=== PATIENT | male | born 1945 | race Caucasian/White ===

== ENCOUNTER 2016-02-22 11:11 | Outpatient (RCR) | payer BC, OTHER ==
[~2016-02-22 11:11] MED LIST: AMBROTOSE PO; AMLO5TAB2 PO; ASP325T PO; ATOR40TA PO; CLOP75TA PO; DCS100C PO; GARL400T13 PO; HYDR-3454 PO; LISI5TAB PO; METH500T7 PO; METO25TA2 PO; MTF500T PO; OMEG-12 PO; RANI75TA30 PO; SAWP1CAP PO; VITA200C53 PO; latanaprost OU
== END 2016-03-15 08:53 | disposition home or self-care (01) ==
PROVIDERS: ATTEND Nurse Practitioner
DX: M25.511 Pain in right shoulder (principal)

== ENCOUNTER → 2016-08-02 | Outpatient (CLI) | payer MEDICARE, OTHER | LOC: CARD 11:10 | PROVIDERS: ATTEND Physician Assistant | DX: I25.10 Atherosclerotic heart disease of native coronary artery without angina pectoris (principal); I10 Essential (primary) hypertension; E78.2 Mixed hyperlipidemia | CPT/HCPCS: 93306 ==

== ENCOUNTER → 2016-08-21 | Outpatient (CLI) | payer MEDICARE, OTHER ==
[~2016-08-21] MED LIST changes: +CATHETER FLUSH 10 ML SYR IV PRN; +REGADENOSON 0.4 MG/5 ML SYR (LEXISCAN) IV ONE
[2016-08-21 09:15] VITALS: BP 127/65
--- NOTE | 2016-08-21 14:16 | STRESS TEST ---
PROCEDURE PHYSICIAN: PATT CHOI DATE OF PROCEDURE: 08/21/2016 LEXISCAN MYOVIEW STRESS TEST REPORT: REFERRING PHYSICIAN: Mel Aragon APRN BASELINE HEART RATE: 50 BASELINE BLOOD PRESSURE: 122/64 BASELINE EKG: Sinus rhythm with no ischemic changes. IN SUMMARY: The patient was injected with 10.44 mCi of technetium 99 Myoview and the resting images were obtained. Then the patient received 0.4 mg of Lexiscan followed by 30.9 mCi of technetium 99 Myoview. Throughout the test, there were no EKG changes. The resting and stress images were reviewed and compared in the short axis, horizontal long axis, and vertical long axis views. Review of the images showed diaphragmatic attenuation with typical male pattern. No significant ischemia or infarction was seen. SSS is 4, SDS 2, TID value 1.01. On the gated images, the left ventricle appeared to be normal size with normal contractility. Calculated ejection fraction 60%. IN CONCLUSION: 1. The patient tolerated Lexiscan well. 2. Diaphragmatic attenuation with typical male pattern. No significant ischemia or infarction on SPECT images. 3. Normal left ventricular size with normal contractility. Calculated ejection fraction 60%. Job ID: [id number] Dictated Date: 08/21/2016 12:31:42 Advertising Intern Date: 08/21/2016 14:12:42 / chayo
== END ==
LOC: CARD 07:45
PROVIDERS: ATTEND Physician Assistant
DX: E78.2 Mixed hyperlipidemia; I10 Essential (primary) hypertension; I25.10 Atherosclerotic heart disease of native coronary artery without angina pectoris
CPT/HCPCS: 78452; 93017

== ENCOUNTER → 2017-03-14 | Outpatient (CLI) | payer MEDICARE, OTHER ==
[~2017-03-14] MED LIST changes: -CATHETER FLUSH 10 ML SYR IV PRN; -REGADENOSON 0.4 MG/5 ML SYR (LEXISCAN) IV ONE
--- NOTE | 2017-03-14 12:30 | Diagnostic Imaging Report ---
PROCEDURE: US Bilateral lower extremity arterial. TECHNIQUE: Multiple Real-time grayscale images are obtained through both lower extremity arterial systems with color Doppler imaging and color Doppler spectral analysis. INDICATION: Bilateral leg pain. FINDINGS: Postsurgical changes on the right are identified. The patient reportedly has a right iliofemoral graft as well as a right femoropopliteal graft. The grafts appear to be patent. There are primarily biphasic waveforms throughout both the right and left lower extremity arterial systems. No occlusions are seen. No elevated velocity to suggest a stenosis is identified. IMPRESSION: The right-sided grafts are patent. No high-grade stenosis or occlusion is identified. Dictated by: Dictated on workstation # [id number]
== END ==
LOC: RAD 08:46
PROVIDERS: ATTEND Family Medicine
DX: M79.604 Pain in right leg (principal); M79.605 Pain in left leg
CPT/HCPCS: 93925

== ENCOUNTER 2017-04-05 10:45 | Outpatient (RCR) | payer OTHER | END 2017-04-05 11:20 | disposition home or self-care (01) | PROVIDERS: ATTEND Nurse Practitioner | DX: M54.5 Low back pain (principal) ==

== ENCOUNTER → 2018-01-31 | Outpatient (CLI) | payer MEDICARE, OTHER | LOC: CARD 10:51 | PROVIDERS: ATTEND Family Medicine | DX: I25.10 Atherosclerotic heart disease of native coronary artery without angina pectoris (principal); I65.29 Occlusion and stenosis of unspecified carotid artery; I10 Essential (primary) hypertension; E78.2 Mixed hyperlipidemia; E11.9 Type 2 diabetes mellitus without complications; I08.0 Rheumatic disorders of both mitral and aortic valves | CPT/HCPCS: 93306 ==

== ENCOUNTER → 2019-04-30 | Day surgery (SDC) | payer MEDICARE, OTHER ==
[~2019-04-30] VITALS: Ht 177.8 cm; Wt 66.8 kg
[~2019-04-30] MED LIST changes: +LIDOCAINE 1% INJ 20 ML 20 ML VIAL ONE
[2019-04-30 08:33] VITALS: BP 130/68
--- NOTE | 2019-04-30 08:50 | NUR ---
LIDOCAINE 1% 20 ML ADMIN FOR LOOP INSERTION
--- NOTE | 2019-04-30 10:02 | Implantation of Loop Monitor ---
Implant of Loop Monitior IMPLANTATION OF LOOP MONITOR REPORT DATE OF PROCEDURE: 04/30/19 PREOP DIAGNOSIS: Paroxysmal atrial fibrillation POSTOP DIAGNOSIS: Paroxysmal atrial fibrillation PROCEDURE DETAILS: The patient is a 74 male with history of paroxysmal atrial fibrillation requiring long-term surveillance. Therefore implantable loop recorder was discussed and agreed with the patient. Informed consent was taken. All risks and complications were discussed at length. The patient was draped and prepped in the usual sterile fashion. Local anesthesia was lidocaine, which was given in the substernal area close to the 4th intercostal space. Loop monitor [employer] [id number] was implanted according to the protocol. Steri-Strips were placed at the end of the procedure. There were no complications and the patient tolerated the procedure well. The device was interrogated with a voltage of. ANESTHESIA: Local anesthesia with lidocaine. COMPLICATIONS: None CONTRAST/FLUOROSCOPY: None CONCLUSION: Successful implantation of loop recorder with application PATT CHOI MD Apr 30, 2019 10:02
== END ==
LOC: CATH 08:00
PROVIDERS: ATTEND Internal Medicine Cardiovascular Disease
DX: I48.0 Paroxysmal atrial fibrillation (principal); E11.51 Type 2 diabetes mellitus with diabetic peripheral angiopathy without gangrene; I10 Essential (primary) hypertension; I25.10 Atherosclerotic heart disease of native coronary artery without angina pectoris; I27.20 Pulmonary hypertension, unspecified; I65.29 Occlusion and stenosis of unspecified carotid artery; I35.1 Nonrheumatic aortic (valve) insufficiency; E78.2 Mixed hyperlipidemia; Z79.899 Other long term (current) drug therapy; Z79.82 Long term (current) use of aspirin; Z79.84 Long term (current) use of oral hypoglycemic drugs; Z83.3 Family history of diabetes mellitus; Z82.3 Family history of stroke
CPT/HCPCS: 33285

== ENCOUNTER → 2019-06-16 | Outpatient (CLI) | payer MEDICARE, OTHER ==
[~2019-06-16] MED LIST changes: -LIDOCAINE 1% INJ 20 ML 20 ML VIAL ONE
== END ==
LOC: CARD 08:13
PROVIDERS: ATTEND Internal Medicine Cardiovascular Disease
DX: I73.9 Peripheral vascular disease, unspecified (principal); I48.0 Paroxysmal atrial fibrillation; I10 Essential (primary) hypertension; E78.2 Mixed hyperlipidemia; I25.10 Atherosclerotic heart disease of native coronary artery without angina pectoris; I08.3 Combined rheumatic disorders of mitral, aortic and tricuspid valves
CPT/HCPCS: 93306

== ENCOUNTER 2019-12-24 07:17 | Emergency (ER) | payer MEDICARE, OTHER ==
[~2019-12-24] VITALS: Ht 177 cm; Wt 67.0 kg
[2019-12-24] MEDS ORDERED: HYDROcodone/APAP 5 MG/325 MG (LORTAB) TAB PO ONE (07:45)
[2019-12-24] MEDS ORDERED: ORPHENADRINE 60 MG/2 ML (NORFLEX) AMP (ED ONLY) IM ONE (07:45)
--- NOTE | 2019-12-24 07:48 | ED Back Pain ---
General Chief Complaint: Back Problems Stated Complaint: LEG PAIN Source of Information: Patient Exam Limitations: No Limitations History of Present Illness Date Seen by Provider: Dec 24, 2019 Time Seen by Provider: 07:30 Initial Comments Patient is a 74yo male who presents to the ER with a chief complaint of low back pain. He states that it started last night all of a sudden. He denies any strenuous activity. No heavy lifting. He states that it radiated down both legs, but is not constant in his legs, only in his back. Movement seems to make the pain worse, although he did state that he got a little relief laying on his left side. He used an over the counter muscle rub without relief. Did not take any tylenol, ibuprofen. Patient denies belly pain. He denies any loss of continence - either bowel or bladder. He states that he has control of his urine. He denies numbness to his groin/ lower. extremities. No other GI or complaints. All other ROS reviewed and negative except as stated. Location: Lumbar Spine Timing/Duration: 12 Hours Severity: Severe Pain/Injury Location: Back Radiation: Lower Legs, Upper Legs Method of Injury: Other Allergies and Home Medications Allergies Coded Allergies: NKANo Known Allergies (Verified Allergy, Unknown, 02/28/06) Home Medications Amlodipine Besylate 5 Mg Tablet, 5 MG PO DAILY, (Reported) Aspirin 325 Mg Tab, 325 MG PO DAILY, (Reported) Docusate Sodium 100 Mg Cap, 100 MG PO BID Prescribed by: DEE PAGAN on 08/08/13 08 Hydrocodone Bit/Acetaminophen 1 Each Tablet, 1 TAB PO Q4H PRN for PAIN Prescribed by: DEE PAGAN on 08/08/13835 Lisinopril 5 Mg Tablet, 10 MG PO DAILY, (Reported) Metformin Hcl 500 Mg Tablet, 1 EACH PO BID WITH MEALS, (Reported) Methocarbamol 500 Mg Tablet, 500 MG PO TID Prescribed by: DEE PAGAN on 08/08/13835 Metoprolol Tartrate 25 Mg Tablet, 12.5 MG PO BID Prescribed by: DEE PAGAN on 08/08/13835 Chloe-3/Dha/Epa/Fish Oil 1 Each Capsule.dr, 3 EACH PO DAILY, (Reported) Ranitidine Hcl 75 Mg Tablet, 150 MG PO BID, (Reported) Patient Home Medication List Home Medication List Reviewed: Yes Review of Systems Constitutional: no symptoms reported EENTM: no symptoms reported Respiratory: no symptoms reported Cardiovascular: no symptoms reported Gastrointestinal: no symptoms reported Genitourinary: no symptoms reported Musculoskeletal: back pain Skin: no symptoms reported All Other Systems Reviewed Negative Unless Noted: Yes Past Folgtzc-Gltuqe-Yapkpj Hx Patient Social History Alcohol Use: Denies Use Recreational Drug Use: No Smoking Status: Former Smoker Recent Hopitalizations: No Physical Abuse: No Sexual Abuse: No Immunizations Up To Date Tetanus Booster (TDap): Less than 5yrs Date of Pneumonia Vaccine: Nov 12, 2017 Date of Influenza Vaccine: Nov 12, 2018 Past Medical History Surgeries: Yes (BACK SX, AVR) Valve Replacement Respiratory: No Cardiac: Yes (CAD/MT ) Coronary Artery Disease, High Cholesterol, Hypertension, Peripheral Vascular, Valvular Heart Disease Neurological: No Genitourinary: No Gastrointestinal: Yes Polyps Musculoskeletal: Yes Back Injury Endocrine: Yes Diabetes, Non-Insulin dep Cancer: No Blood Disorders: No Adverse Reaction/Blood Tranf: No Family Medical History Cancer of colon G8 BROTHER (colon & bladder ca at age 63) G8 BROTHER (unknown ca at 65) Chest pain G8 SISTER (mi & htn) Family history: Cardiovascular disease 19 FATHER (68) G8 BROTHER History of - respiratory disease 19 MOTHER (complications from emphesma) Physical Exam Vital Signs Vital Signs - First Documented 12/24/19 07:20 Temp 36.5 Pulse 65 Resp 16 B/P (MAP) 126/65 (85) Pulse Ox 94 Capillary Refill : Height, Weight, BMI Height: 5'10.00" Weight: 144lbs. 0.0oz. 65.911855bp; 21.13 BMI Method: General Appearance: No Apparent Distress, WD/WN, Thin Neck: Full Range of Motion Cardiovascular: Regular Rate, Rhythm, No Murmur Respiratory: Lungs Clear, Normal Breath Sounds, No Accessory Muscle Use, No Respiratory Distress Peripheral Pulses: 2+ Femoral (R), 2+ Femoral (L), 2+ Dorsalis Pedis (R), 2+ Left Dors-Pedis (L) Gastrointestinal: Normal Bowel Sounds, No Pulsatile Mass, Non Tender, Soft Extremity: Normal Capillary Refill, Normal Inspection, Normal Range of Motion, Non Tender, Other (2+ patellar reflexes bilateral LE; neg straight leg riase bilaterally (pain in his back with SLR)) Neurologic/Psychiatric: Alert, Oriented x3, No Motor/Sensory Deficits, Normal 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, 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 as Tested Skin: Normal Color, Warm/Dry Progress/Results/Core Measures Results/Orders My Orders Orders - VICTORINA ORTIZ MD Orphenadrine Inj (Ed Only) (Norflex Inje (12/24/19 07:45) Hydrocodone/Apap 5/325 Tablet (Lortab 5 (12/24/19 07:45) Lumbar Spine - 2-3 Views (12/24/19 08:27) Prednisone Tablet (Deltasone Tablet) (12/24/19 08:30) Medications Given in ED Current Medications Medications Dose Ordered Sig/Tee Route Start Time Stop Time Status Last Admin Dose Admin Acetaminophen/ Hydrocodone Bitart 1 tab ONCE ONCE PO 12/24/19 07:45 12/24/19 07:46 DC 12/24/19 07:53 1 TAB Orphenadrine Citrate 30 mg ONCE ONCE IM 12/24/19 07:45 12/24/19 07:46 DC 12/24/19 07:53 30 MG Prednisone 40 mg ONCE ONCE PO 12/24/19 08:30 12/24/19 08:31 DC 12/24/19 08:45 40 MG Vital Signs/I&O 12/24/19 07:20 Temp 36.5 Pulse 65 Resp 16 B/P (MAP) 126/65 (85) Pulse Ox 94 Progress Progress Note : Time: 08:28 Progress Note 74yo male to the ER with a complaint of low back pain - reevaluation after norflex and lortab reveal continuation of pain - not much improvement. He does not have pain in his legs, just his low back. will obtain plain xrays of his lumbar spine while waiting for meds to continue to work. I will also add 40mg of prednisone to the regimen. Anticipate follow up with his PCP, Dr Rodriguez. THe patient does not have any findings concerning for AAA, acute cauda equina syn drome..No clinical or objective findings to warrant emergent CT or MRI. I believe his pain can be conservatively managed until he follows up with his PCP. 0912 Patient states that he is feeling a little better. Discussed follow up with his PCP and physical therapy. Home with prednisone and lortab for pain. Also recommendations for over the counter pain relief patches. Diagnostic Imaging Diagonstic Imaging: Xray Plain Films/CT/US/NM/MRI: other (lumbar spine) Comments evidence of prior fusion at L2, L3. other shi normal alighnment; degenerative joint disease; no obvious fractures/dislocations (interpreted by me) Departure Impression Primary Impression: Lumbar back pain Disposition: HOME, SELF-CARE Condition: Stable Departure-Patient Inst. Decision time for Depature: 09:06 Referrals: JAYLA RODRIGUEZ DO (PCP/Family) Primary Care Physician Patient Instructions: Low Back Pain in Adults Add. Discharge Instructions: Take the hydrocodone every 6 hours as needed for pain. When you are not taking this - take plain tylenols, 2 pills every 4 hours as needed for discomfort. You can get over the counter SALONPAS patches. these are pain patches that you put over the sore areas of your back and they will help relieve your pain. I have also given you a prescription for steroids, take these daily for 5 days with food. Please call and follow up with your primary care doctor. You will need a physical therapy referral to get some therapy to help your back. Be careful with the Hydrocodone, it can make you a little off-balance, cause drowsiness and poor coordination. All discharge instructions reviewed with patient and/or family. Voiced understanding. Scripts Hydrocodone/Acetaminophen (Hydrocodone/Acetaminophen 5 MG/325 MG TAB) 1 Each Tablet 1 TAB PO Q6H PRN for PAIN-MODERATE (5-7) MDD 10 TABS for 3 Days, #10 TAB Prov: VICTORINA ORTIZ MD 12/24/19 Prednisone (Prednisone) 20 Mg Tab 40 MG PO DAILY, #6 TAB 0 Refills Prov: VICTORINA ORTIZ MD 12/24/19 Images Torso/Trunk 1 - Severe VICTORINA ORTIZ MD Dec 24, 2019 07:48
--- NOTE | 2019-12-24 08:00 | NUR ---
UPDATED ON PT CONDITION
--- NOTE | 2019-12-24 08:00 | NUR ---
Note kamini in [facility], [place] - 12/24/19 at 0826 by MIKE SPOKE TO PT UPDATING ON SITUATION Addendum: 12/24/19 at 0826 by MIKE Darrick suárez in [facility], [place] - 12/24/19 at 0826 by MIKE SPOKE W UPDATED ON PT CONDITION
[2019-12-24] MEDS ORDERED: predniSONE 20 MG TAB PO ONE (08:30)
--- NOTE | 2019-12-24 09:01 | Diagnostic Imaging Report ---
INDICATION: Low back pain and leg pain starting last night. TECHNIQUE: AP, Lateral, and Spot imaging of the lumbar spine CORRELATION STUDY: None. FINDINGS: There is mild leftward curvature of the lumbar spine with the apex at approximately the L3 level. This is also some straightening. There is slight loss of height with anterior wedging, particularly at the L3 and L2 levels. Various degrees of disc space narrowing are most severe at the L2-L3, L4-L5, and L5-S1 levels. Scattered hypertrophic facet arthropathy is progressive in severity at the mid and lower levels. Prominent calcification of the abdominal aorta. SI joints are unremarkable. IMPRESSION: Slight loss of height with anterior wedging at the L2 and L3 levels. The age of this is indeterminate but favors chronic findings. Rather significant multilevel degenerative disc disease and hypertrophic facet arthropathy. Likely component of various degrees of canal and foraminal narrowing owing to the degenerative change. Dictated by: Dictated on workstation # [id number]
[2019-12-24] MEDS ORDERED: HYDR-4226 PO (09:15)
[2019-12-24] MEDS ORDERED: PRD20T PO (09:15)
[2019-12-24 09:19] VITALS: BP 124/65
== END 2019-12-24 09:19 | disposition home or self-care (01) ==
LOC: EDUNIT# 07:17 → ER 07:18
DX: M54.5 Low back pain (principal); E11.51 Type 2 diabetes mellitus with diabetic peripheral angiopathy without gangrene; I10 Essential (primary) hypertension; I25.10 Atherosclerotic heart disease of native coronary artery without angina pectoris; E78.00 Pure hypercholesterolemia, unspecified; Z80.0 Family history of malignant neoplasm of digestive organs; Z87.891 Personal history of nicotine dependence; Z79.84 Long term (current) use of oral hypoglycemic drugs; Z79.82 Long term (current) use of aspirin; Z79.899 Other long term (current) drug therapy
CPT/HCPCS: 72100

== ENCOUNTER → 2020-01-26 | Outpatient (CLI) | payer MEDICARE, OTHER ==
[~2020-01-26] MED LIST changes: +CATHETER FLUSH 10 ML SYR IV PRN; +HOLD METFORMIN - RECEIVED CONTRAST 20 ML VIAL IV SCH; +HYDR-4226 PO; +IOHEXOL 350 MG/ML 100 ML (OMNIPAQUE 350) VIAL IV ONE; +NS 100 ML (IVPB) BAG IV ONE; +PRD20T PO
--- NOTE | 2020-01-26 15:33 | Diagnostic Imaging Report ---
PROCEDURE: CT abdomen and pelvis with contrast. TECHNIQUE: Multiple contiguous axial images were obtained through the abdomen and pelvis after administration of intravenous contrast. Auto Exposure Controls were utilized during the CT exam to meet ALARA standards for radiation dose reduction. All CT scans use one or more of the following dose optimizing techniques: automated exposure control, MA and/or KvP adjustment based on patient size and exam type or iterative reconstruction. INDICATION: Weight loss The previous CT abdomen/pelvis exam of 07/29/2013 failed to show any sign of an acute abnormality of the abdomen and pelvis. There was a right-sided pneumothorax without mediastinal shift however. Multiple right-sided rib fractures are also seen. The liver is homogeneous not enlarged. There is a small area of diminished density along the posterior aspect of the spleen. I suspect this is more likely due to a vascular phenomena than to a parenchymal abnormality. The pancreas, the adrenals and kidneys, aorta and inferior vena cava and gallbladder show no sign of an acute abnormality. There are several cysts associated with both kidneys. These have increased in size since the prior exam. The largest of these cysts is along the superior pole of the left kidney and measures 2 cm in size. There is a similar sized cyst along the inferior pole of the left kidney as well. There are numerous diverticula involving the sigmoid and descending colon but there is no sign of acute diverticulitis. There are few fluid-filled segments of small bowel low in the pelvis. These are nonspecific. The appendix is not well-visualized. There are no indirect signs of acute appendicitis. The urinary bladder and prostate gland are grossly unremarkable. There is no sign of an acute bony abnormality but there is severe degenerative disc and bone disease throughout the lumbar spine. Multiple healed rib fractures are also seen on the right. The images through the lung bases do show vague area of increased density along the periphery of the right lower lobe. This may well be secondary to scar formation from the patient's prior traumatic episode. The possibility of acute pneumonia/atelectasis would be less likely but should also be considered. The left lung is generally clear. IMPRESSION: 1. There is no acute abnormality of the abdomen or pelvis. 2. There is diverticulosis of the sigmoid and descending colon without evidence for acute diverticulitis. 3. The areas of increased density along the periphery of the right lung base may well be secondary to scar formation from the patient's prior trauma. The possibility of acute pneumonia/atelectasis would be unlikely but should still be considered. Dictated by: Dictated on workstation # [id number]
== END ==
LOC: RAD 12:45
PROVIDERS: ATTEND Family Medicine
DX: K57.30 Diverticulosis of large intestine without perforation or abscess without bleeding (principal); J98.4 Other disorders of lung
CPT/HCPCS: 74177

== ENCOUNTER 2020-02-02 08:20 | Inpatient (IN) | payer MEDICARE, OTHER ==
[~2020-02-02] VITALS: Ht 177.8 cm; Wt 65.2 kg
[~2020-02-02 08:20] MED LIST changes: -CATHETER FLUSH 10 ML SYR IV PRN; -HOLD METFORMIN - RECEIVED CONTRAST 20 ML VIAL IV SCH; -IOHEXOL 350 MG/ML 100 ML (OMNIPAQUE 350) VIAL IV ONE; -NS 100 ML (IVPB) BAG IV ONE
[2020-02-02] MEDS ORDERED: LACTATED RINGERS 1,000 ML IV ONE (08:45)
[2020-02-02 08:59] LABS: BASOPHILS % (AUTO) 0 % (0-10); EOSINOPHILS % (AUTO) 0 % (0-10); HEMATOCRIT 30 % (40-54); HEMOGLOBIN 10.6 g/dL (13.3-17.7); LYMPHOCYTES # (AUTO) 1.1 10^3/uL (1.0-4.0); LYMPHOCYTES % (AUTO) 8 % (12-44); MEAN CORPUSCULAR HEMOGLOBIN 29 pg (25-34); MEAN CORPUSCULAR HGB CONC 35 g/dL (32-36); MEAN CORPUSCULAR VOLUME 82 fL (80-99); MONOCYTES # (AUTO) 1.6 10^3/uL (0.0-1.0); MONOCYTES % (AUTO) 11 % (0-12); NEUTROPHILS # (AUTO) 11.7 10^3/uL (1.8-7.8); NEUTROPHILS % (AUTO) 80 % (42-75); WHITE BLOOD COUNT 14.6 10^3/uL (4.3-11.0)
--- NOTE | 2020-02-02 09:00 | ED General ---
General Stated Complaint: PAIN,DEHYDRATION,WEIGHT LOSS Source of Information: Patient (PT IS VERY LIMITED HISTORIAN), Spouse (RN SPOKE WITH AND OBTAINED MOST OF HPI) History of Present Illness Date Seen by Provider: Feb 02, 2020 Time Seen by Provider: 08:40 Initial Comments PT ARRIVES VIA POV FROM HOME PT WITH ONGOING ISSUES, AND ARE NO DIFFERENT TODAY IN ANY WAY C/O ONGOING LOWER BACK PAIN, NO INJURY. NO PAIN RIGHT NOW. NO RADIATION OF PAIN NO PARESTHESIAS OR MOTOR DEFICITS C/O DECREASED APPETITE--STATES HE HAS NOT HAD ANYTHING TO EAT OR DRINK TODAY. ? DIFFICULTY SWALLOWING ?? LOSS OF TASTE??--PT CANNOT STATE. C/O WEIGHT LOSS--PT CLAIMS HE HAS LOST 21# IN THE LAST 5 DAYS NO NAUSEA/VOMITING/DIARRHEA/CONSTIPATION NO FEVER/SWEATS/CHILLS NO CHEST PAIN NO SHORTNESS OF BREATH NO PALPITATIONS NO DIZZINESS OR SYNCOPE NO COUGH NO LOSS OF TASTE OR SMELL NO ABDOMINAL PAIN NO PROBLEMS URINATING. REPORTS THAT HIS URINE HAS BEEN DARK. SEEN HERE 12/24/19 FOR NON-TRAUMATIC LOWER BACK PAIN--XRAYS OF LUMBAR SPINE DID NOT SHOW ANY ACUTE PROCESS. PT HAS CHRONIC LOWER BACK PAIN, WITH PRIOR L2-L3 FUSION AND DEGENERATIVE DISC DISEASE. PT WAS GIVEN RX FOR PREDNISONE AND HYDROCODONE PT WAS SEEN AT [facility] STATES AFTER THAT ER VISIT AND HAD EPIDURAL INJECTION PT HAS ALSO BEEN GOING TO THERAPY WITH DR. LOCKETT. PT HAS ALSO BEEN PRESCRIBED ULTRAM, BUT IT CAUSES HIM TO BE "LOOPY AND HALLUC INATE" PT HAD OUTPATIENT CT OF ABDOMEN AND PELVIS DONE ON 01/26/20 WHICH DID NOT SHOW ANY ACUTE PROCESS. ALSO HAD LAB DONE, BUT WAS TOLD "ALL NORMAL" CALLED DR. RODRIGUEZ'S OFFICE TODAY TO MAKE FOLLOW UP APPOINTMENT, AND WAS TOLD TO COME HERE. PT HAS NOT TAKEN ANYTHING FOR PAIN TODAY PT HAS NOT TAKEN ANY OF HIS REGULAR MEDICATIONS TODAY PCP: DR. RODRIGUEZ Allergies and Home Medications Allergies Coded Allergies: KANDACEANo Known Allergies (Verified Allergy, Unknown, 02/28/06) Home Medications Amlodipine Besylate 5 Mg Tablet, 5 MG PO DAILY, (Reported) Aspirin 325 Mg Tab, 325 MG PO DAILY, (Reported) Docusate Sodium 100 Mg Cap, 100 MG PO BID Prescribed by: DEE PAGAN on 08/08/13 0836 Hydrocodone Bit/Acetaminophen 1 Each Tablet, 1 TAB PO Q4H PRN for PAIN Prescribed by: DEE PAGAN on 08/08/13835 Hydrocodone/Acetaminophen 1 Each Tablet, 1 TAB PO Q6H PRN for PAIN-MODERATE (5- 7) Prescribed by: VICTORINA ORTIZ on 12/24/19914 Lisinopril 5 Mg Tablet, 10 MG PO DAILY, (Reported) Metformin Hcl 500 Mg Tablet, 1 EACH PO BID WITH MEALS, (Reported) Methocarbamol 500 Mg Tablet, 500 MG PO TID Prescribed by: DEE PAGAN on 08/08/13835 Metoprolol Tartrate 25 Mg Tablet, 12.5 MG PO BID Prescribed by: DEE PAGAN on 08/08/13835 Aylett-3/Dha/Epa/Fish Oil 1 Each Capsule.dr, 3 EACH PO DAILY, (Reported) Prednisone 20 Mg Tab, 40 MG PO DAILY Prescribed by: VICTORINA ORTIZ on 12/24/19914 Ranitidine Hcl 75 Mg Tablet, 150 MG PO BID, (Reported) Patient Home Medication List Home Medication List Reviewed: Yes Review of Systems Review of Systems Constitutional: No chills, No diaphoresis, No dizziness, No fever; malaise, weakness EENTM: no symptoms reported; No nose congestion, No throat pain, No throat swelling Respiratory: no symptoms reported; No cough, No short of breath Cardiovascular: no symptoms reported; No chest pain, No edema, No palpitations, No syncope Gastrointestinal: see HPI; No abdominal pain, No constipation, No diarrhea; loss of appetite; No nausea, No vomiting Genitourinary: see HPI; No decreased output Musculoskeletal: see HPI, back pain Skin: no symptoms reported Psychiatric/Neurological: No Symptoms Reported; Denies Headache, Denies Numbness, Denies Paresthesia, Denies Seizure, Denies Tingling, Denies Weakness Hematologic/Lymphatic: No Symptoms Reported Immunological/Allergic: no symptoms reported Past Tppxgbr-Mvvlgg-Hwozms Hx Past Med/Social Hx: Reviewed and Corrections made Patient Social History Alcohol Use: Denies Use Recreational Drug Use: No Smoking Status: Former Smoker (QUIT AGE 58) Type Used: Cigarettes Recent Foreign Travel: No Contact w/Someone Who Travel: No Recent Hopitalizations: No Immunizations Up To Date Tetanus Booster (TDap): Less than 5yrs Date of Pneumonia Vaccine: Nov 12, 2017 Date of Influenza Vaccine: Nov 12, 2018 Past Medical History Surgeries: Yes (BACK SX, AVR) Cardiac, Coronary Stent, Eye Surgery, Orthopedic, Vascular Surgery Respiratory: Yes (RIGHT PNEUMOTHORAX DUE TO RIB FRACTURES FROM A FALL) Cardiac: Yes (CAD/TN ) Coronary Artery Disease, Heart Attack, High Cholesterol, Hypertension, Peripheral Vascular, Valvular Heart Disease Neurological: No Genitourinary: No Gastrointestinal: Yes Diverticulosis, Polyps Musculoskeletal: Yes (RIGHT RIB FRACTURES) Degenerate Disk Disease, Back Injury, Chronic Back Pain Endocrine: Yes Diabetes, Non-Insulin dep HEENT: Yes Cataract Cancer: No Blood Disorders: No Adverse Reaction/Blood Tranf: No Family Medical History Cancer of colon G8 BROTHER (colon & bladder ca at age 63) G8 BROTHER (unknown ca at 65) Chest pain G8 SISTER (mi & htn) Family history: Cardiovascular disease 19 FATHER (68) G8 BROTHER History of - respiratory disease 19 MOTHER (complications from emphesma) SOCIAL HISTORY: -ETOH-DENIES USE -DRUGS-DENIES USE -SMOKED 1 PPD, QUIT AGE 58 PAST SURGICAL HISTORY: -04/30/19--LOOP RECORDER PLACED DUE TO PAROXYSMAL ATRIAL FIBRILLATION -RIGHT LEG BYPASS--RIGHT ILIAC TO COMMON FEMORAL TO POPLITEAL 2006 -CARDIAC CATH WITH RCA STENT 2006 -BACK SURGERY--L2-L3 FUSION -CATARACT SURGERY Physical Exam Vital Signs Vital Signs - First Documented 02/02/20 08:29 Temp 36.9 Pulse 83 Resp 20 B/P (MAP) 130/58 (82) Pulse Ox 93 O2 Delivery Room Air Capillary Refill : Height, Weight, BMI Height: 5'10.00" Weight: 144lbs. 0.0oz. [id number]; 21.00 BMI Method: General Appearance: No Apparent Distress, WD/WN, Thin HEENT: PERRL/EOMI, Other (ORAL MUCOSA SLIGHTLY DRY) Neck: Normal Inspection Respiratory: Normal Breath Sounds, No Accessory Muscle Use, No Respiratory Distress, Decreased Breath Sounds (DECREASED IN BASES) Cardiovascular: Regular Rate, Rhythm, No Edema, No JVD, Normal Peripheral Pulses, Systolic Murmur (02/17) Gastrointestinal: Normal Bowel Sounds, No Organomegaly, No Pulsatile Mass, Non Tender, Soft Back: Normal Inspection, No CVA Tenderness, No Vertebral Tenderness Extremity: Normal Capillary Refill, Normal Inspection, Normal Range of Motion, Non Tender, No Calf Tenderness, No Pedal Edema Neurologic/Psychiatric: Alert, Oriented x3, No Motor/Sensory Deficits, public works inspector II- XII Norm as Tested Skin: Normal Color, Warm/Dry; No Ecchymosis, No Petechia, No Rash Progress/Results/Core Measures Suspected Sepsis SIRS Temperature: Pulse: Respiratory Rate: Laboratory Tests 02/02/20 08:51: White Blood Count 14.6H Blood Pressure / Mean: Laboratory Tests 02/02/20 08:51: Creatinine 1.03, INR Comment 1.7H, Platelet Count 16*L, Total Bilirubin 1.9H Results/Orders Lab Results Laboratory Tests Test 02/02/20 08:50 02/02/20 08:51 02/02/20 09:05 02/02/20 09:25 Range/Units Glucometer 121 H 70-110 MG/DL White Blood Count 14.6 H 4.3-11.0 10^3/uL Red Blood Count 3.69 L 4.30-5.52 10^6/uL Hemoglobin 10.6 L 13.3-17.7 g/dL Hematocrit 30 L 40-54 % Mean Corpuscular Volume 82 80-99 fL Mean Corpuscular Hemoglobin 29 25-34 pg Mean Corpuscular Hemoglobin Concent 35 32-36 g/dL Red Cell Distribution Width 14.6 H 10.0-14.5 % Platelet Count 16 *L 130-400 10^3/uL Mean Platelet Volume 9.0-12.2 fL Immature Granulocyte % (Auto) 1 % Neutrophils (%) (Auto) 80 H 42-75 % Lymphocytes (%) (Auto) 8 L 12-44 % Monocytes (%) (Auto) 11 0-12 % Eosinophils (%) (Auto) 0 0-10 % Basophils (%) (Auto) 0 0-10 % Neutrophils # (Auto) 11.7 H 1.8-7.8 10^3/uL Lymphocytes # (Auto) 1.1 1.0-4.0 10^3/uL Monocytes # (Auto) 1.6 H 0.0-1.0 10^3/uL Eosinophils # (Auto) 0.0 0.0-0.3 10^3/uL Basophils # (Auto) 0.0 0.0-0.1 10^3/uL Immature Granulocyte # (Auto) 0.2 H 0.0-0.1 10^3/uL Neutrophils % (Manual) 86 % Lymphocytes % (Manual) 7 % Monocytes % (Manual) 5 % Eosinophils % (Manual) 0 % Basophils % (Manual) 0 % Band Neutrophils 2 % Poikilocytosis SLIGHT Elliptocytes SLIGHT Prothrombin Time 20.4 H 12.2-14.7 SEC INR Comment 1.7 H 0.8-1.4 Activated Partial Thromboplast Time 31 24-35 SEC Sodium Level 133 L 135-145 MMOL/L Potassium Level 5.4 H 3.6-5.0 MMOL/L Chloride Level 103 98-107 MMOL/L Carbon Dioxide Level 20 L 21-32 MMOL/L Anion Gap 10 5-14 MMOL/L Blood Urea Nitrogen 55 H 7-18 MG/DL Creatinine 1.03 0.60-1.30 MG/DL Estimat Glomerular Filtration Rate > 60 BUN/Creatinine Ratio 53 Glucose Level 124 H 70-105 MG/DL Calcium Level 8.2 L 8.5-10.1 MG/DL Corrected Calcium 9.3 8.5-10.1 MG/DL Magnesium Level 2.0 1.6-2.4 MG/DL Total Bilirubin 1.9 H 0.1-1.0 MG/DL Aspartate Amino Transf (AST/SGOT) 40 H 5-34 U/L Alanine Aminotransferase (ALT/SGPT) 43 0-55 U/L Alkaline Phosphatase 97 40-136 U/L Total Protein 5.2 L 6.4-8.2 GM/DL Albumin 2.6 L 3.2-4.5 GM/DL Amylase Level 41 25-125 U/L Lipase 23 8-78 U/L Urine Color DARK YELLOW Urine Clarity SL CLOUDY Urine pH 5.5 5-9 Urine Specific [place] 1.015 L 1.016-1.022 Urine Protein TRACE H NEGATIVE Urine Glucose (UA) NEGATIVE NEGATIVE Urine Ketones NEGATIVE NEGATIVE Urine Nitrite NEGATIVE NEGATIVE Urine Bilirubin NEGATIVE NEGATIVE Urine Urobilinogen 2.0 < = 1.0 MG/DL Urine Leukocyte Esterase NEGATIVE NEGATIVE Urine RBC (Auto) TRACE-L NEGATIVE Urine RBC 0-2 /HPF Urine WBC RARE /HPF Urine Squamous Epithelial Cells RARE /HPF Urine Crystals NONE /LPF Urine Bacteria NEGATIVE /HPF Urine Casts NONE /LPF Urine Mucus NEGATIVE /LPF Urine Culture Indicated NO Coronavirus 2019 (KRISTY) Negative Negative Micro Results Microbiology 02/02/20 Influenza Types A,B Antigen (VENKAT) - Final, Complete My Orders Orders - MAIRA DAVIS DO Ed Iv/Invasive Line Start (02/02/20 08:38) Ekg Tracing (02/02/20 08:38) Monitor-Rhythm Ecg Trace Only (02/02/20 08:38) Amylase (02/02/20 08:38) Cbc With Automated Diff (02/02/20 08:38) Comprehensive Metabolic Panel (02/02/20 08:38) Lipase (02/02/20 08:38) Magnesium (02/02/20 08:38) Protime With Inr (02/02/20 08:38) Partial Thromboplastin Time (02/02/20 08:38) Ua Culture If Indicated (02/02/20 08:38) Ed Iv/Invasive Line Start (02/02/20 08:38) Lactated Ringers (Lr 1000 Ml Iv Solution (02/02/20 08:45) Chest 1 View, Ap/Pa Only (02/02/20 08:38) Accucheck Stat ONCE (02/02/20 08:41) Manual Differential (02/02/20 08:51) Influenza A And B Antigens (02/02/20 09:23) Coronavirus Sars-Cov-2 So 2019 (02/02/20 09:23) Covid 19 Inhouse Test (02/02/20 09:23) Ct Chest Wo (02/02/20 09:26) Ct Head Wo (02/02/20 09:26) Ct Neck (Soft Tissue) Wo (02/02/20 09:26) Ed Iv/Invasive Line Start (02/02/20 10:03) Ns Iv 1000 Ml (Sodium Chloride 0.9%) (02/02/20 10:15) Ceftriaxone For Iv Use (Rocephin For I (02/02/20 10:30) Azithromycin Injection (Zithromax Inject (02/02/20 10:30) Dexamethasone Injection (Decadron Inje (02/02/20 10:45) Lactic Acid Analyzer (02/02/20 10:41) Procalcitonin (Pct) (02/02/20 10:41) Blood Culture (02/02/20 11:26) Medications Given in ED Current Medications Medications Dose Ordered Sig/Tee Route Start Time Stop Time Status Last Admin Dose Admin Azithromycin 500 mg/Sodium Chloride 255 ml @ 250 mls/hr ONCE ONCE IV 02/02/20 10:30 02/02/20 11:31 DC 02/02/20 11:02 250 MLS/HR Ceftriaxone Sodium 1000 mg/ Sterile Water 10 ml @ 200 mls/hr ONCE ONCE IV 02/02/20 10:30 02/02/20 10:32 DC 02/02/20 11:01 200 MLS/HR Lactated Ringer's 1,000 ml @ 0 mls/hr Q0M ONCE IV 02/02/20 08:45 02/02/20 08:46 DC 02/02/20 09:06 0 MLS/HR Vital Signs/I&O 02/02/20 08:29 Temp 36.9 Pulse 83 Resp 20 B/P (MAP) 130/58 (82) Pulse Ox 93 O2 Delivery Room Air Capillary Refill : Point of Care Testing Finger Stick Blood Glucose: 121 Progress Note : Progress Note O2 SATS 88-90% ON ROOM AIR--UP TO 95-97% ON 4L/NC PT PLACED IN ISOLATION ROOM PPE WORN COVID-19 TESTING PERFROMED UNEVENTFUL ER STAY ECG Initial ECG Impression Date: Feb 02, 2020 Initial ECG Impression Time: 08:41 Initial ECG Rate: 82 Initial ECG Rhythm: Normal Sinus Diagnostic Imaging Comments CXR--PER RADIOLOGIST REPORT AT 0926 IMPRESSION: 1. Nonspecific right mid and lower lung zone opacification which may relate to infiltrate such as pneumonia, aspiration, or other alveolar consolidative process. There also may be components of atelectasis 2. Blunting of the right lateral costophrenic angle which potentially could indicate a small right pleural effusion. 3. Multiple chronic appearing right rib deformities. CT SCANS--ALL PER RADIOLOGIST REPORTS AT 1025 CHEST--IMPRESSION: Right basilar infiltrate or atelectasis. There is also an indeterminate 11 mm nodular density in the right lower lobe. PET/CT study may be useful to evaluate for hypermetabolism. There also appears to be diffuse pleural thickening involving the right hemithorax. HEAD--IMPRESSION: Indeterminate focus of hyperattenuation in the right cerebellum may be artifactual or represent benign calcification. Small hemorrhage cannot be excluded. This could be further evaluated with MRI. NECK SOFT TISSUES-- IMPRESSION: 1. Appropriate symmetry of the aerodigestive tract. 2. No evidence of pathologic adenopathy. 3. No soft tissue mass, fluid collection or focal inflammatory changes demonstrated. 4. Degenerative changes in the cervical spine with severe spinal canal stenosis at multiple levels. 5. Centrilobular emphysema in the lung apices. Reviewed: Reviewed by Me Departure Communication (Admissions) 1029--ATTEMPTING TO CONTACT DR. PEÑA, HOSPITALIST. MESSAGE LEFT ON CELL 1041--MESSAGE LEFT ON DR. PEÑA'S CELL 1054--SPOKE WITH DR. PEÑA, ACCEPTS PT FOR ADMIT. WILL CONSULT DR. ORTIZ/PULMONOLOGY AND DR. CAMPOS/HEMATOLOGY-ONCOLOGY Impression Primary Impression: RIGHT SIDED PNEUMONIA Additional Impressions: Weight loss Thrombocytopenia Mild anemia Dehydration Hypoxia Person under investigation for COVID-19 Malnutrition NIDDM HTN (hypertension) Paroxysmal atrial fibrillation Chronic back pain Disposition: ADMITTED INPATIENT Condition: Stable Admissions Decision to Admit Reason: Admit from ER (General) Decision to Admit/Date: Feb 02, 2020 Time/Decision to Admit Time: 10:30 Departure-Patient Inst. Referrals: JAYLA RODRIGUEZ DO (PCP/Family) Primary Care Physician MAIRA DAVIS DO Feb 02, 2020 09:00
[2020-02-02 09:05] LABS: PLATELET COUNT 16 10^3/uL (130-400)
[2020-02-02 09:11] LABS: INR 1.7 (0.8-1.4); PROTHROMBIN TIME PATIENT 20.4 SEC (12.2-14.7)
[2020-02-02 09:12] LABS: ALBUMIN 2.6 GM/DL (3.2-4.5); CHLORIDE 103 MMOL/L (98-107); POTASSIUM 5.4 MMOL/L (3.6-5.0); SODIUM 133 MMOL/L (135-145)
[2020-02-02 09:12] LABS: BILIRUBIN,URINE NEGATIVE (NEGATIVE); CLARITY,URINE SL CLOUDY; COLOR,URINE DARK YELLOW; GLUCOSE, URINE (UA) NEGATIVE (NEGATIVE); KETONES,URINE NEGATIVE (NEGATIVE); LEUKOCYTE ESTERASE ,URINE NEGATIVE (NEGATIVE); NITRITE,URINE NEGATIVE (NEGATIVE); PH,URINE 5.5 (5-9); PROTEIN,URINE TRACE (NEGATIVE)
[2020-02-02 09:14] LABS: AMYLASE 41 U/L (25-125); CALCIUM 8.2 MG/DL (8.5-10.1)
[2020-02-02 09:15] LABS: GLUCOSE 124 MG/DL (70-105); TOTAL PROTEIN 5.2 GM/DL (6.4-8.2)
[2020-02-02 09:16] LABS: CARBON DIOXIDE 20 MMOL/L (21-32)
[2020-02-02 09:17] LABS: BILIRUBIN,TOTAL 1.9 MG/DL (0.1-1.0)
[2020-02-02 09:18] LABS: ALKALINE PHOSPHATASE 97 U/L (40-136); CREATININE SERUM 1.03 MG/DL (0.60-1.30); GFR ESTIMATED > 60
[2020-02-02 09:19] LABS: BACTERIA,URINE NEGATIVE /HPF; RBC,URINE 0-2 /HPF; SQUAMOUS EPITHELIAL CELL,UR RARE /HPF; WBC,URINE RARE /HPF
[2020-02-02 09:19] LABS: BUN/CREATININE RATIO 53
[2020-02-02 09:21] LABS: ALANINE AMINOTRANSFERASE 43 U/L (0-55)
--- NOTE | 2020-02-02 09:21 | Diagnostic Imaging Report ---
EXAMINATION: Chest radiograph, portable AP view. DATE: 02/02/2020 9:14 AM INDICATION: 74-year-old male, weakness. COMPARISON: August 11, 2013. FINDINGS: Stable overall appearance of the cardiomediastinal silhouette. There is no identified pneumothorax. There are right-sided rib deformities noted with interval healing response since the comparison study. There is mild blunting of the right lateral costophrenic angle. There is nonspecific right mid and lower lung zone opacification. IMPRESSION: 1. Nonspecific right mid and lower lung zone opacification which may relate to infiltrate such as pneumonia, aspiration, or other alveolar consolidative process. There also may be components of atelectasis 2. Blunting of the right lateral costophrenic angle which potentially could indicate a small right pleural effusion. 3. Multiple chronic appearing right rib deformities. Dictated by: Dictated on workstation # [id number]
[2020-02-02 09:22] LABS: LIPASE 23 U/L (8-78)
[2020-02-02 09:45] LABS: BAND NEUTROPHILS 2 %; BASOPHILS % (MANUAL) 0 %; ELLIPT/OVALOCYTES SLIGHT; EOSINOPHILS % (MANUAL) 0 %; LYMPHOCYTES % (MANUAL) 7 %; MONOCYTES % (MANUAL) 5 %; NEUTROPHILS % (MANUAL) 86 %; POIKILOCYTOSIS SLIGHT
--- NOTE | 2020-02-02 10:05 | Diagnostic Imaging Report ---
PROCEDURE: CT head without contrast. TECHNIQUE: Multiple contiguous axial images were obtained through the brain without the use of intravenous contrast. Auto Exposure Controls were utilized during the CT exam to meet ALARA standards for radiation dose reduction. INDICATION: Abnormal chest x-ray. Weight loss. COMPARISON: CT head without contrast 07/29/2013. FINDINGS: Moderate generalized cerebral and cerebellar parenchymal volume loss and moderate nonspecific low-attenuation changes in the deep white matter are similar to the prior exam. Small focus of hyperattenuation in the right cerebellum measuring approximately 1 cm. Osseous structures are intact. Visualized paranasal sinuses and mastoids are clear. IMPRESSION: Indeterminate focus of hyperattenuation in the right cerebellum may be artifactual or represent benign calcification. Small hemorrhage cannot be excluded. This could be further evaluated with MRI. Dictated by: Dictated on workstation # [id number]
[2020-02-02] MEDS ORDERED: NS IV 1000 ML 1,000 ML IV SCH (10:15)
--- NOTE | 2020-02-02 10:15 | Diagnostic Imaging Report ---
PROCEDURE: CT neck soft tissue without contrast. TECHNIQUE: Multiple contiguous axial images were obtained through the neck without the use of intravenous contrast. Auto Exposure Controls were utilized during the CT exam to meet ALARA standards for radiation dose reduction. INDICATION: Decreased appetite. Weight loss. Back pain. COMPARISON: 07/29/2013. FINDINGS: The posterior nasopharynx and oropharynx demonstrate appropriate symmetry. There is no displacement of the parapharyngeal fat planes. There is no abnormal process evident within the prevertebral or retropharyngeal space. There is no evidence of abnormal thickening of the epiglottis or aryepiglottic folds. The vocal folds appear symmetric. The parotid, submandibular and thyroid gland are unremarkable. No pathologically enlarged cervical lymph nodes are evident. No focal inflammatory changes are demonstrated. No soft tissue mass or fluid collection demonstrated. Bilateral carotid bulb calcifications are present. Centrilobular emphysema is seen in the lung apices. Visualized orbital contents are unremarkable. The visualized paranasal sinuses are clear. The mastoids and middle ears are clear. No acute osseous abnormality in the cervical spine. Degenerative changes are present in the cervical spine with disc osteophyte complexes and uncovertebral arthropathy. Multiple levels of severe spinal canal stenosis are seen in the cervical spine. IMPRESSION: 1. Appropriate symmetry of the aerodigestive tract. 2. No evidence of pathologic adenopathy. 3. No soft tissue mass, fluid collection or focal inflammatory changes demonstrated. 4. Degenerative changes in the cervical spine with severe spinal canal stenosis at multiple levels. 5. Centrilobular emphysema in the lung apices. Dictated by: Dictated on workstation # [id number]
--- NOTE | 2020-02-02 10:17 | Diagnostic Imaging Report ---
PROCEDURE: CT chest without contrast. TECHNIQUE: Multiple contiguous axial images were obtained through the chest without the use of intravenous contrast. Auto Exposure Controls were utilized during the CT exam to meet ALARA standards for radiation dose reduction. INDICATION: Decreased appetite and back pain. Patient had abnormal chest x-ray. Correlation is made with chest radiograph from earlier the same day. No axillary lymphadenopathy is detected. No definite mediastinal or hilar lymphadenopathy is identified. There is no pericardial fluid. There is some pleural thickening involving the right hemithorax along the lateral chest wall and posteriorly. Pleural thickening may account for some of the opacification noted on the chest radiograph. There also appears to be some infiltrate or atelectasis in the right lower lobe. There is a nodular density in the right lower lobe measuring 11 mm, indeterminate. Left lung is clear. There are some emphysematous changes in both lungs. Numerous healed right-sided posterior and lateral rib fractures are noted. Upper abdomen is unremarkable. IMPRESSION: Right basilar infiltrate or atelectasis. There is also an indeterminate 11 mm nodular density in the right lower lobe. PET/CT study may be useful to evaluate for hypermetabolism. There also appears to be diffuse pleural thickening involving the right hemithorax. Dictated by: Dictated on workstation # [id number]
[2020-02-02] MEDS ORDERED: AZITHROMYCIN INJECTION 500 MG in NS (IVPB) 250 ML IV ONE (10:30)
[2020-02-02] MEDS ORDERED: cefTRIAXone FOR IV USE 1,000 MG in WATER (STERILE) FOR INJECTION 10 ML IV ONE (10:30)
--- NOTE | 2020-02-02 11:47 | NUR ---
updates pts mery, of plan to admit pt.
[2020-02-02] MEDS ORDERED: 1/2 NS IV SOLUTION 1,000 ML IV SCH (12:30)
[2020-02-02] MEDS ORDERED: fentaNYL INJECTION 100 MCG/2 ML AMP IV PRN (12:30)
[2020-02-02] MEDS ORDERED: CATHETER FLUSH 10 ML SYR IV PRN (12:30)
[2020-02-02 12:44] VITALS: BP 120/65
[2020-02-02 12:51] VITALS: BP 120/65
[2020-02-02] MEDS ORDERED: RT-ALBUTEROL/IPRATROPIUM 3 ML (DUONEB) VIAL INH PRN (13:00)
[2020-02-02 15:53] VITALS: BP 120/65
[2020-02-02] MEDS: inSUlin ASPART (NovoLOG) 1 UNIT/0.01 ML (CHARGE PER UNIT) SC SCH ×2 (16:00→20:55)
[2020-02-02] MEDS ORDERED: FLU QUAD HIGH DOSE 240 MCG/0.7 ML 2020-21 (FLUZONE) IM ONE (16:15)
[2020-02-02] MEDS ORDERED: ONDANSETRON 4 MG/2 ML (SDV) Z0FRAN IV PRN (18:45)
[2020-02-02] MEDS ORDERED: ANTACID SUSP 30 ML UDC (MYLANTA) PO PRN (18:45)
[2020-02-02] MEDS ORDERED: ONDANSETRON 4 MG (ZOFRAN) ORAL DISSOLVE TAB PO PRN (18:45)
[2020-02-02] MEDS ORDERED: ACETAMINOPHEN 325 MG TABLET PO PRN (18:45)
[2020-02-02] MEDS ORDERED: polyethylene glycoL POWDER 17 GM (MIRALAX) PACK PO PRN (18:45)
[2020-02-02] MEDS ORDERED: ATOR40TA PO (18:46)
[2020-02-02] MEDS ORDERED: FAMO20TA5 PO (18:46)
[2020-02-02] MEDS ORDERED: APIX5TAB PO (18:46)
[2020-02-02] MEDS ORDERED: DRON400T2 PO (18:46)
--- NOTE | 2020-02-02 18:48 | History & Physical-Hospitalist ---
History of Present Illness HPI/Chief Complaint Lucio Quintero is a 74 year old male with PMH HTN, HLD, CAD, GERD, T2DM, chronic back pain, who presented with dehydration. He is a poor historian. He reportedly had dark urine. He has lost some weight recently. He denies any fevers or chills. He denies shortness of breath and cough. He denies chest pain. He denies abdominal pain. He denies nausea and vomiting. He denies dysuria. He denies any rash. He denies bleeding. He denies hematochezia and melena. He denies any history of low platelets. Source: patient, RN/MD Exam Limitations: no limitations Date Seen 02/02/20 Time Seen by a Provider: 15:30 Attending Physician Beverly Peña MD PCP Miki Rhoades DO Referring Physician Date of Admission Feb 02, 2020 at 10:30 Home Medications & Allergies Home Medications Reviewed patient Home Medication Reconciliation performed by pharmacy medication reconciliations electromechanical technician and/or nursing. Patients Allergies have been reviewed. Allergies Allergies Coded Allergies NKANo Known Allergies (Verified Allergy, Unknown, 02/28/06) Past Pgaftwd-Fcdmur-Xeridf Hx Past Med/Social Hx: Reviewed Nursing Past Med/Soc Hx Patient Social History Alcohol Use: Denies Use Recreational Drug Use: No Smoking Status: Former Smoker (QUIT AGE 58) Type Used: Cigarettes Recent Foreign Travel: No Contact w/other who traveled: No Recent Hopitalizations: No Recent Infectious Disease Expo: No Immunizations Up To Date Tetanus Booster (TDap): Less than 5yrs Date of Pneumonia Vaccine: Nov 12, 2017 Date of Influenza Vaccine: Nov 12, 2018 Past Medical History Surgeries: Cardiac, Coronary Stent, Eye Surgery, Orthopedic, Vascular Surgery Cardiac: Coronary Artery Disease, Heart Attack, High Cholesterol, Hypertension, Peripheral Vascular, Valvular Heart Disease Gastrointestinal: Diverticulosis, Polyps Musculoskeletal: Degenerate Disk Disease, Back Injury, Chronic Back Pain Endocrine: Diabetes, Non-Insulin dep HEENT: Cataract History of Blood Disorders: No Adverse Reaction to Blood [place]: No Family History Cancer of colon G8 BROTHER (colon & bladder ca at age 63) G8 BROTHER (unknown ca at 65) Chest pain G8 SISTER (mi & htn) Family history: Cardiovascular disease 19 FATHER (68) G8 BROTHER History of - respiratory disease 19 MOTHER (complications from emphesma) SOCIAL HISTORY: -ETOH-DENIES USE -DRUGS-DENIES USE -SMOKED 1 PPD, QUIT AGE 58 PAST SURGICAL HISTORY: -04/30/19--LOOP RECORDER PLACED DUE TO PAROXYSMAL ATRIAL FIBRILLATION -RIGHT LEG BYPASS--RIGHT ILIAC TO COMMON FEMORAL TO POPLITEAL 2006 -CARDIAC CATH WITH RCA STENT 2006 -BACK SURGERY--L2-L3 FUSION -CATARACT SURGERY Review of Systems Constitutional: weight loss EENTM: no symptoms reported Respiratory: no symptoms reported Cardiovascular: no symptoms reported Gastrointestinal: no symptoms reported Genitourinary: decreased output Musculoskeletal: no symptoms reported Skin: no symptoms reported Psychiatric/Neurological: No Symptoms Reported Physical Exam Physical Exam Vital Signs Vital Signs - First Documented 02/02/20 02/02/20 02/02/20 08:29 11:56 12:51 Temp 36.9 Pulse 83 Resp 20 B/P (MAP) 130/58 (82) Pulse Ox 93 O2 Delivery Room Air O2 Flow Rate 2.00 FiO2 28 Capillary Refill : Less Than 3 Seconds Height, Weight, BMI Height: 5'10.00" Weight: 144lbs. 0.0oz. 65.111539cn; 18.09 BMI Method: General Appearance: Chronically ill, Cachetic HEENT: PERRL/EOMI, Other (dry mucous membrandes) Neck: Normal Inspection, Supple Respiratory: Lungs Clear, No Respiratory Distress, Decreased Breath Sounds Cardiovascular: Regular Rate, Rhythm, No Edema, No Murmur Gastrointestinal: Normal Bowel Sounds, Non Tender, Soft Extremity: Normal Inspection, Non Tender, No Pedal Edema Neurologic/Psychiatric: Alert, Normal Mood/Affect, Disoriented Skin: Normal Color, Warm/Dry Results Results/Procedures Labs Laboratory Tests 02/02/20 08:51 Patient resulted labs reviewed. Imaging: Reviewed Imaging Report Assessment/Plan Admission Diagnosis Severe sepsis due to pneumonia Admission Status: Inpatient Order (span 2 midnights) Reason for Inpatient Admission: PNA requiring IV antibiotics and fluids Assessment and Plan Severe sepsis Pneumonia Lung nodule CT revealed right lower lobe infiltrate, 11 mm nodule WBC elevated, tachycardic Blood cultures pending Lactic acid normal Procalcitonin elevated Started on Rocephin and Azithromycin IV fluids COVID KRISTY negative, PCR pending Follow up with pulmonology for lung nodule Azotemia IV fluids Thrombocytopenia Microcytic anemia Platelets 16, previously >200 Hgb 10, down from 12 Consult Hematology Check manual platelet count Check fecal occult blood Check iron and folate DVT Prophylaxis: held due to thrombocytopenia Diagnosis/Problems Diagnosis/Problems (1) Severe sepsis Status: Acute (2) PNA (pneumonia) Status: Acute (3) Lung nodule Status: Acute (4) Azotemia Status: Acute (5) Microcytic anemia Status: Acute (6) Thrombocytopenia Status: Acute (7) BMI less than 19,adult Status: Acute Clinical Quality Measures DVT/VTE Risk/Contraindication: Risk Factor Score Per Nursin RFS Level Per Nursing on Admit: 4+=Very High Contraindications-Pharm: Other *list below* Other: Thrombocytopenia BEVERLY PEÑA MD Feb 02, 2020 18:48
[2020-02-02 20:03] VITALS: BP_SYST 101; BP_SYST 96; BP_DIAS 48; BP_DIAS 49
[2020-02-02] MEDS: LACTATED RINGERS 1,000 ML IV SCH (20:54)
[2020-02-02] MEDS: DOCUSATE SODIUM 100 MG (COLACE) CAP PO SCH (20:54)
[2020-02-02] MEDS: SENNOSIDES 8.6 MG (SENOKOT) TAB PO SCH (20:54)
[2020-02-02] MEDS: RT-ALBUTEROL/IPRATROPIUM 3 ML (DUONEB) VIAL INH SCH ×2 (21:32→21:33)
[2020-02-03] VITALS (11 sets, daily range): BP systolic 91–110; BP diastolic 48–60
[2020-02-03] MEDS: LACTATED RINGERS 1,000 ML IV SCH ×3 (05:04→21:12)
[2020-02-03 05:26] LABS: BASOPHILS % (AUTO) 0 % (0-10); MEAN CORPUSCULAR VOLUME 82 fL (80-99)
[2020-02-03 05:28] LABS: EOSINOPHILS % (AUTO) 0 % (0-10); HEMATOCRIT 24 % (40-54); HEMOGLOBIN 8.4 g/dL (13.3-17.7); LYMPHOCYTES # (AUTO) 1.3 10^3/uL (1.0-4.0); LYMPHOCYTES % (AUTO) 11 % (12-44); MEAN CORPUSCULAR HEMOGLOBIN 29 pg (25-34); MEAN CORPUSCULAR HGB CONC 35 g/dL (32-36); MONOCYTES # (AUTO) 1.8 10^3/uL (0.0-1.0); MONOCYTES % (AUTO) 15 % (0-12); NEUTROPHILS # (AUTO) 8.4 10^3/uL (1.8-7.8); NEUTROPHILS % (AUTO) 73 % (42-75); WHITE BLOOD COUNT 11.6 10^3/uL (4.3-11.0)
[2020-02-03 05:34] LABS: PLATELET COUNT 17 10^3/uL (130-400)
[2020-02-03 05:46] LABS: ALBUMIN 2.2 GM/DL (3.2-4.5); CHLORIDE 107 MMOL/L (98-107); POTASSIUM 5.1 MMOL/L (3.6-5.0); SODIUM 135 MMOL/L (135-145)
--- NOTE | 2020-02-03 05:46 | NUR ---
Notified Dr. Flynn of following: - COVID PCR Results negative - received order to take pt out of isolation and move pt to 413 - Critical lab result - platelet = 17. No new orders for now, to be addressed in AM by Dr. Carlos. - HGB = 8.4; HCT = 24. Down from yesterday. No new orders for now, to be addressed in AM by Dr. Carlos. - Lab does not do the manual platelet that was ordered - to be addressed in AM by Dr. Carlos.
[2020-02-03 05:47] LABS: CALCIUM 7.9 MG/DL (8.5-10.1)
[2020-02-03 05:48] LABS: GLUCOSE 129 MG/DL (70-105); TOTAL PROTEIN 4.2 GM/DL (6.4-8.2)
[2020-02-03 05:49] LABS: CARBON DIOXIDE 21 MMOL/L (21-32)
[2020-02-03 05:50] LABS: BILIRUBIN,TOTAL 1.4 MG/DL (0.1-1.0)
[2020-02-03] MEDS: inSUlin ASPART (NovoLOG) 1 UNIT/0.01 ML (CHARGE PER UNIT) SC SCH ×4 (05:51→20:43)
[2020-02-03 05:52] LABS: ALKALINE PHOSPHATASE 66 U/L (40-136); CREATININE SERUM 0.75 MG/DL (0.60-1.30); GFR ESTIMATED > 60
[2020-02-03 05:53] LABS: BUN/CREATININE RATIO 65
[2020-02-03 05:55] LABS: ALANINE AMINOTRANSFERASE 32 U/L (0-55)
[2020-02-03] MEDS ORDERED: NS (IVPB) 0 ML ONE (06:01)
[2020-02-03] MEDS ORDERED: PIPERACILLIN/TAZO 4.5 GM VIAL (ZOSYN) IV ONE (06:01)
[2020-02-03] MEDS ORDERED: VANCOMYCIN INJECTION 0.1 MG in NS (IVPB) 250 ML IV SCH (07:30)
[2020-02-03] MEDS: RT-ALBUTEROL/IPRATROPIUM 3 ML (DUONEB) VIAL INH SCH ×2 (07:55→19:42)
--- NOTE | 2020-02-03 07:55 | NUR ---
PTD VANCOMYCIN: LABS 55.7 KG, SCr 0.75, CrCl 50.3, BMI 17.6 VANCOMYCIN LOADING DOSE 20MG/KG x 55.7 KG = 1114 ~ 1250MG 02/02 @ 0800. VANCOMYCIN MAINT DOSE 15MG/KG x 55.7 KG = 835 ~ 750MG Q24H STARTING 02/03 @ 0800. VANCOMYCIN TROUGH DUE 02/05 @ 0700. IF TROUGH >20, HOLD DOSE & NOTIFY PHARMACY FOR ADJUSTMENTS.
[2020-02-03] MEDS ORDERED: VANCOMYCIN 1250 MG/NS 250 ML IVPB IV NR ×2 (08:00)
--- NOTE | 2020-02-03 08:00 | Pulmonary Consultation ---
History of Present Illness History of Present Illness Date Seen by Provider: Feb 03, 2020 Time Seen by Provider: 07:55 Date of Admission Allergies and Home Medications Allergies Coded Allergies: NKANo Known Allergies (Verified Allergy, Unknown, 02/28/06) Home Medications Apixaban 5 Mg Tablet, 5 MG PO BID, (Reported) TAKE 2 TABLETS BID X 7 DAYS, THEN 1 TABLET BID Atorvastatin Calcium 40 Mg Tablet, 40 MG PO DAILY, (Reported) Docusate Sodium 100 Mg Cap, 100 MG PO BID Prescribed by: DEE PAGAN on 08/08/13 0836 Dronedarone HCl 400 Mg Tablet, 400 MG PO BID, (Reported) Famotidine 20 Mg Tablet, 20 MG PO BID, (Reported) Hydrocodone/Acetaminophen 1 Each Tablet, 1 TAB PO Q6H PRN for PAIN-MODERATE (5- 7) Prescribed by: VICTORINA ORTIZ on 12/24/19 0915 Metformin Hcl 500 Mg Tablet, 1 EACH PO BID WITH MEALS, (Reported) Metoprolol Tartrate 25 Mg Tablet, 12.5 MG PO BID Prescribed by: DEE PAGAN on 08/08/13 0836 Chapin-3/Dha/Epa/Fish Oil 1 Each Capsule.dr, 3 EACH PO DAILY, (Reported) Past Omdlipw-Gozcbq-Xgtasy Hx Past Med/Social Hx: Reviewed Nursing Past Med/Soc Hx Patient Social History Alcohol Use: Denies Use Recreational Drug Use: No Smoking Status: Former Smoker (QUIT AGE 58) Type Used: Cigarettes Recent Foreign Travel: No Contact w/Someone Who Travel: No Recent Infectious Disease Expo: No Recent Hopitalizations: No Immunizations Up To Date Tetanus Booster (TDap): Less than 5yrs Date of Pneumonia Vaccine: Nov 12, 2017 Date of Influenza Vaccine: Nov 12, 2018 Past Medical History Surgeries: Yes (BACK SX, AVR) Cardiac, Coronary Stent, Eye Surgery, Orthopedic, Vascular Surgery Respiratory: Yes (RIGHT PNEUMOTHORAX DUE TO RIB FRACTURES FROM A FALL) Cardiac: Yes (CAD/MD ) Coronary Artery Disease, Heart Attack, High Cholesterol, Hypertension, Peripheral Vascular, Valvular Heart Disease Neurological: No Genitourinary: No Gastrointestinal: Yes Diverticulosis, Polyps Musculoskeletal: Yes (RIGHT RIB FRACTURES) Degenerate Disk Disease, Back Injury, Chronic Back Pain Endocrine: Yes Diabetes, Non-Insulin dep HEENT: Yes Cataract Cancer: No Blood Disorders: No Adverse Reaction/Blood Tranf: No Family Medical History Cancer of colon G8 BROTHER (colon & bladder ca at age 63) G8 BROTHER (unknown ca at 65) Chest pain G8 SISTER (mi & htn) Family history: Cardiovascular disease 19 FATHER (68) G8 BROTHER History of - respiratory disease 19 MOTHER (complications from emphesma) SOCIAL HISTORY: -ETOH-DENIES USE -DRUGS-DENIES USE -SMOKED 1 PPD, QUIT AGE 58 PAST SURGICAL HISTORY: -04/30/19--LOOP RECORDER PLACED DUE TO PAROXYSMAL ATRIAL FIBRILLATION -RIGHT LEG BYPASS--RIGHT ILIAC TO COMMON FEMORAL TO POPLITEAL 2006 -CARDIAC CATH WITH RCA STENT 2006 -BACK SURGERY--L2-L3 FUSION -CATARACT SURGERY Review of Systems Time Seen by Provider: 07:55 Sepsis Event Evaluation Height, Weight, BMI Height: 5'10.00" Weight: 144lbs. 0.0oz. 65.025200fi; 18.09 BMI Method: Exam Exam Vital Signs Date Time Temp Pulse Resp B/P (MAP) Pulse Ox O2 Delivery O2 Flow Rate FiO2 02/03/20 05:07 36.5 86 20 99/60 (73) 94 Nasal Cannula 1.00 02/03/20 04:00 36.5 86 20 99/60 (73) 94 Nasal Cannula 1.00 02/03/20 01:00 90 02/03/20 00:53 36.4 87 20 102/48 (66) 96 Nasal Cannula 1.00 02/02/20 20:03 36.4 90 18 101/49 (66) 96 Nasal Cannula 1.00 02/02/20 20:00 94 Nasal Cannula 2.00 02/02/20 19:00 93 02/02/20 15:59 94 Nasal Cannula 2.00 02/02/20 15:53 36.0 68 18 120/65 97 Nasal Cannula 2.00 2.00 02/02/20 12:51 36.0 68 97 28 02/02/20 12:44 36.0 68 18 120/65 97 Nasal Cannula 2.00 02/02/20 11:56 96 20 106/65 95 Nasal Cannula 2.00 02/02/20 08:29 36.9 83 20 130/58 (82) 93 Room Air I & O 02/03/20 07:00 Intake Total 3240 ml Output Total 325 ml Balance 2915 ml Height & Weight Height: 5'10.00" Weight: 144lbs. 0.0oz. 65.326010eo; 18.09 BMI Method: General Appearance: Chronically ill, Cachetic HEENT: PERRL/EOMI, Other (dry mucous membrandes) Neck: Normal Inspection, Supple Respiratory: Lungs Clear, No Respiratory Distress, Decreased Breath Sounds Cardiovascular: Regular Rate, Rhythm, No Edema, No Murmur Capillary Refill: Less Than 3 Seconds Extremity: Normal Inspection, Non Tender, No Pedal Edema Neurologic/Psychiatric: Alert, Normal Mood/Affect, Disoriented Skin: Normal Color, Warm/Dry Results Lab Laboratory Tests 02/02/20 08:51 02/03/20 05:08 Assessment/Plan Assessment/Plan Severe sepsis Pneumonia -Quinones cultures pending - Rocephin and Azithromycin IV fluids COVID KRISTY negative, PCR pending Lung nodule right lower lobe infiltrate, 11 mm nodule -Will have pt f.u with me as out pt. Thrombocytopenia -Check DIC and HIT abx -Transfuse 1 unit of PRBC and Platlets secondary to dropping Hb, Hypertension, and thrombocytopenia -oncology is consulted Hypotension -Monitor -Tele Microcytic anemia DVT Prophylaxis: held due to thrombocytopenia SHELLI ORTIZ DO Feb 03, 2020 08:00
[2020-02-03 08:28] LABS: PHOSPHORUS 4.1 MG/DL (2.3-4.7)
[2020-02-03 08:52] LABS: FIBRIN DEGRADATION PRODUCTS 0.73 UG/ML (0.00-0.49); INR 1.3 (0.8-1.4); PROTHROMBIN TIME PATIENT 16.4 SEC (12.2-14.7)
[2020-02-03] MEDS: AZITHROMYCIN 500 MG/NS 250 ML IVPB IV SCH ×2 (09:37)
[2020-02-03] MEDS: cefTRIAXone 1,000 MG/SWFI 10 ML IV PUSH IV SCH ×2 (09:38)
[2020-02-03] MEDS: SENNOSIDES 8.6 MG (SENOKOT) TAB PO SCH ×2 (09:38→21:12)
[2020-02-03] MEDS: DOCUSATE SODIUM 100 MG (COLACE) CAP PO SCH ×2 (09:39→21:12)
[2020-02-03] MEDS ORDERED: NS IV 500 ML 500 ML ONE (11:18)
--- NOTE | 2020-02-03 12:54 | Progress Note - Hospitalist ---
Subjective HPI/CC On Admission Date Seen by Provider: Feb 03, 2020 Time Seen by Provider: 10:00 Lucio Quintero is a 74 year old male with PMH HTN, HLD, CAD, GERD, T2DM, chronic back pain, who presented with dehydration. He is a poor historian. He reportedly had dark urine. He has lost some weight recently. He denies any fevers or c hills. He denies shortness of breath and cough. He denies chest pain. He denies abdominal pain. He denies nausea and vomiting. He denies dysuria. He denies any rash. He denies bleeding. He denies hematochezia and melena. He denies any history of low platelets. Subjective/Events-last exam He is feeling better. He denies fevers. He denies trouble breathing. He denies cough. He denies pain. He denies bleeding. He denies rash. Focused Exam Lactate Level 02/02/20 11:50: Lactic Acid Level 1.02 Objective Exam Vital Signs Vital Signs Date Time Temp Pulse Resp B/P (MAP) Pulse Ox O2 Delivery O2 Flow Rate FiO2 02/03/20 12:00 36.2 92 20 91/54 (66) 94 Nasal Cannula 1.00 02/02/20 12:51 28 Capillary Refill : Less Than 3 SecondsLess Than 3 Seconds General Appearance: No Apparent Distress, WD/WN Respiratory: Lungs Clear, Normal Breath Sounds, No Respiratory Distress Cardiovascular: Regular Rate, Rhythm, No Edema, No Murmur Gastrointestinal: Normal Bowel Sounds, Non Tender, Soft Extremity: Normal Inspection, Non Tender, No Pedal Edema Neurologic/Psychiatric: Alert, Oriented x3, No Motor/Sensory Deficits, Normal Mood/Affect Skin: Normal Color, Warm/Dry Results/Procedures Lab Laboratory Tests 02/03/20 05:08 Patient resulted labs reviewed. Imaging: Reviewed Imaging Report Assessment/Plan Assessment and Plan Assess & Plan/Chief Complaint Severe sepsis Pneumonia Staph bacteremia Lung nodule Blood cultures positive, gram positive cocci Continue Rocephin and Azithromycin Add Vancomycin COVID KRISTY and PCR negative Azotemia Improving IV fluids Thrombocytopenia Anemia Likely due to acute infection Platelets 17, stable, previously >200 Platelet transfusion ordered Hgb 8, down from 10, previously >12 DIC panel negative FATEMEH antibody pending Check fecal occult blood Iron and folate pending DVT Prophylaxis: held due to thrombocytopenia Diagnosis/Problems Diagnosis/Problems (1) Severe sepsis Status: Acute (2) PNA (pneumonia) Status: Acute (3) Lung nodule Status: Acute (4) Azotemia Status: Acute (5) Microcytic anemia Status: Acute (6) Thrombocytopenia Status: Acute (7) BMI less than 19,adult Status: Acute Clinical Quality Measures DVT/VTE Risk/Contraindication: Risk Factor Score Per Nursin RFS Level Per Nursing on Admit: 4+=Very High Contraindications-Pharm: Other *list below* Other: Thrombocytopenia BEVERLY PEÑA MD Feb 03, 2020 12:54
[2020-02-03 12:58] LABS: BASOPHILS % (AUTO) 0 % (0-10); EOSINOPHILS % (AUTO) 0 % (0-10)
[2020-02-03 13:00] LABS: HEMATOCRIT 23 % (40-54); LYMPHOCYTES # (AUTO) 1.4 10^3/uL (1.0-4.0); LYMPHOCYTES % (AUTO) 9 % (12-44); MEAN CORPUSCULAR HEMOGLOBIN 29 pg (25-34); MEAN CORPUSCULAR HGB CONC 35 g/dL (32-36); MEAN CORPUSCULAR VOLUME 82 fL (80-99); MONOCYTES # (AUTO) 1.9 10^3/uL (0.0-1.0); MONOCYTES % (AUTO) 12 % (0-12); NEUTROPHILS # (AUTO) 11.7 10^3/uL (1.8-7.8); NEUTROPHILS % (AUTO) 77 % (42-75); WHITE BLOOD COUNT 15.2 10^3/uL (4.3-11.0)
[2020-02-03 13:03] LABS: PLATELET COUNT 32 10^3/uL (130-400)
[2020-02-03 13:18] LABS: ALANINE AMINOTRANSFERASE 34 U/L (0-55); ALBUMIN 2.1 GM/DL (3.2-4.5); ALKALINE PHOSPHATASE 66 U/L (40-136); BILIRUBIN,TOTAL 1.3 MG/DL (0.1-1.0); BUN/CREATININE RATIO 61; CALCIUM 7.6 MG/DL (8.5-10.1); CARBON DIOXIDE 23 MMOL/L (21-32); CHLORIDE 107 MMOL/L (98-107); GFR ESTIMATED > 60; GLUCOSE 113 MG/DL (70-105); POTASSIUM 4.6 MMOL/L (3.6-5.0); SODIUM 135 MMOL/L (135-145); TOTAL PROTEIN 4.3 GM/DL (6.4-8.2)
--- NOTE | 2020-02-03 13:49 | NUR ---
RD ASSESSMENT PMHx: HTN; CAD; HLD; GERD; diverticulosis; PT INTERACTION: Pt was awake and pleasant during nutrition consult for MST score. Note pt is a poor historian, per chart review. Pt states current appetite is okay. Note avg PO intake 50% x2meal, per chart review. Pt states following a regular diet at home, and has no issues with chewing/swallowing food. Pt states no recent issues with nausea, vomiting, constipation or diarrhea, and that his last BM was "3-4 days ago." Note pt currently on bowel regimen of colace BID, and senna BID, per chart review. Pt states unsure of recent wt changes. Note recent 25# wt loss x1mon, per chart review. This is significant wt loss at 17%. Pt states current DM management is pretty good. Note unable to determine recent HbA1c, per chart review. Upon visual assessment, note pt had covered most of his body, but from looking at his temporal and facial regions, there was not any visible signs of muscle/fat wasting. Note pt has BMI of 17.6 (Underweight BMI for age). Given wt hx, PO intake, and visual assessment, pt meets criteria for malnutrition per ASPEN guidelines. ABNORMAL NUTRITION-RELATED LAB VALUES LOW: Ca 7.9; Pro 4.2; alb 2.2; HIGH: K 5.1; BUN 49; glu 129; bili 1.4; Est. kcal needs: 8826-3595 kcal | 30-35 kcal/kg Est. Pro needs: 56-67 g Pro | 1.0-1.2 g Pro/kg PES STATEMENT: Inadequate oral intake (NI-2.1) related to loss of appetite, and constipation, as evidenced by pt interview, and avg PO intake 50% x2meal. Acute disease or condition-related malnutrition (undernutrition) (NC-4.1.3) related to inadequate oral intake as evidenced by pt interview, decreased appetite, 25# wt loss x1mon, and visual assessment. INTERVENTION: Continue with current diet order of Clear Liquid diet. PT may benefit from diet advancement, when medically able and as tolerated. Would not recommend supplementation d/t pt's current diet order. Note pt is a diabetic and Ensure Clear is very high in CHO. Encouraged pt to eat when able. Offered diet education on DM management, but pt declined at this time. May attempt to offer again prior to discharge. Will continue to follow and reassess as pt needs, intake, and status change. Calli YING, MS RD LD [phone] cell
[2020-02-03] MEDS: LATANOPROST 0.005% (XALATAN) OPHTH SOLN 2.5 ML OU SCH (21:12)
[2020-02-04 04:07] VITALS: BP 111/55
[2020-02-04 04:53] LABS: BASOPHILS % (AUTO) 0 % (0-10); EOSINOPHILS % (AUTO) 0 % (0-10)
[2020-02-04 04:55] LABS: HEMATOCRIT 22 % (40-54); HEMOGLOBIN 7.9 g/dL (13.3-17.7); LYMPHOCYTES # (AUTO) 1.6 10^3/uL (1.0-4.0); LYMPHOCYTES % (AUTO) 10 % (12-44); MEAN CORPUSCULAR HEMOGLOBIN 29 pg (25-34); MEAN CORPUSCULAR HGB CONC 36 g/dL (32-36); MEAN CORPUSCULAR VOLUME 81 fL (80-99); MONOCYTES % (AUTO) 13 % (0-12); NEUTROPHILS # (AUTO) 11.5 10^3/uL (1.8-7.8); NEUTROPHILS % (AUTO) 75 % (42-75); WHITE BLOOD COUNT 15.3 10^3/uL (4.3-11.0)
[2020-02-04 05:10] LABS: ALBUMIN 2.1 GM/DL (3.2-4.5); CHLORIDE 108 MMOL/L (98-107); POTASSIUM 4.9 MMOL/L (3.6-5.0); SODIUM 137 MMOL/L (135-145)
[2020-02-04 05:11] LABS: CALCIUM 7.9 MG/DL (8.5-10.1)
[2020-02-04 05:12] LABS: GLUCOSE 119 MG/DL (70-105); TOTAL PROTEIN 4.2 GM/DL (6.4-8.2)
[2020-02-04 05:13] LABS: CARBON DIOXIDE 22 MMOL/L (21-32)
[2020-02-04 05:14] LABS: BILIRUBIN,TOTAL 1.5 MG/DL (0.1-1.0)
[2020-02-04 05:16] LABS: ALKALINE PHOSPHATASE 72 U/L (40-136); CREATININE SERUM 0.68 MG/DL (0.60-1.30); GFR ESTIMATED > 60
[2020-02-04 05:17] LABS: BUN/CREATININE RATIO 53
[2020-02-04 05:19] LABS: ALANINE AMINOTRANSFERASE 30 U/L (0-55); PLATELET COUNT 37 10^3/uL (130-400)
[2020-02-04] MEDS: LACTATED RINGERS 1,000 ML IV SCH ×3 (05:24→23:04)
[2020-02-04] MEDS: inSUlin ASPART (NovoLOG) 1 UNIT/0.01 ML (CHARGE PER UNIT) SC SCH ×4 (05:54→20:01)
[2020-02-04] MEDS: RT-ALBUTEROL/IPRATROPIUM 3 ML (DUONEB) VIAL INH SCH ×2 (07:15→18:33)
[2020-02-04] MEDS: VANCOMYCIN 750 MG/NS 250 ML IVPB IV SCH ×2 (07:59)
[2020-02-04 08:00] VITALS: BP 123/58
[2020-02-04] MEDS: DOCUSATE SODIUM 100 MG (COLACE) CAP PO SCH ×2 (08:00→20:06)
[2020-02-04] MEDS: AZITHROMYCIN 500 MG/NS 250 ML IVPB IV SCH ×2 (08:00)
[2020-02-04] MEDS: cefTRIAXone 1,000 MG/SWFI 10 ML IV PUSH IV SCH ×2 (08:00)
[2020-02-04] MEDS: SENNOSIDES 8.6 MG (SENOKOT) TAB PO SCH ×2 (09:34→20:06)
--- NOTE | 2020-02-04 11:34 | Progress Note - Hospitalist ---
Subjective HPI/CC On Admission Date Seen by Provider: Feb 04, 2020 Time Seen by Provider: 09:55 Lucio Quintero is a 74 year old male with PMH HTN, HLD, CAD, GERD, T2DM, chronic back pain, who presented with dehydration. He is a poor historian. He reportedly had dark urine. He has lost some weight recently. He denies any fevers or c hills. He denies shortness of breath and cough. He denies chest pain. He denies abdominal pain. He denies nausea and vomiting. He denies dysuria. He denies any rash. He denies bleeding. He denies hematochezia and melena. He denies any history of low platelets. Subjective/Events-last exam he is sitting in his bedside chair. He denies any fevers. He denies any shortness of breath. He denies any cough. He has been eating and drinking. He would like a regular diet. Focused Exam Lactate Level 02/02/20 11:50: Lactic Acid Level 1.02 Objective Exam Vital Signs Vital Signs Date Time Temp Pulse Resp B/P (MAP) Pulse Ox O2 Delivery O2 Flow Rate FiO2 02/04/20 08:00 Nasal Cannula 2.00 02/04/20 08:00 34.8 100 18 123/58 (79) 92 02/02/20 12:51 28 Capillary Refill : Less Than 3 SecondsLess Than 3 Seconds General Appearance: No Apparent Distress, Thin Respiratory: Lungs Clear, Normal Breath Sounds, No Respiratory Distress Cardiovascular: Regular Rate, Rhythm, No Edema, No Murmur Gastrointestinal: Normal Bowel Sounds, Non Tender, Soft Extremity: Normal Inspection, Non Tender, No Pedal Edema Neurologic/Psychiatric: Alert, Oriented x3, No Motor/Sensory Deficits, Normal Mood/Affect Skin: Normal Color, Warm/Dry Results/Procedures Lab Laboratory Tests 02/03/20 12:52 02/04/20 04:35 Patient resulted labs reviewed. Imaging: Reviewed Imaging Report Assessment/Plan Assessment and Plan Assess & Plan/Chief Complaint Severe sepsis Pneumonia Staph bacteremia Lung nodule Blood culture positive for Staph lugdunensis Continue Vancomycin, Rocephin, and Azithromycin COVID KRISTY and PCR negative Azotemia Improving IV fluids Thrombocytopenia Anemia Likely due to acute infection Platelets 37, improving, previously >200 Platelet transfusion 02/02 Hgb 7.9, appears to be stabilizing, previously >12 DIC panel negative FATEMEH antibody pending Check fecal occult blood Iron low, folate normal T bili and LDH elevated, haptoglobin pending DVT Prophylaxis: held due to thrombocytopenia Diagnosis/Problems Diagnosis/Problems (1) Severe sepsis Status: Acute (2) PNA (pneumonia) Status: Acute (3) Lung nodule Status: Acute (4) Azotemia Status: Acute (5) Microcytic anemia Status: Acute (6) Thrombocytopenia Status: Acute (7) BMI less than 19,adult Status: Acute Clinical Quality Measures DVT/VTE Risk/Contraindication: Risk Factor Score Per Nursin RFS Level Per Nursing on Admit: 4+=Very High Contraindications-Pharm: Other *list below* Other: Thrombocytopenia BEVERLY PEÑA MD Feb 04, 2020 11:34
[2020-02-04 12:00] VITALS: BP 106/51
--- NOTE | 2020-02-04 15:32 | Occupational Therapy Eval ---
OT Evaluation-General/PLF Medical Diagnosis Admission Date Feb 02, 2020 at 10:30 Medical Diagnosis: R side pneumonia, hypoxia Onset Date: Feb 02, 2020 Therapy Diagnosis Therapy Diagnosis: decreased ADL status Height/Weight Height (Feet): 5 Height (Inches): 10.00 Weight (Pounds): 144 Weight (Ounces): 0.0 Precautions Precautions/Isolations: Airborne Isolation, Contact Isolation, Droplet Isolation Referral Physician: Terrance Referral Reason: Evaluation/Treatment Medical History Additional Medical History HTN, HLD, CAD, GERD, DM, chronic back pain, coronary stent Current History ER due to back pain Social History Home: Single Level Current Living Status: Spouse Entry Into Home: Level Entry ADL-Prior Level of Function SCALE: Activities may be completed with or without assistive devices. 2-Pbdqdnewnb-kbeylqk completes the activity by him/herself with no assistance from a helper. 5-Set-up or Clean-up Assistance-helper sets up or cleans up; patient completes activity. [place] assists only prior to or following the activity. 4-Supervision or Touching Assistance-helper provides verbal cues and/or touching/steadying and/or contact guard assistance as patient completes activi ty. Assistance may be provided throughout the activity or intermittently. 3-Partial/Moderate Assistance-helper does LESS THAN HALF the effort. [place] lifts, holds or supports trunk or limbs, but provides less than half the effort. 2-Substantial/Maximal Assistance-helper does MORE THAN HALF the effort. [place] lifts or holds trunk or limbs and provides more than half the effort. 2-Igbpeozjv-eevilm does ALL the effort. Patient does none of the effort to complete the activity. Or, the assistance of 2 or more helpers is required for the patient to complete the activity. If activity was not attempted, code reason: 7-Patient Refused. 9-Not Applicable-not attempted and the patient did not perform the activity before the current illness, exacerbation or injury. 10-Not Attempted due to Environmental Limitations-(lack of equipment, weather restraints, etc.). 88-Not Attempted due to Medical Conditions or Safety Concerns. ADL PLOF Comments Pt reports being independent with bathing and dressing at PLOF, his completes the cooking and cleaning. Pt was independent with functional mobility without AD up until a few days ago, then he began using a cane. Self Care: Independent Functional Cognition: Independent DME/Equipment: Tub/Shower OT Current Status Subjective pt seated in recliner, slouched down in chair. Pt agreeable to OT evaluation. Mental Status/Objective Patient Orientation: Person, Situation Attachments: IV Current Glasses/Contacts: Yes Hearing Aids: Yes Dentures/Partials: No Hand Dominance: Right Upper Extremity ROM WFL, BUE shoulder flexion to approx 100 degrees Upper Extremity Coordination WFL Upper Extremity Sensation Pt denies tingling/numbness ADL-Treatment Eating (QC): 5 (Per pt report, he required set up assistance with lunch) On/Off Footwear (QC): 3 (Pt able to doff/don gripper socks, required assistance with minor adjustments.) Other Treatments OT educated pt on purpose and benefit of OT, he verbalized understanding. Pt provided information about PLOF and home set up and participated in UE screen. Pt completed footwear, requiring assist with adjusting toes of socks. Pt had slid down in chair, OT put down footrest, then pt able to scoot buttocks back into chair. Pt then stood from chair, CGA. Pt held onto tray table as he stood, standing ~10 seconds before sitting back in seat. OT educated pt on OT POC while he is admitted to the hospital, focus on increasing BUE strength and endurance, increasing independence with ADLs and functional mobility, he verbalized agree ment. Post tx, pt seated in recliner, call light in reach and all needs met. Education OT Patient Education: Correct positioning, Modified ADL techniques, Progress toward Goal/Update tx plan, Purpose of tx/functional activities, Rehab process Teaching Recipient: Patient Teaching Methods: Discussion Response to Teaching: Verbalize Understanding, Reinforcement Needed OT Supervisor Rubber Covering Goals Prison Goals Time Frame: Feb 13, 2020 Eating (QC): 6 Oral Hygiene (QC): 6 Toileting Hygiene (QC): 6 Shower/Bathe Self (QC): 6 Upper Body Dressing (QC): 6 Lower Body Dressing (QC): 6 On/Off Footwear (QC): 6 1=Demonstrate adherence to instructed precautions during ADL tasks. 2=Patient will verbalize/demonstrate understanding of assistive devices/modifications for ADL. 3=Patient will improve strength/tolerance for activity to enable patient to perform ADL's. OT Education/Plan Problem List/Assessment Assessment: Decreased Activ Tolerance, Decreased UE Strength, Impaired Funct Balance, Impaired I ADL's, Impaired Self-Care Skills Discharge Recommendations Plan/Recommendations: Continue POC Treatment Plan/Plan of Care Patient would benefit from OT for education, treatment and training to promote independence in ADL's, mobility, safety and/or upper extremity function for ADL's. Plan of Care: ADL Retraining, Functional Mobility, UE Funct Exercise/Act Treatment Duration: Feb 13, 2020 Frequency: 5 times per week Estimated Hrs Per Day: .25 hour per day Agreement: Yes Rehab Potential: Fair Time/GCodes Start Time: 15:00 Stop Time: 15:10 Total Time Billed (hr/min): 10 Billed Treatment Time 1, SHALA VOSS OT Feb 04, 2020 15:32
--- NOTE | 2020-02-04 15:43 | Physical Therapy Evaluation ---
PT Evaluation-General Medical Diagnosis Admission Date Feb 02, 2020 at 10:30 Medical Diagnosis: R side pneumonia, hypoxia Onset Date: Feb 02, 2020 Therapy Diagnosis Therapy Diagnosis: Weakness/debility Height/Weight Height (Feet): 5 Height (Inches): 10.00 Weight (Pounds): 144 Weight (Ounces): 0.0 Precautions Precautions/Isolations: Airborne Isolation, Contact Isolation, Droplet Iso lation Weight Bear Status Right Lower Extremity: Right Weight Bearing/Tolerated Left Lower Extremity: Left Weight Bearing/Tolerated Referral Physician: Terrance Reason for Referral: Evaluation/Treatment Medical History Pertinent Medical History: CAD, GERD, HTN Current History Pt admitted from ED via personal vehicle secondary to c/o LBP and weight loss Social History Home: Single Level Current Living Status: Spouse Entry Into Home: Stairs With Railing (2) Prior Prior Level of Function SCALE: Activities may be completed with or without assistive devices. 2-Udvctpmfge-qttyugz completes the activity by him/herself with no assistance from a helper. 5-Set-up or Clean-up Assistance-helper sets up or cleans up; patient completes activity. [place] assists only prior to or following the activity. 4-Supervision or Touching Assistance-helper provides verbal cues and/or touching/steadying and/or contact guard assistance as patient completes activity. Assistance may be provided throughout the activity or intermittently. 3-Partial/Moderate Assistance-helper does LESS THAN HALF the effort. [place] lifts, holds or supports trunk or limbs, but provides less than half the effort. 2-Substantial/Maximal Assistance-helper does MORE THAN HALF the effort. [place] lifts or holds trunk or limbs and provides more than half the effort. 5-Zfxwrnbhr-vxorcj does ALL the effort. Patient does none of the effort to complete the activity. Or, the assistance of 2 or more helpers is required for the patient to complete the activity. If activity was not attempted, code reason: 7-Patient Refused. 9-Not Applicable-not attempted and the patient did not perform the activity before the current illness, exacerbation or injury. 10-Not Attempted due to Environmental Limitations-(lack of equipment, weather restraints, etc.). 88-Not Attempted due to Medical Conditions or Safety Concerns. Bed Mobility: 6 Transfers (B,C,W/C): 6 Gait: 6 Stairs: 6 Indoor Mobility (Ambulation): Independent Prior Device Use: single point cane PT Evaluation-Current Subjective Pt presents sitting up in recliner with legs elevated, pt agreeable to PT evaluation. Pt denies back pain at this time. Pt/Family Goals Return home Objective Patient Orientation: Person, Confused, Place Attachments: Oxygen, IV ROM/Strength ROM Lower Extremities WFL Strength Lower Extremities 3/5 hip flexion 3+/5 knee extension 4/5 ankle DF Integumentary/Posture Integumentary refer to nursing notes Sensory Hand Dominance: Right Sensation Lower Extremities WFL Transfers Sit to Stand (QC): 4 Gait Does the Patient Walk?: Yes Mode of Locomotion: Walk Anticipated Mode of Locomotion: Walk Walk 10 feet (QC): 4 Distance: 40' Gait Assistive Device: FWW Comments/Gait Description Pt ambulates with upright posture, slow, steady gait. No LOB noted; however, pt extremely fatigued following gait, throwing his body backwards into chair. Balance Sitting Static: Normal Sitting Dynamic: Normal Standing Static: Normal Standing Dynamic: Normal Assessment/Needs Pt has problem list including decreased strength, decreased activity tolerance, increased pain which impact his overall functional mobility. Pt would benefit from skilled PT to address above mentioned problems to ensure safety upon discharge from hospital. Rehab Potential: Good PT Short Term Goals Short Term Goals Time Frame: Feb 18, 2020 Sit to stand: 6 Walk 50 feet with two turns: 6 Walk 150 feet: 4 1 step (curb): 4 PT Plan Problem List Problem List: Activity Tolerance, Functional Strength, Safety, Balance, Gait, Transfer, Bed Mobility, ROM Treatment/Plan Treatment Plan: Continue Plan of Care Treatment Plan: Bed Mobility, Education, Functional Activity Gerard, Functional Strength, Gait, Safety, Therapeutic Exercise, Transfers Treatment Duration: Feb 18, 2020 Frequency: 6 times per week Estimated Hrs Per Day: .25 hour per day Patient and/or Family Agrees t: Yes Time/GCodes Time In: 1510 Time Out: 1520 Total Billed Treatment 1 EVM (10') RONA DOOLEY PT Feb 04, 2020 15:43
[2020-02-04 16:28] VITALS: BP 132/63
--- NOTE | 2020-02-04 16:54 | Physician Query Clarification ---
"Physician Query-General Query to Physician: The medical record reflects the following clinical scenario: History/Risk factors: Chronic illness/pain, Sepsis, pneumonia Clinical Findings: Wt 67 Kg 12/24/19, Wt 56.1 02/04/20 >10 Kg loss recently, BMI 17.7, Albumin 2.1, T protein 4.2, weakness, Treatment: Nutritional monitoring, Advancing Diet, Dietary consult Question: What condition best reflects the above clinical scenario? Please document response in the Progress notes or Discharge Summary. 1. Severe Protein/Calorie Malnutrition 2. Moderate Protein/Calorie Malnutrition 3. Malnutrition (As currently documented by ER Physician Opal Johnson) 4. Other , with explanation of the clinical findings 5. Clinically undetermined, no explanation for the clinical findings Please remember a lack of response to the above will prompt a phone page by CDI/coding staff In responding to this query, please exercise your independent professional judgment. The purpose of this communication is to more accurately reflect the complexity of your patients condition. The fact that a question is asked does not imply that any particular answer is desired or expected. Thank you for timely response to this clarification. Jasmin Villalta, MSN, RN RN Specialist-Clinical Doc Improvement CD -Health Info Mgmt Operations [address] [facility] t: [phone] | f: [phone] If you are unable to reach me at my extension, I may be working from home. Please contact me at [phone] PHYSICIAN RESPONSE: Based on the clinical findings in the record, please respond to the query above on this document as an addendum. Physician Response: Physician Response 1 If you have questions please contact: Thread Roller: Ext: Thank you for your time and cooperation. Clinical Jukebox Operator/Thread Roller This is a permanent part of the medical record JASMIN VILLALTA Feb 04, 2020 16:54 BEVERLY PEÑA MD Feb 04, 2020 17:18"
[2020-02-04 20:01] VITALS: BP 136/63
[2020-02-04] MEDS: LATANOPROST 0.005% (XALATAN) OPHTH SOLN 2.5 ML OU SCH (20:06)
[2020-02-05] VITALS (7 sets, daily range): BP systolic 115–135; BP diastolic 49–63
[2020-02-05 05:47] LABS: BASOPHILS % (AUTO) 0 % (0-10); EOSINOPHILS # (AUTO) 0.1 10^3/uL (0.0-0.3); EOSINOPHILS % (AUTO) 0 % (0-10); HEMATOCRIT 22 % (40-54); HEMOGLOBIN 7.4 g/dL (13.3-17.7); LYMPHOCYTES # (AUTO) 2.1 10^3/uL (1.0-4.0); LYMPHOCYTES % (AUTO) 13 % (12-44); MEAN CORPUSCULAR HEMOGLOBIN 28 pg (25-34); MEAN CORPUSCULAR HGB CONC 34 g/dL (32-36); MEAN CORPUSCULAR VOLUME 83 fL (80-99); MEAN PLATELET VOLUME 12.2 fL (9.0-12.2); MONOCYTES # (AUTO) 1.3 10^3/uL (0.0-1.0); MONOCYTES % (AUTO) 8 % (0-12); NEUTROPHILS # (AUTO) 12.6 10^3/uL (1.8-7.8); NEUTROPHILS % (AUTO) 78 % (42-75); PLATELET COUNT 54 10^3/uL (130-400); WHITE BLOOD COUNT 16.3 10^3/uL (4.3-11.0)
[2020-02-05 06:08] LABS: ALANINE AMINOTRANSFERASE 23 U/L (0-55); ALBUMIN 2.1 GM/DL (3.2-4.5); ALKALINE PHOSPHATASE 80 U/L (40-136); BILIRUBIN,TOTAL 1.6 MG/DL (0.1-1.0); BUN/CREATININE RATIO 40; CALCIUM 7.8 MG/DL (8.5-10.1); CARBON DIOXIDE 23 MMOL/L (21-32); CHLORIDE 107 MMOL/L (98-107); CREATININE SERUM 0.62 MG/DL (0.60-1.30); GFR ESTIMATED > 60; GLUCOSE 117 MG/DL (70-105); POTASSIUM 4.2 MMOL/L (3.6-5.0); SODIUM 135 MMOL/L (135-145); TOTAL PROTEIN 4.5 GM/DL (6.4-8.2)
[2020-02-05] MEDS: inSUlin ASPART (NovoLOG) 1 UNIT/0.01 ML (CHARGE PER UNIT) SC SCH ×4 (06:13→21:57)
[2020-02-05] MEDS: LACTATED RINGERS 1,000 ML IV SCH ×4 (06:36→21:58)
[2020-02-05] MEDS: VANCOMYCIN 750 MG/NS 250 ML IVPB IV SCH ×2 (09:21)
[2020-02-05] MEDS: DOCUSATE SODIUM 100 MG (COLACE) CAP PO SCH ×2 (09:23→21:57)
[2020-02-05] MEDS: cefTRIAXone 1,000 MG/SWFI 10 ML IV PUSH IV SCH ×2 (09:23)
[2020-02-05] MEDS: SENNOSIDES 8.6 MG (SENOKOT) TAB PO SCH ×2 (09:23→21:57)
[2020-02-05] MEDS: AZITHROMYCIN 500 MG/NS 250 ML IVPB IV SCH ×2 (09:33)
--- NOTE | 2020-02-05 10:42 | Physical Therapy Daily Note ---
PT Daily Note-Current Subjective Patient in bed pre tx, agrees to PT, has no complaints of pain. Appearance Patient in bed post tx with nurse call, phone, tray, all needs met. Mental Status Patient Orientation: Person, Place, Situation Attachments: Oxygen, IV Transfers SCALE: Activities may be completed with or without assistive devices. 9-Ladoiqrvnk-qteyjja completes the activity by him/herself with no assistance from a helper. 5-Set-up or Clean-up Assistance-helper sets up or cleans up; patient completes activity. [place] assists only prior to or following the activity. 4-Supervision or Touching Assistance-helper provides verbal cues and/or touching/steadying and/or contact guard assistance as patient completes activity. Assistance may be provided throughout the activity or intermittently. 3-Partial/Moderate Assistance-helper does LESS THAN HALF the effort. [place] lifts, holds or supports trunk or limbs, but provides less than half the effort. 2-Substantial/Maximal Assistance-helper does MORE THAN HALF the effort. [place] lifts or holds trunk or limbs and provides more than half the effort. 4-Tlswuufji-dowwlg does ALL the effort. Patient does none of the effort to complete the activity. Or, the assistance of 2 or more helpers is required for the patient to complete the activity. If activity was not attempted, code reason: 7-Patient Refused. 9-Not Applicable-not attempted and the patient did not perform the activity before the current illness, exacerbation or injury. 10-Not Attempted due to Environmental Limitations-(lack of equipment, weather restraints, etc.). 88-Not Attempted due to Medical Conditions or Safety Concerns. Roll Left & Right (QC): 6 Sit to Lying (QC): 3 Lying to Sitting/Side of Bed(Q: 3 Sit to Stand (QC): 4 Chair/Cue-xa-Ymsoo Xfer(QC): 4 Weight Bearing Right Lower Extremity: Right Weight Bearing/Tolerated Left Lower Extremity: Left Weight Bearing/Tolerated Gait Training Distance: 60' Walk 10 feet (QC): 4 Walk 50 ft with 2 Turns(QC): 4 Gait Persons Needed: 1 Gait Assistive Device: FWW slow but steady ambulation, CGA Exercises Supine Ex: Ankle pumps, Quad Set, Heel Slides Supine Reps: 20 Treatments bed mobility and transfers, ambulation, LE exercise Assessment Current Status: Fair Progress improved endurance PT Short Term Goals Short Term Goals Time Frame: Feb 18, 2020 Sit to stand: 6 Walk 50 feet with two turns: 6 Walk 150 feet: 4 1 step (curb): 4 PT Plan Problem List Problem List: Activity Tolerance, Functional Strength, Safety, Balance, Gait, Transfer, Bed Mobility, ROM Treatment/Plan Treatment Plan: Continue Plan of Care Treatment Plan: Bed Mobility, Education, Functional Activity Gerard, Functional Strength, Gait, Safety, Therapeutic Exercise, Transfers Treatment Duration: Feb 18, 2020 Frequency: 6 times per week Estimated Hrs Per Day: .25 hour per day Patient and/or Family Agrees t: Yes Safety Risks/Education Patient Education: Gait Training, Transfer Techniques, Correct Positioning, Safety Issues Teaching Recipient: Patient Teaching Methods: Demonstration, Discussion Response to Teaching: Reinforcement Needed Time/GCodes Time In: 1016 Time Out: 1032 Total Billed Treatment Time: 16 Total Billed Treatment 1 visit FA 16' DAVID HE PT Feb 05, 2020 10:42
--- NOTE | 2020-02-05 11:47 | Occupational Ther Daily Note ---
OT Current Status-Daily Note Subjective Pt alert, lying in bed. Pt agrees to therapy. No c/o pain only fatigue. Mental Status/Objective Patient Orientation: Person, Place, Time, Situation Attachments: IV ADL-Treatment Therapy Code Descriptions/Definitions Functional [place] Measure: 0=Not Assessed/NA 4=Minimal Assistance 1=Total Assistance 5=Supervision or Setup 2=Maximal Assistance 6=Modified [place] 3=Moderate Assistance 7=Complete IndependenceSCALE: Activities may be completed with or without assistive devices. 0-Arjguiqitq-zkqzcgn completes the activity by him/herself with no assistance from a helper. 5-Set-up or Clean-up Assistance-helper sets up or cleans up; patient completes activity. [place] assists only prior to or following the activity. 4-Supervision or Touching Assistance-helper provides verbal cues and/or touching/steadying and/or contact guard assistance as patient completes activity. Assistance may be provided throughout the activity or intermittently. 3-Partial/Moderate Assistance-helper does LESS THAN HALF the effort. [place] lifts, holds or supports trunk or limbs, but provides less than half the effort. 2-Substantial/Maximal Assistance-helper does MORE THAN HALF the effort. [place] lifts or holds trunk or limbs and provides more than half the effort. 4-Pbdwgekyr-qqrhjp does ALL the effort. Patient does none of the effort to complete the activity. Or, the assistance of 2 or more helpers is required for the patient to complete the activity. If activity was not attempted, code reason: 7-Patient Refused. 9-Not Applicable-not attempted and the patient did not perform the activity before the current illness, exacerbation or injury. 10-Not Attempted due to Environmental Limitations-(lack of equipment, weather restraints, etc.). 88-Not Attempted due to Medical Conditions or Safety Concerns. Other Treatment Skilled instructions for B UE exercises against gravity to increase strength and activity tolerance for daily functional tasks. Pt completed 2 sets 10 reps of shldr flexion, shldr protraction/retraction in horizontal plane and bicep curls. Pt fatigues quickly and completes exercises slowly due to decreased activity tolerance. After session, pt lying in bed with call light/phone in reach. All needs met in room. OT Intermediate Goals Mail Courier Goals Time Frame: Feb 13, 2020 Eating (QC): 6 Oral Hygiene (QC): 6 Toileting Hygiene (QC): 6 Shower/Bathe Self (QC): 6 Upper Body Dressing (QC): 6 Lower Body Dressing (QC): 6 On/Off Footwear (QC): 6 1=Demonstrate adherence to instructed precautions during ADL tasks. 2=Patient will verbalize/demonstrate understanding of assistive devices/modifications for ADL. 3=Patient will improve strength/tolerance for activity to enable patient to perform ADL's. OT Education/Plan Problem List/Assessment Assessment: Decreased Activ Tolerance, Decreased UE Strength Discharge Recommendations Plan/Recommendations: Continue POC Treatment Plan/Plan of Care Patient would benefit from OT for education, treatment and training to promote independence in ADL's, mobility, safety and/or upper extremity function for ADL's. Plan of Care: ADL Retraining, Functional Mobility, UE Funct Exercise/Act Treatment Duration: Feb 13, 2020 Frequency: 5 times per week Estimated Hrs Per Day: .25 hour per day Agreement: Yes Rehab Potential: Good Time/GCodes Start Time: 10:55 Stop Time: 11:10 Total Time Billed (hr/min): 15 Billed Treatment Time 1 visit-EX 1 (15 min) BEVERLY HANSON Feb 05, 2020 11:47
[2020-02-05] MEDS: RT-ALBUTEROL/IPRATROPIUM 3 ML (DUONEB) VIAL INH SCH (12:24)
--- NOTE | 2020-02-05 12:28 | NUR ---
CM/SS visited with patient for discharge planning. Plan: Patient will likely discharge early next week with home health. Home Health: The patient reports that he has never had home health before but would be willing to have it if it was needed at time of discharge. Home: The patient reports that he lives at home with his . They are both independent according to the patient. He feels that he is at a safe level to return home. Equipment: Walker and cane. Reports he has some other equipment at home that he had from his qwamee-ms-rdv. The patient does not wear oxygen at baseline. Supports: The patient's son lives 5 miles away and the daughter lives next door. He reports they will assist if needed. CM/SS will continue to follow.
--- NOTE | 2020-02-05 13:41 | Progress Note - Hospitalist ---
Subjective HPI/CC On Admission Date Seen by Provider: Feb 05, 2020 Time Seen by Provider: 09:50 Lucio Quintero is a 74 year old male with PMH HTN, HLD, CAD, GERD, T2DM, chronic back pain, who presented with dehydration. He is a poor historian. He reportedly had dark urine. He has lost some weight recently. He denies any fevers or c hills. He denies shortness of breath and cough. He denies chest pain. He denies abdominal pain. He denies nausea and vomiting. He denies dysuria. He denies any rash. He denies bleeding. He denies hematochezia and melena. He denies any history of low platelets. Subjective/Events-last exam He is feeling better. He is wondering about when he can go home. He denies fevers. He denies shortness of breath and cough. He has no other complaints. Objective Exam Vital Signs Vital Signs Date Time Temp Pulse Resp B/P (MAP) Pulse Ox O2 Delivery O2 Flow Rate FiO2 02/05/20 12:49 85 02/05/20 11:23 36.8 18 124/55 (78) 96 Nasal Cannula 2.00 02/02/20 12:51 28 Capillary Refill : Less Than 3 SecondsLess Than 3 Seconds General Appearance: No Apparent Distress, Thin Respiratory: Lungs Clear, Normal Breath Sounds, No Respiratory Distress Cardiovascular: Regular Rate, Rhythm, No Edema, No Murmur Gastrointestinal: Normal Bowel Sounds, Non Tender, Soft Extremity: Normal Inspection, Non Tender, No Pedal Edema Neurologic/Psychiatric: Alert, Oriented x3, No Motor/Sensory Deficits, Normal Mood/Affect Skin: Normal Color, Warm/Dry Results/Procedures Lab Laboratory Tests 02/05/20 05:38 Patient resulted labs reviewed. Imaging: Reviewed Imaging Report Assessment/Plan Assessment and Plan Assess & Plan/Chief Complaint Pneumonia Blood culture contaminated Lung nodule Blood culture positive for Staph lugdunensis, appears to be contaminant Continue Rocephin and Azithromycin COVID KRISTY and PCR negative Follow up with pulmonology for lung nodule Thrombocytopenia Anemia Secondary to acute infection vs hemolytic anemia Platelets 54, improving Platelet transfusion 02/02 Hgb 7.4, slowly trending downward Iron low, folate normal T bili and LDH elevated, haptoglobin low Check Thelma test DVT Prophylaxis: Lovenox Severe sepsis, resolved Azotemia, resolved Diagnosis/Problems Diagnosis/Problems (1) PNA (pneumonia) Status: Acute (2) Lung nodule Status: Acute (3) Microcytic anemia Status: Acute (4) Thrombocytopenia Status: Acute (5) Severe sepsis Status: Resolved Resolution Date/Time: 02/05/20 @ 13:44 (6) Azotemia Status: Resolved Resolution Date/Time: 02/05/20 @ 13:44 (7) BMI 20.0-20.9, adult Status: Acute Clinical Quality Measures DVT/VTE Risk/Contraindication: Risk Factor Score Per Nursin RFS Level Per Nursing on Admit: 4+=Very High Contraindications-Pharm: Other *list below* Other: Thrombocytopenia BEVERLY PEÑA MD Feb 05, 2020 13:41
[2020-02-05] MEDS: LATANOPROST 0.005% (XALATAN) OPHTH SOLN 2.5 ML OU SCH (21:58)
[2020-02-05] MEDS: MELATONIN 3 MG TABLET PO PRN (22:01)
[2020-02-06] MEDS: RT-ALBUTEROL/IPRATROPIUM 3 ML (DUONEB) VIAL INH SCH ×3 (00:20→22:25)
[2020-02-06 03:56] VITALS: BP 132/60
[2020-02-06] MEDS: LACTATED RINGERS 1,000 ML IV SCH (06:32)
[2020-02-06] MEDS: inSUlin ASPART (NovoLOG) 1 UNIT/0.01 ML (CHARGE PER UNIT) SC SCH ×4 (06:34→20:41)
[2020-02-06 06:58] LABS: BASOPHILS % (AUTO) 0 % (0-10); EOSINOPHILS # (AUTO) 0.1 10^3/uL (0.0-0.3); EOSINOPHILS % (AUTO) 0 % (0-10); LYMPHOCYTES # (AUTO) 2.4 10^3/uL (1.0-4.0); LYMPHOCYTES % (AUTO) 13 % (12-44); MEAN CORPUSCULAR HEMOGLOBIN 29 pg (25-34); MEAN CORPUSCULAR HGB CONC 34 g/dL (32-36); MEAN CORPUSCULAR VOLUME 85 fL (80-99); MEAN PLATELET VOLUME 12.1 fL (9.0-12.2); MONOCYTES # (AUTO) 1.2 10^3/uL (0.0-1.0); MONOCYTES % (AUTO) 7 % (0-12); NEUTROPHILS # (AUTO) 13.9 10^3/uL (1.8-7.8); NEUTROPHILS % (AUTO) 78 % (42-75); PLATELET COUNT 75 10^3/uL (130-400); WHITE BLOOD COUNT 17.8 10^3/uL (4.3-11.0)
[2020-02-06 07:00] LABS: HEMATOCRIT 20 % (40-54); HEMOGLOBIN 6.9 g/dL (13.3-17.7)
[2020-02-06] MEDS ORDERED: TROUGH ORDER-PHARMACY XX NR (07:00)
[2020-02-06] MEDS ORDERED: NS IV 500 ML 500 ML IV SCH (07:30)
[2020-02-06 07:57] LABS: CHLORIDE 106 MMOL/L (98-107); POTASSIUM 4.4 MMOL/L (3.6-5.0); SODIUM 134 MMOL/L (135-145)
[2020-02-06 07:58] LABS: CALCIUM 7.6 MG/DL (8.5-10.1)
[2020-02-06 07:59] LABS: GLUCOSE 139 MG/DL (70-105); TOTAL PROTEIN 4.3 GM/DL (6.4-8.2)
[2020-02-06 08:00] VITALS: BP 123/47
[2020-02-06 08:00] LABS: CARBON DIOXIDE 23 MMOL/L (21-32)
[2020-02-06 08:01] LABS: BILIRUBIN,TOTAL 1.4 MG/DL (0.1-1.0)
[2020-02-06 08:02] LABS: ALKALINE PHOSPHATASE 76 U/L (40-136)
[2020-02-06 08:03] LABS: CREATININE SERUM 0.61 MG/DL (0.60-1.30); GFR ESTIMATED > 60
[2020-02-06 08:04] LABS: BUN/CREATININE RATIO 30
[2020-02-06 08:06] LABS: ALANINE AMINOTRANSFERASE 21 U/L (0-55)
[2020-02-06 08:12] LABS: VANCOMYCIN,TROUGH 6.4 UG/ML (10.0-20.0)
--- NOTE | 2020-02-06 08:17 | NUR ---
BLOOD BANK NOTIFIED PER DR PEÑA'S REQUEST. 1 UNIT PRBC'S SHOULD WILL NOT BE GIVEN PER DR CAMPOS, WILL CONTINUE TO MONITOR.
--- NOTE | 2020-02-06 08:21 | Progress Note - Hospitalist ---
Subjective HPI/CC On Admission Date Seen by Provider: Feb 06, 2020 Time Seen by Provider: 07:05 Lucio Quintero is a 74 year old male with PMH HTN, HLD, CAD, GERD, T2DM, chronic back pain, who presented with dehydration. He is a poor historian. He reportedly had dark urine. He has lost some weight recently. He denies any fevers or c hills. He denies shortness of breath and cough. He denies chest pain. He denies abdominal pain. He denies nausea and vomiting. He denies dysuria. He denies any rash. He denies bleeding. He denies hematochezia and melena. He denies any history of low platelets. Subjective/Events-last exam he has no complaints today. He is asking when he can go home. He denies any fevers. He denies any shortness of breath or cough. He has not been having any bleeding. He has not noticed any blood in his stools. Objective Exam Vital Signs Vital Signs Date Time Temp Pulse Resp B/P (MAP) Pulse Ox O2 Delivery O2 Flow Rate FiO2 02/06/20 07:52 90 Nasal Cannula 3.00 02/06/20 07:00 89 02/06/20 03:56 37.2 18 132/60 (84) 02/02/20 12:51 28 Capillary Refill : Less Than 3 SecondsLess Than 3 Seconds General Appearance: No Apparent Distress, Chronically ill, Thin Respiratory: Lungs Clear, Normal Breath Sounds, No Respiratory Distress Cardiovascular: Regular Rate, Rhythm, No Edema, No Murmur Gastrointestinal: Normal Bowel Sounds, Non Tender, Soft Extremity: Normal Inspection, Non Tender, No Pedal Edema Neurologic/Psychiatric: Alert, Oriented x3, No Motor/Sensory Deficits, Normal Mood/Affect Skin: Normal Color, Warm/Dry Results/Procedures Lab Laboratory Tests 02/06/20 06:50 Patient resulted labs reviewed. Imaging: Reviewed Imaging Report Assessment/Plan Assessment and Plan Assess & Plan/Chief Complaint Pneumonia Blood culture contaminated Lung nodule Blood culture positive for Staph lugdunensis, appears to be contaminant Continue Rocephin and Azithromycin COVID KRISTY and PCR negative Follow up with pulmonology for lung nodule Thrombocytopenia Anemia Secondary to acute infection vs hemolytic anemia Platelets 75, improving Platelet transfusion 02/02 Hgb 6.9, slowly trending downward Iron low, folate normal T bili and LDH elevated, haptoglobin low Thelma pending Check indirect bilirubin Hold off on transfusion for now Discussed case with Dr. White, agrees with no transusion at this time, checking labs and monitoring DVT Prophylaxis: Lovenox Severe sepsis, resolved Azotemia, resolved Diagnosis/Problems Diagnosis/Problems (1) PNA (pneumonia) Status: Acute (2) Lung nodule Status: Acute (3) Microcytic anemia Status: Acute (4) Thrombocytopenia Status: Acute (5) Severe sepsis Status: Resolved Resolution Date/Time: 02/05/20 @ 13:44 (6) Azotemia Status: Resolved Resolution Date/Time: 02/05/20 @ 13:44 (7) BMI 20.0-20.9, adult Status: Acute Clinical Quality Measures DVT/VTE Risk/Contraindication: Risk Factor Score Per Nursin RFS Level Per Nursing on Admit: 4+=Very High Contraindications-Pharm: Other *list below* Other: Thrombocytopenia BEVERLY PEÑA MD Feb 06, 2020 08:20
[2020-02-06] MEDS: cefTRIAXone 1,000 MG/SWFI 10 ML IV PUSH IV SCH ×2 (09:23)
[2020-02-06] MEDS: ENOXAPARIN 40 MG/0.4 ML (LOVENOX) SYR SC SCH (09:23)
[2020-02-06] MEDS: DOCUSATE SODIUM 100 MG (COLACE) CAP PO SCH ×2 (09:24→20:30)
[2020-02-06] MEDS: AZITHROMYCIN 250 MG TAB (ZITHROMAX) PO SCH (09:24)
[2020-02-06] MEDS: SENNOSIDES 8.6 MG (SENOKOT) TAB PO SCH ×2 (09:25→20:30)
[2020-02-06 12:00] VITALS: BP 138/64
[2020-02-06 16:00] VITALS: BP 118/56
[2020-02-06 20:06] VITALS: BP 125/53
[2020-02-06] MEDS: LATANOPROST 0.005% (XALATAN) OPHTH SOLN 2.5 ML OU SCH (20:30)
[2020-02-07] VITALS (11 sets, daily range): BP systolic 101–133; BP diastolic 48–61
[2020-02-07] MEDS: inSUlin ASPART (NovoLOG) 1 UNIT/0.01 ML (CHARGE PER UNIT) SC SCH ×4 (05:52→20:17)
[2020-02-07 06:15] LABS: BASOPHILS % (AUTO) 0 % (0-10); EOSINOPHILS # (AUTO) 0.1 10^3/uL (0.0-0.3); EOSINOPHILS % (AUTO) 1 % (0-10); LYMPHOCYTES % (AUTO) 15 % (12-44); MEAN CORPUSCULAR HEMOGLOBIN 29 pg (25-34); MEAN CORPUSCULAR HGB CONC 34 g/dL (32-36); MEAN CORPUSCULAR VOLUME 86 fL (80-99); MEAN PLATELET VOLUME 12.6 fL (9.0-12.2); MONOCYTES # (AUTO) 1.1 10^3/uL (0.0-1.0); MONOCYTES % (AUTO) 8 % (0-12); NEUTROPHILS # (AUTO) 10.5 10^3/uL (1.8-7.8); NEUTROPHILS % (AUTO) 76 % (42-75); PLATELET COUNT 91 10^3/uL (130-400); WHITE BLOOD COUNT 13.9 10^3/uL (4.3-11.0)
[2020-02-07 06:23] LABS: HEMATOCRIT 20 % (40-54); HEMOGLOBIN 6.8 g/dL (13.3-17.7)
[2020-02-07 06:31] LABS: ALBUMIN 2.1 GM/DL (3.2-4.5); CHLORIDE 106 MMOL/L (98-107); POTASSIUM 4.6 MMOL/L (3.6-5.0); SODIUM 136 MMOL/L (135-145)
[2020-02-07 06:32] LABS: CALCIUM 7.8 MG/DL (8.5-10.1)
[2020-02-07 06:34] LABS: GLUCOSE 106 MG/DL (70-105); TOTAL PROTEIN 4.5 GM/DL (6.4-8.2)
[2020-02-07 06:35] LABS: BILIRUBIN,TOTAL 1.2 MG/DL (0.1-1.0); CARBON DIOXIDE 23 MMOL/L (21-32)
[2020-02-07 06:37] LABS: ALKALINE PHOSPHATASE 78 U/L (40-136); GFR ESTIMATED > 60
[2020-02-07 06:38] LABS: BUN/CREATININE RATIO 28
[2020-02-07 06:40] LABS: ALANINE AMINOTRANSFERASE 20 U/L (0-55)
[2020-02-07] MEDS: RT-ALBUTEROL/IPRATROPIUM 3 ML (DUONEB) VIAL INH SCH ×2 (07:48→20:09)
--- NOTE | 2020-02-07 09:18 | Progress Note - Hospitalist ---
Subjective HPI/CC On Admission Date Seen by Provider: Feb 07, 2020 Time Seen by Provider: 07:05 Lucio Quintero is a 74 year old male with PMH HTN, HLD, CAD, GERD, T2DM, chronic back pain, who presented with dehydration. He is a poor historian. He reportedly had dark urine. He has lost some weight recently. He denies any fevers or c hills. He denies shortness of breath and cough. He denies chest pain. He denies abdominal pain. He denies nausea and vomiting. He denies dysuria. He denies any rash. He denies bleeding. He denies hematochezia and melena. He denies any history of low platelets. Subjective/Events-last exam he is lying in bed. He denies any lightheadedness or dizziness. He he denies any bloody stools and has not noticed any other sites of bleeding. He has been eating and drinking. He has no other complaints or concerns. Objective Exam Vital Signs Vital Signs Date Time Temp Pulse Resp B/P (MAP) Pulse Ox O2 Delivery O2 Flow Rate FiO2 02/07/20 07:48 92 Nasal Cannula 3.00 02/07/20 04:00 36.8 101 20 120/61 (80) 02/02/20 12:51 28 Capillary Refill : Less Than 3 SecondsLess Than 3 Seconds General Appearance: No Apparent Distress, Chronically ill, Thin Respiratory: Lungs Clear, Normal Breath Sounds, No Respiratory Distress Cardiovascular: Regular Rate, Rhythm, No Edema, No Murmur Gastrointestinal: Normal Bowel Sounds, Non Tender, Soft Extremity: Normal Inspection, Non Tender, No Pedal Edema Neurologic/Psychiatric: Alert, Oriented x3, No Motor/Sensory Deficits, Depress ed Affect Skin: Normal Color, Warm/Dry Results/Procedures Lab Laboratory Tests 02/07/20 05:25 Patient resulted labs reviewed. Imaging: Reviewed Imaging Report Assessment/Plan Assessment and Plan Assess & Plan/Chief Complaint P[facility]onia [facility] up with pul[facility]ology for lung nodule Thrombocytopenia Anemia Platelets 91, improving s/p platelet transfusion 02/02 Hgb 6.8, slowly trending downward Iron low, folate normal Indirect bili and LDH slightly elevated, haptoglobin low, kamron negative Transfuse 1 unit PRBC DVT Prophylaxis: Lovenox Severe sepsis, resolved Azotemia, resolved Diagnosis/Problems Diagnosis/Problems (1) PNA (pneumonia) Status: Acute (2) Lung nodule Status: Acute (3) Microcytic anemia Status: Acute (4) Thrombocytopenia Status: Acute (5) Severe sepsis Status: Resolved Resolution Date/Time: 02/05/20 @ 13:44 (6) Azotemia Status: Resolved Resolution Date/Time: 02/05/20 @ 13:44 (7) BMI 20.0-20.9, adult Status: Acute Clinical Quality Measures DVT/VTE Risk/Contraindication: Risk Factor Score Per Nursin RFS Level Per Nursing on Admit: 4+=Very High Contraindications-Pharm: Other *list below* Other: Thrombocytopenia BEVERLY PEAÑ MD Feb 07, 2020 09:18
--- NOTE | 2020-02-07 09:27 | Physical Therapy Daily Note ---
PT Daily Note-Current Subjective Pt in bed, initially reluctantly agreeable to PT. After transfer to EOB Pt states, "I am not sure I can do this today. I got some sciatica." Pain not rated but Pt localizes to (R) hip, lateral leg. Encouraged to increase activity, Pt declined. Mental Status Patient Orientation: Person, Place, Time, Situation Attachments: Oxygen Transfers SCALE: Activities may be completed with or without assistive devices. 4-Iclqgnapmv-edpbaaj completes the activity by him/herself with no assistance from a helper. 5-Set-up or Clean-up Assistance-helper sets up or cleans up; patient completes activity. [place] assists only prior to or following the activity. 4-Supervision or Touching Assistance-helper provides verbal cues and/or touching/steadying and/or contact guard assistance as patient completes activity. Assistance may be provided throughout the activity or intermittently. 3-Partial/Moderate Assistance-helper does LESS THAN HALF the effort. [place] lifts, holds or supports trunk or limbs, but provides less than half the effort. 2-Substantial/Maximal Assistance-helper does MORE THAN HALF the effort. [place] lifts or holds trunk or limbs and provides more than half the effort. 9-Cyerhqjjb-junnua does ALL the effort. Patient does none of the effort to complete the activity. Or, the assistance of 2 or more helpers is required for the patient to complete the activity. If activity was not attempted, code reason: 7-Patient Refused. 9-Not Applicable-not attempted and the patient did not perform the activity before the current illness, exacerbation or injury. 10-Not Attempted due to Environmental Limitations-(lack of equipment, weather restraints, etc.). 88-Not Attempted due to Medical Conditions or Safety Concerns. Roll Left & Right (QC): 5 Sit to Lying (QC): 3 Lying to Sitting/Side of Bed(Q: 4 Sit to Stand (QC): 5 Pt sit<->stand x 2 trials. Initially standing at EOB and weight-shifting, stepping in place. Pt requested to return to sitting due to (R) LE pain. After brief sitting break, Pt again stood and stepped to HOB before returning to sit. Initially Pt attempted to move back into bed, simply lying back, sideways across bed. Assisted back to sitting then instructed to log roll with assist for (B) LE. Weight Bearing Right Lower Extremity: Right Weight Bearing/Tolerated Left Lower Extremity: Left Weight Bearing/Tolerated Gait Training Does the Patient Walk?: Yes Distance: 3 Gait Assistive Device: FWW Sidesteps to HOB only this date due to (R) LE pain. Exercises Supine Ex: Ankle pumps, Quad Set, Glut sets Supine Reps: 12 Treatments Transfers and LE ex. Attempted ambulation, Pt declined. Returned to bed with all needs met, O2 in situ. Assessment Current Status: Poor Progress Pt tolerated fair. Self-limited activity this date due to c/o (R) LE "sciatic" pain despite education on benefits of increased activity, position change. PT Short Term Goals Short Term Goals Time Frame: Feb 18, 2020 Sit to stand: 6 Walk 50 feet with two turns: 6 Walk 150 feet: 4 1 step (curb): 4 PT Plan Problem List Problem List: Activity Tolerance, Functional Strength, Safety, Balance, Gait, Transfer, Bed Mobility Treatment/Plan Treatment Plan: Continue Plan of Care Treatment Plan: Bed Mobility, Education, Functional Activity Gerard, Functional Strength, Gait, Safety, Therapeutic Exercise, Transfers Treatment Duration: Feb 18, 2020 Frequency: 6 times per week Estimated Hrs Per Day: .25 hour per day Patient and/or Family Agrees t: Yes Discharge Recommendations Barriers to Progress (R) LE pain Time/GCodes Time In: 858 Time Out: 911 Total Billed Treatment Time: 13 Total Billed Treatment 1, FA x 13' TERRENCE REYNOLDS DPGalo Feb 07, 2020 09:27
[2020-02-07] MEDS: AZITHROMYCIN 250 MG TAB (ZITHROMAX) PO SCH (09:57)
[2020-02-07] MEDS: ENOXAPARIN 40 MG/0.4 ML (LOVENOX) SYR SC SCH (09:57)
[2020-02-07] MEDS: SENNOSIDES 8.6 MG (SENOKOT) TAB PO SCH ×2 (09:57→20:16)
[2020-02-07] MEDS: DOCUSATE SODIUM 100 MG (COLACE) CAP PO SCH ×2 (09:57→20:17)
[2020-02-07] MEDS ORDERED: NS IV 500 ML 500 ML ONE (11:32)
[2020-02-07] MEDS: NS IV 1000 ML 1,000 ML IV SCH (16:57)
[2020-02-07] MEDS: LATANOPROST 0.005% (XALATAN) OPHTH SOLN 2.5 ML OU SCH (20:17)
[2020-02-07] MEDS: MELATONIN 3 MG TABLET PO PRN (20:17)
[2020-02-08 00:10] VITALS: BP 118/56
[2020-02-08 04:00] VITALS: BP 143/63
[2020-02-08 05:20] LABS: BASOPHILS % (AUTO) 0 % (0-10); EOSINOPHILS # (AUTO) 0.2 10^3/uL (0.0-0.3); EOSINOPHILS % (AUTO) 1 % (0-10); HEMATOCRIT 25 % (40-54); LYMPHOCYTES # (AUTO) 1.9 10^3/uL (1.0-4.0); LYMPHOCYTES % (AUTO) 14 % (12-44); MEAN CORPUSCULAR HEMOGLOBIN 28 pg (25-34); MEAN CORPUSCULAR HGB CONC 33 g/dL (32-36); MEAN CORPUSCULAR VOLUME 87 fL (80-99); MEAN PLATELET VOLUME 11.8 fL (9.0-12.2); MONOCYTES # (AUTO) 1.1 10^3/uL (0.0-1.0); MONOCYTES % (AUTO) 8 % (0-12); NEUTROPHILS # (AUTO) 10.9 10^3/uL (1.8-7.8); NEUTROPHILS % (AUTO) 77 % (42-75); PLATELET COUNT 81 10^3/uL (130-400); WHITE BLOOD COUNT 14.1 10^3/uL (4.3-11.0)
[2020-02-08 05:37] LABS: ALBUMIN 2.2 GM/DL (3.2-4.5); CHLORIDE 106 MMOL/L (98-107); POTASSIUM 4.3 MMOL/L (3.6-5.0); SODIUM 136 MMOL/L (135-145)
[2020-02-08 05:38] LABS: CALCIUM 7.8 MG/DL (8.5-10.1)
[2020-02-08 05:39] LABS: GLUCOSE 134 MG/DL (70-105); TOTAL PROTEIN 4.8 GM/DL (6.4-8.2)
[2020-02-08 05:40] LABS: CARBON DIOXIDE 24 MMOL/L (21-32)
[2020-02-08 05:41] LABS: BILIRUBIN,TOTAL 0.9 MG/DL (0.1-1.0)
[2020-02-08 05:43] LABS: ALKALINE PHOSPHATASE 75 U/L (40-136); CREATININE SERUM 0.61 MG/DL (0.60-1.30); GFR ESTIMATED > 60
[2020-02-08 05:44] LABS: BUN/CREATININE RATIO 30
[2020-02-08 05:46] LABS: ALANINE AMINOTRANSFERASE 20 U/L (0-55)
[2020-02-08] MEDS: inSUlin ASPART (NovoLOG) 1 UNIT/0.01 ML (CHARGE PER UNIT) SC SCH ×4 (05:50→21:04)
[2020-02-08] MEDS: NS IV 1000 ML 1,000 ML IV SCH ×2 (06:34→18:51)
[2020-02-08 08:00] VITALS: BP 148/90
[2020-02-08] MEDS: RT-ALBUTEROL/IPRATROPIUM 3 ML (DUONEB) VIAL INH SCH ×2 (08:12→22:38)
[2020-02-08] MEDS: CEFDINIR 300 MG (OMNICEF) CAP PO SCH ×2 (09:20→21:01)
[2020-02-08] MEDS: DOCUSATE SODIUM 100 MG (COLACE) CAP PO SCH ×2 (09:20→21:01)
[2020-02-08] MEDS: SENNOSIDES 8.6 MG (SENOKOT) TAB PO SCH ×2 (09:20→21:01)
[2020-02-08] MEDS: ENOXAPARIN 40 MG/0.4 ML (LOVENOX) SYR SC SCH (09:20)
[2020-02-08 12:00] VITALS: BP 115/56
--- NOTE | 2020-02-08 12:40 | NUR ---
Spoke with and updated patients at this time
--- NOTE | 2020-02-08 14:54 | Progress Note - Hospitalist ---
Subjective HPI/CC On Admission Date Seen by Provider: Feb 08, 2020 Time Seen by Provider: 10:05 Lucio Quintero is a 74 year old male with PMH HTN, HLD, CAD, GERD, T2DM, chronic back pain, who presented with dehydration. He is a poor historian. He reportedly had dark urine. He has lost some weight recently. He denies any fevers or c hills. He denies shortness of breath and cough. He denies chest pain. He denies abdominal pain. He denies nausea and vomiting. He denies dysuria. He denies any rash. He denies bleeding. He denies hematochezia and melena. He denies any history of low platelets. Subjective/Events-last exam He denies any shortness of breath. He denies any fevers. He has no complaints or concerns. Objective Exam Vital Signs Vital Signs Date Time Temp Pulse Resp B/P (MAP) Pulse Ox O2 Delivery O2 Flow Rate FiO2 02/08/20 12:00 36.7 101 20 115/56 (75) 92 Nasal Cannula 3.00 02/02/20 12:51 28 Capillary Refill : Less Than 3 SecondsLess Than 3 Seconds General Appearance: No Apparent Distress, Thin Respiratory: Lungs Clear, Normal Breath Sounds, No Respiratory Distress Cardiovascular: Regular Rate, Rhythm, No Edema, No Murmur Gastrointestinal: Normal Bowel Sounds, Non Tender, Soft Extremity: Normal Inspection, No Pedal Edema Neurologic/Psychiatric: Alert, Oriented x3, No Motor/Sensory Deficits, Normal Mood/Affect Skin: Normal Color, Warm/Dry Results/Procedures Lab Laboratory Tests 02/08/20 05:08 Patient resulted labs reviewed. Imaging: Reviewed Imaging Report Assessment/Plan Assessment and Plan Assess & Plan/Chief Complaint Pneumonia Acute respiratory failure with hypoxia Continue Omnicef Home O2 study Lung nodule Follow up with pulmonology Thrombocytopenia Anemia Platelets 81, stable s/p platelet transfusion 02/02 s/p 1 unit PRBC Hgb 8, responded appropriately to transfusion Debility PT/OT Likely HH on discharge DVT Prophylaxis: Lovenox Severe sepsis, resolved Azotemia, resolved Diagnosis/Problems Diagnosis/Problems (1) Acute respiratory failure with hypoxia Status: Acute (2) PNA (pneumonia) Status: Acute (3) Lung nodule Status: Acute (4) Microcytic anemia Status: Acute (5) Thrombocytopenia Status: Acute (6) Severe sepsis Status: Resolved Resolution Date/Time: 02/05/20 @ 13:44 (7) Azotemia Status: Resolved Resolution Date/Time: 02/05/20 @ 13:44 (8) BMI 20.0-20.9, adult Status: Acute Clinical Quality Measures DVT/VTE Risk/Contraindication: Risk Factor Score Per Nursin RFS Level Per Nursing on Admit: 4+=Very High Contraindications-Pharm: Other *list below* Other: Thrombocytopenia BEVERLY PEÑA MD Feb 08, 2020 14:54
[2020-02-08 16:00] VITALS: BP 119/56
--- NOTE | 2020-02-08 16:24 | NUR ---
PATIENTS SAT ON 3L/M WAS 92% PATIENT PLACED ON ROOM AIR FOR 15 MIN. SAT DROPPED TO 79% PATIENT PLACED BACK ON 3L/M SAT RETURNED TO 90% RECOMMEND 3 TO 6 LITTERS OF OXYGEN Addendum: 02/08/20 at 1628 by DALILA GARCIAS RT Amended: Links added.
[2020-02-08 20:37] VITALS: BP 112/56
[2020-02-08] MEDS ORDERED: MIRTAZAPINE 15 MG (REMERON) TAB PO SCH (21:00)
[2020-02-08] MEDS: LATANOPROST 0.005% (XALATAN) OPHTH SOLN 2.5 ML OU SCH (21:03)
[2020-02-09 00:24] VITALS: BP 133/61
[2020-02-09 05:06] LABS: BASOPHILS % (AUTO) 0 % (0-10); EOSINOPHILS % (AUTO) 0 % (0-10); HEMATOCRIT 25 % (40-54); LYMPHOCYTES # (AUTO) 2.1 10^3/uL (1.0-4.0); LYMPHOCYTES % (AUTO) 14 % (12-44); MEAN CORPUSCULAR HEMOGLOBIN 29 pg (25-34); MEAN CORPUSCULAR HGB CONC 32 g/dL (32-36); MEAN CORPUSCULAR VOLUME 89 fL (80-99); MEAN PLATELET VOLUME 12.1 fL (9.0-12.2); MONOCYTES # (AUTO) 1.1 10^3/uL (0.0-1.0); MONOCYTES % (AUTO) 8 % (0-12); NEUTROPHILS # (AUTO) 11.4 10^3/uL (1.8-7.8); NEUTROPHILS % (AUTO) 77 % (42-75); PLATELET COUNT 81 10^3/uL (130-400); WHITE BLOOD COUNT 14.8 10^3/uL (4.3-11.0)
[2020-02-09 05:34] LABS: ALANINE AMINOTRANSFERASE 15 U/L (0-55); ALBUMIN 2.1 GM/DL (3.2-4.5); ALKALINE PHOSPHATASE 74 U/L (40-136); BILIRUBIN,TOTAL 0.9 MG/DL (0.1-1.0); BUN/CREATININE RATIO 29; CALCIUM 7.8 MG/DL (8.5-10.1); CARBON DIOXIDE 25 MMOL/L (21-32); CHLORIDE 109 MMOL/L (98-107); CREATININE SERUM 0.65 MG/DL (0.60-1.30); GFR ESTIMATED > 60; GLUCOSE 118 MG/DL (70-105); POTASSIUM 4.2 MMOL/L (3.6-5.0); SODIUM 140 MMOL/L (135-145)
[2020-02-09] MEDS: inSUlin ASPART (NovoLOG) 1 UNIT/0.01 ML (CHARGE PER UNIT) SC SCH (05:39)
[2020-02-09 07:56] VITALS: BP 129/53
--- NOTE | 2020-02-09 07:58 | Pulmonary Progress Note ---
Subjective Time Seen by a Provider: 07:54 Sepsis Event Evaluation Height, Weight, BMI Height: 5'10.00" Weight: 144lbs. 0.0oz. [id number]; 18.09 BMI Method: Exam Exam Vital Signs Date Time Temp Pulse Resp B/P (MAP) Pulse Ox O2 Delivery O2 Flow Rate FiO2 02/09/20 00:24 36.8 108 18 133/61 (85) 94 Nasal Cannula 4.00 02/08/20 20:37 37.1 76 18 112/56 (74) 92 Nasal Cannula 4.00 02/08/20 19:52 Nasal Cannula 4.00 02/08/20 16:20 104 92 3.00 79 02/08/20 16:00 37.1 107 18 119/56 (77) 93 Nasal Cannula 3.00 02/08/20 12:00 36.7 101 20 115/56 (75) 92 Nasal Cannula 3.00 02/08/20 08:12 91 Nasal Cannula 3.00 02/08/20 08:00 Nasal Cannula 3.00 02/08/20 08:00 37.6 90 20 148/90 (109) 92 Nasal Cannula 3.00 I & O 02/09/20 07:00 Intake Total 1175 ml Output Total 1375 ml Balance -200 ml Height & Weight Height: 5'10.00" Weight: 144lbs. 0.0oz. 65.075786tj; 18.09 BMI Method: General Appearance: No Apparent Distress, Thin HEENT: PERRL/EOMI, Other (dry mucous membrandes) Neck: Normal Inspection, Supple Respiratory: Lungs Clear, Normal Breath Sounds, No Respiratory Distress Cardiovascular: Regular Rate, Rhythm, No Edema, No Murmur Capillary Refill: Less Than 3 Seconds Extremity: Normal Inspection, No Pedal Edema Neurologic/Psychiatric: Alert, Oriented x3, No Motor/Sensory Deficits, Normal Mood/Affect Skin: Normal Color, Warm/Dry Results Lab Laboratory Tests 02/08/20 05:08 02/09/20 04:50 Assessment/Plan Assessment/Plan Severe sepsis- improving Pneumonia with hkypoxemia -Currently requiring 4 liters of oxygen -Will probaby need home 02 -Currently on Omnicef -Repeat PCT, and BNP -SL IVF COVID KRISTY negative, PCR pending Lung nodule right lower lobe infiltrate, 11 mm nodule -Will have pt f.u with me as out pt. Thrombocytopenia -oncology is consulted Hypotension -Monitor -Tele Microcytic anemia DVT Prophylaxis: held due to thrombocytopenia UPDATE: Pt became unresponsive this morning with PT. Dr. Nunez responded and orde red ABG, Stat CT of head. BS is WNL. Pt is being transferred to ICU. PT also has mild hypotension. Will monitor closely. SHELLI ORTIZ DO Feb 09, 2020 07:58
[2020-02-09] MEDS: SENNOSIDES 8.6 MG (SENOKOT) TAB PO SCH (08:39)
[2020-02-09] MEDS: DOCUSATE SODIUM 100 MG (COLACE) CAP PO SCH (08:39)
[2020-02-09] MEDS: CEFDINIR 300 MG (OMNICEF) CAP PO SCH (08:39)
[2020-02-09] MEDS: ENOXAPARIN 40 MG/0.4 ML (LOVENOX) SYR SC SCH (08:39)
[2020-02-09 09:50] VITALS: BP 126/58
--- NOTE | 2020-02-09 10:03 | NUR ---
AT 0950 PAY PER CLICK STRATEGIST ARRIVED TO ROOM AND PATIENT REPORTS THAT HE IS HAVING TROUBLE BREATHING, VITALS TAKEN 162 PULSE 178/74 BP 88% OXYGEN. THIS RN WAS IN PROCEDURE WITH ANOTHER PATIENT AND THEY CAME AND INFORMED THIS RN. THIS RN INFORMED TO PULL UP IN BED AND SIT UP AND PUT OXYMASK ON 10L. LIANG COWAN WAS ALREADY AT BEDSIDE WHEN THIS RN ARRIVED TO ASSESS PATIENT. THIS RN WAS GIVEN VITALS AND PATIENT WAS UNRESPONSIVE UPON THIS RN ARRIVAL. LIANG COWAN INFORMED THAT SHE ARRIVED AT 0950 AND PATIENT WAS RESPONSIVE AT THAT TIME AND REPORTS DECREASE IN LOC AT 0958. STERNAL RUB WITH NO RESPONSE BUT BLANK STARE. THIS RN CALLED RAPID RESPONSE AT 1003. CUPOLA OPERATOR INSULATION ARRIVED AT [address] RUIZ PHONED AND ARRIVED AT 1006. THIS RN INFORMED VITALS AT 0950 162 PULSE, 36.1 TEMP 178/74 BP, 88% OXYGEN 6L 28 RR. 1000 116 PULSE, 126/58 BP, 93% OXYGEN OXYMASK 10L 24 RR. 1010 117 PULSE, 109/59 BP, 92% OXYMASK 10L. BLOOD SUGAR TAKEN AT 1005 135 AND EKG ORDERED. RT CARRILLO PRESENT AT 1007. AT 1008 DR. RUIZ IN ROOM AND ORDERED CXR, ABG, CT HEAD. PUPILS PERRL 2. PATIENT TRANSPORTED TO CT AND XRAY WITH OXYMASK 10L AND [facility] CONNECTED AT 1015 WITH LIANG HAMCASTING AND LOCKER ROOM SERVICER AND LIANG BERUMEN. PATIENT TAKEN TO ICU4 AT 1030 AND REPORT GIVEN TO LIANG VALDERRAMA. DR. RUIZ VERBAL ORDER NS 1L BOLUS. DR.. ORTIZ ON FLOOR AT 1030 AND GAVE VERBAL ORDER FOR LR @ 145 ML/HR AFTER NS BOLUS. LIANG COWAN ATTEMPTED TO PHONE AT 1017 WITH NO ANSWER. THIS RN TRIED AGAIN AT 1120 WITH NO ANSWER. PATIENT ON MONITOR ICU4 WITH OXYMASK 6L PER DR. ORTIZ.
[2020-02-09] MEDS ORDERED: NS IV 1000 ML 1,000 ML ONE ×2 (10:36→12:00)
[2020-02-09] MEDS ORDERED: LACTATED RINGERS 1,000 ML IV ONE (10:51)
--- NOTE | 2020-02-09 10:51 | Diagnostic Imaging Report ---
INDICATION: Unresponsive. Comparison made with prior examination 02/02/2020. FINDINGS: There is diffuse bilateral airspace disease. There is cardiomegaly. There is no pneumothorax. There is no pleural effusion. The mediastinum is unremarkable. IMPRESSION: Diffuse bilateral airspace disease suspect for Covid pneumonia. Cardiomegaly and some central pulmonary venous congestion. Dictated by: Dictated on workstation # [id number]
--- NOTE | 2020-02-09 10:55 | Diagnostic Imaging Report ---
PROCEDURE: CT head without contrast. TECHNIQUE: Multiple contiguous axial images were obtained through the brain without the use of intravenous contrast. Auto Exposure Controls were utilized during the CT exam to meet ALARA standards for radiation dose reduction. INDICATION: Sudden unresponsiveness. FINDINGS: There is prominence of the ventricles and sulci. There is no hydrocephalus or cerebral edema. There is no midline shift or mass-effect. There is no intracranial mass, hemorrhage, or extra-axial fluid collection. There is some diffuse decreased attenuation of the periventricular white matter which is nonspecific. The visualized paranasal sinuses and mastoid air cells are clear. There are no regional areas of decreased attenuation appreciated to suggest an acute CVA. IMPRESSION: 1. No acute intracranial process. 2. Age-appropriate atrophy. 3. Decreased attenuation of the periventricular white matter which is nonspecific, however, likely reflects senescent change and/or chronic small vessel ischemic disease. If there is high clinical concern for an acute CVA, further evaluation with MRI should be considered. Dictated by: Dictated on workstation # [id number]
[2020-02-09 11:00] VITALS: BP 103/41
--- NOTE | 2020-02-09 11:17 | Physical Therapy Progress Note ---
Therapy Progress Note Attempted to treat patient around 1010 this morning. Patient has a crash cart and several medical personnel in his room, he is having medical issues and has become unresponsive. No tx at this time, hold for now, if he goes to ICU we will need new orders to continue when appropriate. DAVID HE PT Feb 09, 2020 11:17
[2020-02-09 11:18] LABS: ABG BASE EXCESS -2.2 MMOL/L (-2.5-2.5); ABG OXYGEN SATURATION 97 % (94-100); ABG PCO2 26 MMHG (35-45); ABG PH 7.51 (7.37-7.43); ABG PO2 89 MMHG (79-93); ABG TCO2 21.2 MMOL/L (21.0-31.0)
[2020-02-09 11:19] LABS: ALLENS TEST YES-POS; INSPIRED O2 5L; PATIENT TEMP 36.9; VENTILATOR NO
--- NOTE | 2020-02-09 11:47 | NUR ---
TIMELINE NOTE FROM CODE: See primary RN note for beginning of code 1145-pt with no pulse 1149-no pulse 1149-glucose 108 1149-Epi given 1150-Pt intubated with 7.5 ETT 22 at the lip, color change achieved, pt bagged by RT 1151-no pulse 1152-Epi given 1153-no pulse 1155-Epi given and no pulse felt or seen 1157-no pulse, pt in PEA 1158-Epi given 1159-Pulse detected, bradycardia 1200-Atropine given 1201-Bicarb given 1202-HR 86 1204-no pulse, compressions started 1205-Epi given 1206-no pulse, PEA 1208-pulse detected, bradycardia, atropine given 1210-Epi given 1211-Art line attempted 1213-no pulse, compressions started 1214-Dr. Nunez recapping pt hx and events that happened today. asked all present if there were any objections to stopping resuscitation attempts if there was no pulse at the next pulse check. All agreed to stop attempts. 1215-pulse check, no pulse seen or felt, Resuscitation attempts stopped at this time by Dr. Nunez.
[2020-02-09] MEDS ORDERED: NS IV 500 ML 500 ML ONE (12:01)
[2020-02-09] MEDS ORDERED: EPINEPHrine 1 MG INJECTION 4 MG in NS (IVPB) 246 ML IV SCH (12:15)
[2020-02-09 12:18] LABS: BASOPHILS % (AUTO) 0 % (0-10); EOSINOPHILS % (AUTO) 0 % (0-10); HEMATOCRIT 23 % (40-54); HEMOGLOBIN 7.3 g/dL (13.3-17.7); LYMPHOCYTES # (AUTO) 6.5 10^3/uL (1.0-4.0); LYMPHOCYTES % (AUTO) 40 % (12-44); MEAN CORPUSCULAR HEMOGLOBIN 29 pg (25-34); MEAN CORPUSCULAR HGB CONC 32 g/dL (32-36); MEAN CORPUSCULAR VOLUME 92 fL (80-99); MEAN PLATELET VOLUME 12.7 fL (9.0-12.2); MONOCYTES # (AUTO) 0.8 10^3/uL (0.0-1.0); MONOCYTES % (AUTO) 5 % (0-12); NEUTROPHILS # (AUTO) 8.4 10^3/uL (1.8-7.8); NEUTROPHILS % (AUTO) 52 % (42-75); PLATELET COUNT 57 10^3/uL (130-400); WHITE BLOOD COUNT 16.1 10^3/uL (4.3-11.0)
--- NOTE | 2020-02-09 12:19 | NUR ---
1140 IN PT ROOM, PT WAS AGONAL BREATHING. CONTACTED EICU AND DR ORTIZ. RECEIVED ORDERS FOR VAPOTHERM. WAS CONTACTING RT ABOUT VAPOTHERM. HEARD RON, CHECKED PT. FOUND PT HAD JUST CODED AT 1145. TIMELINE OF EVENTS TO FOLLOW
[2020-02-09 12:35] LABS: BUN/CREATININE RATIO 29; CALCIUM 6.8 MG/DL (8.5-10.1); CARBON DIOXIDE 28 MMOL/L (21-32); CHLORIDE 112 MMOL/L (98-107); CREATININE SERUM 0.72 MG/DL (0.60-1.30); GFR ESTIMATED > 60; GLUCOSE 123 MG/DL (70-105); MAGNESIUM 2.1 MG/DL (1.6-2.4); POTASSIUM 4.4 MMOL/L (3.6-5.0); SODIUM 147 MMOL/L (135-145)
--- NOTE | 2020-02-09 12:51 | NUR ---
CONTACTED [facility], REFERRAL NUMBER [phone]. BODY RELEASED BY CARA
[2020-02-09 13:08] LABS: ANISOCYTOSIS SLIGHT; BAND NEUTROPHILS 2 %; BASOPHILS % (MANUAL) 0 %; EOSINOPHILS % (MANUAL) 0 %; LYMPHOCYTES % (MANUAL) 52 %; MONOCYTES % (MANUAL) 5 %; MYELOCYTES % 1 %; NEUTROPHILS % (MANUAL) 40 %
--- NOTE | 2020-02-09 13:27 | Occ Therapy Progress Note ---
Therapy Progress Note Pt has moved to ICU. Due to decrease in medical status, OT will need new orders when medically stable to resume therapy. BEVERLY HANSON Feb 09, 2020 13:27
[2020-02-09] MEDS ORDERED: SODIUM BICARB 8.4% 50 MEQ/50 ML (ABBOTT) SYR INJ ONE (14:32)
[2020-02-09] MEDS ORDERED: CATHETER FLUSH 10 ML SYR IV ONE (14:32)
[2020-02-09] MEDS ORDERED: ATROPINE INJECTION 1 MG/10 ML SYR (ABBOTT) INJ ONE (14:32)
[2020-02-09] MEDS ORDERED: EPINEPHrine 0.1 MG/ML 10 ML (HOSPIRA) SYR INJ ONE (14:32)
--- NOTE | 2020-02-09 16:46 | Code Blue Response-Hospitalist ---
General Date Seen/Responded 02/09/20 Exam Limitations: clinical condition History of Present Illness Time seen by provider: 11:45 Initial Comments Responded to overhead JAMIE TRAN in ICU4. Pt was in PEA on arrival with CPR in process. Anesthesia at bedside and intubated at 1150. JAMIE TRAN ran in accordance with with ACLS protocol. PEA was the predominant rhythm throughout the code.He was given epi x6, atropine once during ROSC, and bicarb once. He did shortly regain ROSC twice but for roughly 2 minutes. Labs were drawn in that timeframe and epi gtt ordered. He lost a pulse again and CPR was resumed. I spoke with his regarding these events and she stated he would never want to live in a correction or need halfway interventions such as trach or peg. Informed her that after roughly 20m of CPR that these would be likely outcomes and efforts would cease. After ~20-25 total minutes of JAMIE TRAN efforts and care reviewed with code team he remained pulseless and code was called. Time of was 1215. Allergies and Home Medications Allergies Coded Allergies: [place] Known Allergies (Verified Allergy, Unknown, 02/28/06) Home Medications Apixaban 5 Mg Tablet, 5 MG PO BID, (Reported) TAKE 2 TABLETS BID X 7 DAYS, THEN 1 TABLET BID Atorvastatin Calcium 40 Mg Tablet, 40 MG PO DAILY, (Reported) Docusate Sodium 100 Mg Cap, 100 MG PO BID Prescribed by: DEE PAGAN on 08/08/13 0836 Dronedarone HCl 400 Mg Tablet, 400 MG PO BID, (Reported) Famotidine 20 Mg Tablet, 20 MG PO BID, (Reported) Hydrocodone/Acetaminophen 1 Each Tablet, 1 TAB PO Q6H PRN for PAIN-MODERATE (5- 7) Prescribed by: VICTORINA ORTIZ on 12/24/19 0915 Metformin Hcl 500 Mg Tablet, 1 EACH PO BID WITH MEALS, (Reported) Metoprolol Tartrate 25 Mg Tablet, 12.5 MG PO BID Prescribed by: DEE PAGAN on 08/08/13 0836 [place]-3/Dha/Epa/Fish Oil 1 Each Capsule.dr, 3 EACH PO DAILY, (Reported) Physical Exam Vital Signs Vital Signs - First Documented 02/03/20 00:53 Temp 36.4 Pulse 87 Resp 20 B/P (MAP) 102/48 (66) Pulse Ox 96 O2 Delivery Nasal Cannula O2 Flow Rate 1.00 Capillary Refill : Less Than 3 SecondsLess Than 3 Seconds Height, Weight, BMI Height: 5'10.00" Weight: 144lbs. 0.0oz. [id number]; 18.09 BMI Method: General Appearance: severe distress Critical Care Note Critical Care Start Time: 12:45 Stop Time: 12:20 Progress/Results/Core Measures Results/Orders Lab Results Laboratory Tests Test 02/02/20 08:50 02/02/20 08:51 02/02/20 09:05 02/02/20 09:25 Range/Units Glucometer 121 H 70-110 MG/DL White Blood Count 14.6 H 4.3-11.0 10^3/uL Red Blood Count 3.69 L 4.30-5.52 10^6/uL Hemoglobin 10.6 L 13.3-17.7 g/dL Hematocrit 30 L 40-54 % Mean Corpuscular Volume 82 80-99 fL Mean Corpuscular Hemoglobin 29 25-34 pg Mean Corpuscular Hemoglobin Concent 35 32-36 g/dL Red Cell Distribution Width 14.6 H 10.0-14.5 % Platelet Count 16 *L 130-400 10^3/uL Mean Platelet Volume 9.0-12.2 fL Immature Granulocyte % (Auto) 1 % Neutrophils (%) (Auto) 80 H 42-75 % Lymphocytes (%) (Auto) 8 L 12-44 % Monocytes (%) (Auto) 11 0-12 % Eosinophils (%) (Auto) 0 0-10 % Basophils (%) (Auto) 0 0-10 % Neutrophils # (Auto) 11.7 H 1.8-7.8 10^3/uL Lymphocytes # (Auto) 1.1 1.0-4.0 10^3/uL Monocytes # (Auto) 1.6 H 0.0-1.0 10^3/uL Eosinophils # (Auto) 0.0 0.0-0.3 10^3/uL Basophils # (Auto) 0.0 0.0-0.1 10^3/uL Immature Granulocyte # (Auto) 0.2 H 0.0-0.1 10^3/uL Neutrophils % (Manual) 86 % Lymphocytes % (Manual) 7 % Monocytes % (Manual) 5 % Eosinophils % (Manual) 0 % Basophils % (Manual) 0 % Band Neutrophils 2 % Poikilocytosis SLIGHT Elliptocytes SLIGHT Prothrombin Time 20.4 H 12.2-14.7 SEC INR Comment 1.7 H 0.8-1.4 Activated Partial Thromboplast Time 31 24-35 SEC Sodium Level 133 L 135-145 MMOL/L Potassium Level 5.4 H 3.6-5.0 MMOL/L Chloride Level 103 98-107 MMOL/L Carbon Dioxide Level 20 L 21-32 MMOL/L Anion Gap 10 5-14 MMOL/L Blood Urea Nitrogen 55 H 7-18 MG/DL Creatinine 1.03 0.60-1.30 MG/DL Estimat Glomerular Filtration Rate > 60 BUN/Creatinine Ratio 53 Glucose Level 124 H 70-105 MG/DL Calcium Level 8.2 L 8.5-10.1 MG/DL Corrected Calcium 9.3 8.5-10.1 MG/DL Magnesium Level 2.0 1.6-2.4 MG/DL Iron Level 26 L 37-167 ug/dL Total Iron Binding Capacity 188 L 237-330 ug/dL Unsaturated Iron Binding Capacity 162 25-500 ug/dL Transferrin % Saturation 14 L 17-57 % Ferritin 669.8 H 32.0-356.0 ng/mL Total Bilirubin 1.9 H 0.1-1.0 MG/DL Aspartate Amino Transf (AST/SGOT) 40 H 5-34 U/L Alanine Aminotransferase (ALT/SGPT) 43 0-55 U/L Alkaline Phosphatase 97 40-136 U/L Total Protein 5.2 L 6.4-8.2 GM/DL Albumin 2.6 L 3.2-4.5 GM/DL Amylase Level 41 25-125 U/L Lipase 23 8-78 U/L Folate 8.3 >=4.0 ng/mL Procalcitonin 1.09 H <0.10 NG/ML Urine Color DARK YELLOW Urine Clarity SL CLOUDY Urine pH 5.5 5-9 Urine Specific [place] 1.015 L 1.016-1.022 Urine Protein TRACE H NEGATIVE Urine Glucose (UA) NEGATIVE NEGATIVE Urine Ketones NEGATIVE NEGATIVE Urine Nitrite NEGATIVE NEGATIVE Urine Bilirubin NEGATIVE NEGATIVE Urine Urobilinogen 2.0 < = 1.0 MG/DL Urine Leukocyte Esterase NEGATIVE NEGATIVE Urine RBC (Auto) TRACE-L NEGATIVE Urine RBC 0-2 /HPF Urine WBC RARE /HPF Urine Squamous Epithelial Cells RARE /HPF Urine Crystals NONE /LPF Urine Bacteria NEGATIVE /HPF Urine Casts NONE /LPF Urine Mucus NEGATIVE /LPF Urine Culture Indicated NO Coronavirus (COVID-19)(PCR) Negative Negative Coronavirus 2018 ([facility]ST[facility]) Negative Negative Test 02/02/20 10:30 02/02/20 11:50 02/02/20 16:40 02/02/20 20:03 Range/Units Lab Scanned Report Referred Lab Report [id number] Lactic Acid Level 1.02 0.50-2.00 MMOL/L Glucometer 210 H 223 H 70-110 MG/DL Test 02/03/20 04:35 02/03/20 05:08 02/03/20 11:17 02/03/20 12:52 Range/Units Haptoglobin <8.0 L 37.0-184.0 mg/dL White Blood Count 11.6 H 15.2 H 4.3-11.0 10^3/uL Red Blood Count 2.92 L 2.81 L 4.30-5.52 10^6/uL Hemoglobin 8.4 #L 8.0 L 13.3-17.7 g/dL Hematocrit 24 L 23 L 40-54 % Mean Corpuscular Volume 82 82 80-99 fL Mean Corpuscular Hemoglobin 29 29 25-34 pg Mean Corpuscular Hemoglobin Concent 35 35 32-36 g/dL Red Cell Distribution Width 14.6 H 14.7 H 10.0-14.5 % Platelet Count 17 *L 32 *L 130-400 10^3/uL Mean Platelet Volume 9.0-12.2 fL Immature Granulocyte % (Auto) 1 1 % Neutrophils (%) (Auto) 73 77 H 42-75 % Lymphocytes (%) (Auto) 11 L 9 L 12-44 % Monocytes (%) (Auto) 15 H 12 0-12 % Eosinophils (%) (Auto) 0 0 0-10 % Basophils (%) (Auto) 0 0 0-10 % Neutrophils # (Auto) 8.4 H 11.7 H 1.8-7.8 10^3/uL Lymphocytes # (Auto) 1.3 1.4 1.0-4.0 10^3/uL Monocytes # (Auto) 1.8 H 1.9 H 0.0-1.0 10^3/uL Eosinophils # (Auto) 0.0 0.0 0.0-0.3 10^3/uL Basophils # (Auto) 0.0 0.0 0.0-0.1 10^3/uL Immature Granulocyte # (Auto) 0.1 0.2 H 0.0-0.1 10^3/uL Prothrombin Time 16.4 H 12.2-14.7 SEC INR Comment 1.3 0.8-1.4 Activated Partial Thromboplast Time 29 24-35 SEC Fibrinogen 283 221-496 MG/DL D-Dimer 0.73 H 0.00-0.49 UG/ML Sodium Level 135 135 135-145 MMOL/L Potassium Level 5.1 H 4.6 3.6-5.0 MMOL/L Chloride Level 107 107 98-107 MMOL/L Carbon Dioxide Level 21 23 21-32 MMOL/L Anion Gap 7 5 5-14 MMOL/L Blood Urea Nitrogen 49 H 43 H 7-18 MG/DL Creatinine 0.75 0.70 0.60-1.30 MG/DL Estimat Glomerular Filtration Rate > 60 > 60 BUN/Creatinine Ratio 65 61 Glucose Level 129 H 113 H 70-105 MG/DL Calcium Level 7.9 L 7.6 L 8.5-10.1 MG/DL Corrected Calcium 9.3 9.1 8.5-10.1 MG/DL Phosphorus Level 4.1 2.3-4.7 MG/DL Magnesium Level 2.0 1.6-2.4 MG/DL Total Bilirubin 1.4 H 1.3 H 0.1-1.0 MG/DL Aspartate Amino Transf (AST/SGOT) 28 28 5-34 U/L Alanine Aminotransferase (ALT/SGPT) 32 34 0-55 U/L Alkaline Phosphatase 66 66 40-136 U/L Total Protein 4.2 L 4.3 L 6.4-8.2 GM/DL Albumin 2.2 L 2.1 L 3.2-4.5 GM/DL Heparin-Induced Platelet Ab (Phuong) Negative Glucometer 106 70-110 MG/DL Lactate Dehydrogenase 407 H 125-220 U/L Test 02/03/20 15:22 02/03/20 20:36 02/04/20 04:35 02/04/20 08:40 Range/Units Glucometer 168 H 165 H 70-110 MG/DL White Blood Count 15.3 H 4.3-11.0 10^3/uL Red Blood Count 2.75 L 4.30-5.52 10^6/uL Hemoglobin 7.9 L 13.3-17.7 g/dL Hematocrit 22 L 40-54 % Mean Corpuscular Volume 81 80-99 fL Mean Corpuscular Hemoglobin 29 25-34 pg Mean Corpuscular Hemoglobin Concent 36 32-36 g/dL Red Cell Distribution Width 14.9 H 10.0-14.5 % Platelet Count 37 *L 130-400 10^3/uL Mean Platelet Volume 9.0-12.2 fL Immature Granulocyte % (Auto) 1 % Neutrophils (%) (Auto) 75 42-75 % Lymphocytes (%) (Auto) 10 L 12-44 % Monocytes (%) (Auto) 13 H 0-12 % Eosinophils (%) (Auto) 0 0-10 % Basophils (%) (Auto) 0 0-10 % Neutrophils # (Auto) 11.5 H 1.8-7.8 10^3/uL Lymphocytes # (Auto) 1.6 1.0-4.0 10^3/uL Monocytes # (Auto) 2.0 H 0.0-1.0 10^3/uL Eosinophils # (Auto) 0.0 0.0-0.3 10^3/uL Basophils # (Auto) 0.0 0.0-0.1 10^3/uL Immature Granulocyte # (Auto) 0.2 H 0.0-0.1 10^3/uL Sodium Level 137 135-145 MMOL/L Potassium Level 4.9 3.6-5.0 MMOL/L Chloride Level 108 H 98-107 MMOL/L Carbon Dioxide Level 22 21-32 MMOL/L Anion Gap 7 5-14 MMOL/L Blood Urea Nitrogen 36 H 7-18 MG/DL Creatinine 0.68 0.60-1.30 MG/DL Estimat Glomerular Filtration Rate > 60 BUN/Creatinine Ratio 53 Glucose Level 119 H 70-105 MG/DL Calcium Level 7.9 L 8.5-10.1 MG/DL Corrected Calcium 9.4 8.5-10.1 MG/DL Total Bilirubin 1.5 H 0.1-1.0 MG/DL Aspartate Amino Transf (AST/SGOT) 23 5-34 U/L Alanine Aminotransferase (ALT/SGPT) 30 0-55 U/L Alkaline Phosphatase 72 40-136 U/L Total Protein 4.2 L 6.4-8.2 GM/DL Albumin 2.1 L 3.2-4.5 GM/DL Stool Occult Blood Immunoassay NEGATIVE NEGATIVE Test 02/04/20 11:01 02/04/20 15:34 02/04/20 19:40 02/05/20 05:35 Range/Units Glucometer 262 H 182 H 165 H 125 H 70-110 MG/DL Test 02/05/20 05:38 02/05/20 11:03 02/05/20 15:41 02/05/20 20:24 Range/Units White Blood Count 16.3 H 4.3-11.0 10^3/uL Red Blood Count 2.62 L 4.30-5.52 10^6/uL Hemoglobin 7.4 L 13.3-17.7 g/dL Hematocrit 22 L 40-54 % Mean Corpuscular Volume 83 80-99 fL Mean Corpuscular Hemoglobin 28 25-34 pg Mean Corpuscular Hemoglobin Concent 34 32-36 g/dL Red Cell Distribution Width 15.3 H 10.0-14.5 % Platelet Count 54 L 130-400 10^3/uL Mean Platelet Volume 12.2 9.0-12.2 fL Immature Granulocyte % (Auto) 1 % Neutrophils (%) (Auto) 78 H 42-75 % Lymphocytes (%) (Auto) 13 12-44 % Monocytes (%) (Auto) 8 0-12 % Eosinophils (%) (Auto) 0 0-10 % Basophils (%) (Auto) 0 0-10 % Neutrophils # (Auto) 12.6 H 1.8-7.8 10^3/uL Lymphocytes # (Auto) 2.1 1.0-4.0 10^3/uL Monocytes # (Auto) 1.3 H 0.0-1.0 10^3/uL Eosinophils # (Auto) 0.1 0.0-0.3 10^3/uL Basophils # (Auto) 0.0 0.0-0.1 10^3/uL Immature Granulocyte # (Auto) 0.2 H 0.0-0.1 10^3/uL Sodium Level 135 135-145 MMOL/L Potassium Level 4.2 3.6-5.0 MMOL/L Chloride Level 107 98-107 MMOL/L Carbon Dioxide Level 23 21-32 MMOL/L Anion Gap 5 5-14 MMOL/L Blood Urea Nitrogen 25 H 7-18 MG/DL Creatinine 0.62 0.60-1.30 MG/DL Estimat Glomerular Filtration Rate > 60 BUN/Creatinine Ratio 40 Glucose Level 117 H 70-105 MG/DL Calcium Level 7.8 L 8.5-10.1 MG/DL Corrected Calcium 9.3 8.5-10.1 MG/DL Total Bilirubin 1.6 H 0.1-1.0 MG/DL Aspartate Amino Transf (AST/SGOT) 17 5-34 U/L Alanine Aminotransferase (ALT/SGPT) 23 0-55 U/L Alkaline Phosphatase 80 40-136 U/L Total Protein 4.5 L 6.4-8.2 GM/DL Albumin 2.1 L 3.2-4.5 GM/DL Glucometer 122 H 126 H 172 H 70-110 MG/DL Test 02/06/20 06:34 02/06/20 06:50 02/06/20 08:35 02/06/20 10:34 Range/Units Glucometer 139 H 160 H 70-110 MG/DL White Blood Count 17.8 H 4.3-11.0 10^3/uL Red Blood Count 2.40 L 4.30-5.52 10^6/uL Hemoglobin 6.9 *L 13.3-17.7 g/dL Hematocrit 20 *L 40-54 % Mean Corpuscular Volume 85 80-99 fL Mean Corpuscular Hemoglobin 29 25-34 pg Mean Corpuscular Hemoglobin Concent 34 32-36 g/dL Red Cell Distribution Width 15.2 H 10.0-14.5 % Platelet Count 75 L 130-400 10^3/uL Mean Platelet Volume 12.1 9.0-12.2 fL Immature Granulocyte % (Auto) 1 % Neutrophils (%) (Auto) 78 H 42-75 % Lymphocytes (%) (Auto) 13 12-44 % Monocytes (%) (Auto) 7 0-12 % Eosinophils (%) (Auto) 0 0-10 % Basophils (%) (Auto) 0 0-10 % Neutrophils # (Auto) 13.9 H 1.8-7.8 10^3/uL Lymphocytes # (Auto) 2.4 1.0-4.0 10^3/uL Monocytes # (Auto) 1.2 H 0.0-1.0 10^3/uL Eosinophils # (Auto) 0.1 0.0-0.3 10^3/uL Basophils # (Auto) 0.0 0.0-0.1 10^3/uL Immature Granulocyte # (Auto) 0.2 H 0.0-0.1 10^3/uL Sodium Level 134 L 135-145 MMOL/L Potassium Level 4.4 3.6-5.0 MMOL/L Chloride Level 106 98-107 MMOL/L Carbon Dioxide Level 23 21-32 MMOL/L Anion Gap 5 5-14 MMOL/L Blood Urea Nitrogen 18 7-18 MG/DL Creatinine 0.61 0.60-1.30 MG/DL Estimat Glomerular Filtration Rate > 60 BUN/Creatinine Ratio 30 Glucose Level 139 H 70-105 MG/DL Calcium Level 7.6 L 8.5-10.1 MG/DL Corrected Calcium 9.2 8.5-10.1 MG/DL Total Bilirubin 1.4 H 0.1-1.0 MG/DL Aspartate Amino Transf (AST/SGOT) 16 5-34 U/L Alanine Aminotransferase (ALT/SGPT) 21 0-55 U/L Alkaline Phosphatase 76 40-136 U/L Total Protein 4.3 L 6.4-8.2 GM/DL Albumin 2.0 L 3.2-4.5 GM/DL Vancomycin Level Trough 6.4 L 10.0-20.0 UG/ML Direct Bilirubin 0.8 H 0.0-0.3 MG/DL Test 02/06/20 16:00 02/06/20 20:34 02/07/20 05:25 02/07/20 05:40 Range/Units Glucometer 195 H 144 H 114 H 70-110 MG/DL White Blood Count 13.9 H 4.3-11.0 10^3/uL Red Blood Count 2.37 L 4.30-5.52 10^6/uL Hemoglobin 6.8 *L 13.3-17.7 g/dL Hematocrit 20 *L 40-54 % Mean Corpuscular Volume 86 80-99 fL Mean Corpuscular Hemoglobin 29 25-34 pg Mean Corpuscular Hemoglobin Concent 34 32-36 g/dL Red Cell Distribution Width 16.6 H 10.0-14.5 % Platelet Count 91 L 130-400 10^3/uL Mean Platelet Volume 12.6 H 9.0-12.2 fL Immature Granulocyte % (Auto) 1 % Neutrophils (%) (Auto) 76 H 42-75 % Lymphocytes (%) (Auto) 15 12-44 % Monocytes (%) (Auto) 8 0-12 % Eosinophils (%) (Auto) 1 0-10 % Basophils (%) (Auto) 0 0-10 % Neutrophils # (Auto) 10.5 H 1.8-7.8 10^3/uL Lymphocytes # (Auto) 2.0 1.0-4.0 10^3/uL Monocytes # (Auto) 1.1 H 0.0-1.0 10^3/uL Eosinophils # (Auto) 0.1 0.0-0.3 10^3/uL Basophils # (Auto) 0.0 0.0-0.1 10^3/uL Immature Granulocyte # (Auto) 0.1 0.0-0.1 10^3/uL Sodium Level 136 135-145 MMOL/L Potassium Level 4.6 3.6-5.0 MMOL/L Chloride Level 106 98-107 MMOL/L Carbon Dioxide Level 23 21-32 MMOL/L Anion Gap 7 5-14 MMOL/L Blood Urea Nitrogen 17 7-18 MG/DL Creatinine 0.60 0.60-1.30 MG/DL Estimat Glomerular Filtration Rate > 60 BUN/Creatinine Ratio 28 Glucose Level 106 H 70-105 MG/DL Calcium Level 7.8 L 8.5-10.1 MG/DL Corrected Calcium 9.3 8.5-10.1 MG/DL Total Bilirubin 1.2 H 0.1-1.0 MG/DL Aspartate Amino Transf (AST/SGOT) 16 5-34 U/L Alanine Aminotransferase (ALT/SGPT) 20 0-55 U/L Alkaline Phosphatase 78 40-136 U/L Total Protein 4.5 L 6.4-8.2 GM/DL Albumin 2.1 L 3.2-4.5 GM/DL Test 02/07/20 11:17 02/07/20 16:26 02/07/20 20:12 02/08/20 05:08 Range/Units Glucometer 126 H 122 H 157 H 70-110 MG/DL White Blood Count 14.1 H 4.3-11.0 10^3/uL Red Blood Count 2.82 L 4.30-5.52 10^6/uL Hemoglobin 8.0 L 13.3-17.7 g/dL Hematocrit 25 L 40-54 % Mean Corpuscular Volume 87 80-99 fL Mean Corpuscular Hemoglobin 28 25-34 pg Mean Corpuscular Hemoglobin Concent 33 32-36 g/dL Red Cell Distribution Width 17.0 H 10.0-14.5 % Platelet Count 81 L 130-400 10^3/uL Mean Platelet Volume 11.8 9.0-12.2 fL Immature Granulocyte % (Auto) 1 % Neutrophils (%) (Auto) 77 H 42-75 % Lymphocytes (%) (Auto) 14 12-44 % Monocytes (%) (Auto) 8 0-12 % Eosinophils (%) (Auto) 1 0-10 % Basophils (%) (Auto) 0 0-10 % Neutrophils # (Auto) 10.9 H 1.8-7.8 10^3/uL Lymphocytes # (Auto) 1.9 1.0-4.0 10^3/uL Monocytes # (Auto) 1.1 H 0.0-1.0 10^3/uL Eosinophils # (Auto) 0.2 0.0-0.3 10^3/uL Basophils # (Auto) 0.0 0.0-0.1 10^3/uL Immature Granulocyte # (Auto) 0.1 0.0-0.1 10^3/uL Sodium Level 136 135-145 MMOL/L Potassium Level 4.3 3.6-5.0 MMOL/L Chloride Level 106 98-107 MMOL/L Carbon Dioxide Level 24 21-32 MMOL/L Anion Gap 6 5-14 MMOL/L Blood Urea Nitrogen 18 7-18 MG/DL Creatinine 0.61 0.60-1.30 MG/DL Estimat Glomerular Filtration Rate > 60 BUN/Creatinine Ratio 30 Glucose Level 134 H 70-105 MG/DL Calcium Level 7.8 L 8.5-10.1 MG/DL Corrected Calcium 9.2 8.5-10.1 MG/DL Total Bilirubin 0.9 0.1-1.0 MG/DL Aspartate Amino Transf (AST/SGOT) 15 5-34 U/L Alanine Aminotransferase (ALT/SGPT) 20 0-55 U/L Alkaline Phosphatase 75 40-136 U/L Total Protein 4.8 L 6.4-8.2 GM/DL Albumin 2.2 L 3.2-4.5 GM/DL Test 02/08/20 11:29 02/08/20 15:38 02/08/20 20:43 02/09/20 04:50 Range/Units Glucometer 150 H 144 H 133 H 70-110 MG/DL White Blood Count 14.8 H 4.3-11.0 10^3/uL Red Blood Count 2.81 L 4.30-5.52 10^6/uL Hemoglobin 8.0 L 13.3-17.7 g/dL Hematocrit 25 L 40-54 % Mean Corpuscular Volume 89 80-99 fL Mean Corpuscular Hemoglobin 29 25-34 pg Mean Corpuscular Hemoglobin Concent 32 32-36 g/dL Red Cell Distribution Width 18.3 H 10.0-14.5 % Platelet Count 81 L 130-400 10^3/uL Mean Platelet Volume 12.1 9.0-12.2 fL Immature Granulocyte % (Auto) 1 % Neutrophils (%) (Auto) 77 H 42-75 % Lymphocytes (%) (Auto) 14 12-44 % Monocytes (%) (Auto) 8 0-12 % Eosinophils (%) (Auto) 0 0-10 % Basophils (%) (Auto) 0 0-10 % Neutrophils # (Auto) 11.4 H 1.8-7.8 10^3/uL Lymphocytes # (Auto) 2.1 1.0-4.0 10^3/uL Monocytes # (Auto) 1.1 H 0.0-1.0 10^3/uL Eosinophils # (Auto) 0.0 0.0-0.3 10^3/uL Basophils # (Auto) 0.0 0.0-0.1 10^3/uL Immature Granulocyte # (Auto) 0.1 0.0-0.1 10^3/uL Sodium Level 140 135-145 MMOL/L Potassium Level 4.2 3.6-5.0 MMOL/L Chloride Level 109 H 98-107 MMOL/L Carbon Dioxide Level 25 21-32 MMOL/L Anion Gap 6 5-14 MMOL/L Blood Urea Nitrogen 19 H 7-18 MG/DL Creatinine 0.65 0.60-1.30 MG/DL Estimat Glomerular Filtration Rate > 60 BUN/Creatinine Ratio 29 Glucose Level 118 H 70-105 MG/DL Calcium Level 7.8 L 8.5-10.1 MG/DL Corrected Calcium 9.3 8.5-10.1 MG/DL Total Bilirubin 0.9 0.1-1.0 MG/DL Aspartate Amino Transf (AST/SGOT) 14 5-34 U/L Alanine Aminotransferase (ALT/SGPT) 15 0-55 U/L Alkaline Phosphatase 74 40-136 U/L B-Type Natriuretic Peptide 1180.5 H <100.0 PG/ML Total Protein 5.0 L 6.4-8.2 GM/DL Albumin 2.1 L 3.2-4.5 GM/DL Procalcitonin 0.17 H <0.10 NG/ML Test 02/09/20 06:04 02/09/20 10:05 02/09/20 11:10 02/09/20 11:49 Range/Units Glucometer 118 H 135 H 108 70-110 MG/DL Blood Gas Puncture Site RR Blood Gas Patient Temperature 36.9 Arterial Blood pH 7.51 H 7.37-7.43 Arterial Blood Partial Pressure CO2 26 L 35-45 MMHG Arterial Blood Partial Pressure O2 89 79-93 MMHG Arterial Blood HCO3 21 L 23-27 MMOL/L Arterial Blood Total CO2 21.2 21.0-31.0 MMOL/L Arterial Blood Oxygen Saturation 97 94-100 % Arterial Blood Base Excess -2.2 -2.5-2.5 MMOL/L Alo Test YES-POS Blood Gas Ventilator Setting NO Blood Gas Inspired Oxygen 5L Test 02/09/20 12:07 02/09/20 13:30 Range/Units White Blood Count 16.1 H 4.3-11.0 10^3/uL Red Blood Count 2.49 L 4.30-5.52 10^6/uL Hemoglobin 7.3 L 13.3-17.7 g/dL Hematocrit 23 L 40-54 % Mean Corpuscular Volume 92 80-99 fL Mean Corpuscular Hemoglobin 29 25-34 pg Mean Corpuscular Hemoglobin Concent 32 32-36 g/dL Red Cell Distribution Width 18.2 H 10.0-14.5 % Platelet Count 57 L 130-400 10^3/uL Mean Platelet Volume 12.7 H 9.0-12.2 fL Immature Granulocyte % (Auto) 3 % Neutrophils (%) (Auto) 52 42-75 % Lymphocytes (%) (Auto) 40 12-44 % Monocytes (%) (Auto) 5 0-12 % Eosinophils (%) (Auto) 0 0-10 % Basophils (%) (Auto) 0 0-10 % Neutrophils # (Auto) 8.4 H 1.8-7.8 10^3/uL Lymphocytes # (Auto) 6.5 H 1.0-4.0 10^3/uL Monocytes # (Auto) 0.8 0.0-1.0 10^3/uL Eosinophils # (Auto) 0.0 0.0-0.3 10^3/uL Basophils # (Auto) 0.0 0.0-0.1 10^3/uL Immature Granulocyte # (Auto) 0.4 H 0.0-0.1 10^3/uL Neutrophils % (Manual) 40 % Lymphocytes % (Manual) 52 % Monocytes % (Manual) 5 % Eosinophils % (Manual) 0 % Basophils % (Manual) 0 % Myelocytes % 1 % Band Neutrophils 2 % Anisocytosis SLIGHT D-Dimer 7.74 H 0.00-0.49 UG/ML Sodium Level 147 H 135-145 MMOL/L Potassium Level 4.4 3.6-5.0 MMOL/L Chloride Level 112 H 98-107 MMOL/L Carbon Dioxide Level 28 21-32 MMOL/L Anion Gap 7 5-14 MMOL/L Blood Urea Nitrogen 21 H 7-18 MG/DL Creatinine 0.72 0.60-1.30 MG/DL Estimat Glomerular Filtration Rate > 60 BUN/Creatinine Ratio 29 Glucose Level 123 H 70-105 MG/DL Calcium Level 6.8 L 8.5-10.1 MG/DL Magnesium Level 2.1 1.6-2.4 MG/DL Troponin I 0.107 H <0.028 NG/ML Coronavirus 2019 (KRISTY) Negative Negative Micro Results Microbiology 02/02/20 Blood Culture - Final, Complete No growth 02/02/20 Influenza Types A,B Antigen (VENKAT) - Final, Complete 02/02/20 Blood Culture - Final, Complete Staphylococcus lugdunensis See Comments My Orders Orders - ELMER RUIZ MD Ct Head Wo (02/09/20 10:08) Ekg-Prn For Chest Pain Or Rhyt (02/09/20 10:08) Transfer - Bed/Room/Location (02/09/20 10:39) Initiate [facility] Iv E-Lyte Replace (02/09/20 10:39) Teleicu (02/09/20 10:39) [facility] Nursing Screening/Treatme .admit (02/09/20 10:39) Ns (Ivpb) (Sodium C... W/Epinephrine 1 (02/09/20 12:15) Vital Signs/I&O 02/03/20 02/03/20 02/03/20 02/03/20 00:53 01:00 04:00 05:07 Temp 36.4 36.5 36.5 Pulse 87 90 86 86 Resp 20 20 20 B/P (MAP) 102/48 (66) 99/60 (73) 99/60 (73) Pulse Ox 96 94 94 O2 Delivery Nasal Cannula Nasal Cannula Nasal Cannula O2 Flow Rate 1.00 1.00 1.00 02/03/20 02/03/20 02/03/20 02/03/20 07:00 07:54 08:00 08:00 Temp 36.0 Pulse 91 87 Resp 20 B/P (MAP) 102/49 (66) Pulse Ox 91 98 98 O2 Delivery Nasal Cannula Nasal Cannula Nasal Cannula O2 Flow Rate 1.00 1.00 2.00 02/03/20 02/03/20 02/03/20 02/03/20 11:15 11:45 12:00 12:48 Temp 36.2 35.8 36.2 Pulse 92 92 92 89 Resp 20 20 20 B/P (MAP) 91/54 104/53 91/54 (66) Pulse Ox 94 94 O2 Delivery Nasal Cannula Nasal Cannula Nasal Cannula O2 Flow Rate 2.00 2.00 1.00 02/03/20 02/03/20 02/03/20 02/03/20 14:45 16:19 19:00 19:15 Temp 36.1 37.0 36.6 Pulse 91 81 94 84 Resp 20 18 20 B/P (MAP) 100/55 110/60 (77) 102/58 (73) Pulse Ox 92 95 95 O2 Delivery Nasal Cannula Nasal Cannula Nasal Cannula O2 Flow Rate 1.00 1.00 1.00 02/03/20 02/03/20 02/03/20 02/04/20 19:42 20:00 23:48 01:00 Temp 36.8 Pulse 96 85 Resp 18 B/P (MAP) 110/54 (72) Pulse Ox 83 98 92 O2 Delivery Nasal Cannula Nasal Cannula Nasal Cannula O2 Flow Rate 1.00 2.00 1.00 02/04/20 02/04/20 02/04/20 02/04/20 04:07 07:00 07:15 08:00 Temp 37.0 34.8 Pulse 91 92 100 Resp 20 18 B/P (MAP) 111/55 (73) 123/58 (79) Pulse Ox 91 90 92 O2 Delivery Nasal Cannula Nasal Cannula Nasal Cannula O2 Flow Rate 1.00 3.00 1.00 02/04/20 02/04/20 02/04/20 02/04/20 08:00 12:00 12:45 15:36 Temp 34.9 Pulse 97 87 90 Resp 20 B/P (MAP) 106/51 (69) Pulse Ox 93 O2 Delivery Nasal Cannula Nasal Cannula O2 Flow Rate 2.00 1.00 02/04/20 02/04/20 02/04/20 02/04/20 16:28 18:33 19:00 20:00 Temp 37.3 Pulse 89 88 Resp 16 B/P (MAP) 132/63 (86) Pulse Ox 93 97 98 O2 Delivery Nasal Cannula Nasal Cannula Nasal Cannula O2 Flow Rate 1.00 2.00 2.00 02/04/20 02/05/20 02/05/20 02/05/20 20:01 00:00 01:00 04:00 Temp 36.6 37.2 37.2 Pulse 89 82 76 86 Resp 18 18 18 B/P (MAP) 136/63 (87) 135/63 (87) 130/51 (77) Pulse Ox 99 94 93 O2 Delivery Nasal Cannula Nasal Cannula Nasal Cannula O2 Flow Rate 1.00 2.00 2.00 02/05/20 02/05/20 02/05/20 02/05/20 06:46 08:00 08:00 11:23 Temp 36.7 36.8 Pulse 85 97 87 Resp 17 18 B/P (MAP) 117/49 (71) 124/55 (78) Pulse Ox 93 96 O2 Delivery Nasal Cannula Nasal Cannula Nasal Cannula O2 Flow Rate 2.00 2.00 2.00 02/05/20 02/05/20 02/05/20 02/05/20 12:49 16:26 19:00 19:45 Temp 36.4 37.0 Pulse 85 86 105 94 Resp 18 17 B/P (MAP) 126/53 (77) 115/50 (71) Pulse Ox 95 93 O2 Delivery Nasal Cannula Nasal Cannula O2 Flow Rate 2.00 2.00 02/05/20 02/05/20 02/06/20 02/06/20 21:30 23:27 01:00 03:56 Temp 37.1 37.2 Pulse 96 86 86 Resp 18 18 B/P (MAP) 117/57 (77) 132/60 (84) Pulse Ox 90 96 O2 Delivery Nasal Cannula Nasal Cannula Nasal Cannula O2 Flow Rate 2.00 2.00 4.00 02/06/20 02/06/20 02/06/20 02/06/20 07:00 07:52 08:00 08:00 Temp 37.4 Pulse 89 95 Resp 18 B/P (MAP) 123/47 (72) Pulse Ox 90 93 O2 Delivery Nasal Cannula Nasal Cannula Nasal Cannula O2 Flow Rate 3.00 3.00 2.00 02/06/20 02/06/20 02/06/20 02/06/20 12:00 12:41 16:00 19:56 Temp 37.0 37.7 Pulse 92 87 107 Resp 20 B/P (MAP) 138/64 (88) 118/56 (76) Pulse Ox 95 95 O2 Delivery Nasal Cannula Nasal Cannula Nasal Cannula O2 Flow Rate 3.00 3.00 2.00 02/06/20 02/07/20 02/07/20 02/07/20 20:06 00:00 04:00 07:48 Temp 37.4 36.8 36.8 Pulse 92 85 101 Resp 20 B/P (MAP) 125/53 (77) 122/58 (79) 120/61 (80) Pulse Ox 98 94 93 92 O2 Delivery Nasal Cannula Nasal Cannula Nasal Cannula Nasal Cannula O2 Flow Rate 3.00 3.00 3.00 3.00 02/07/20 02/07/20 02/07/20 02/07/20 08:00 08:00 12:00 12:01 Temp 36.1 36.0 37.2 Pulse 88 86 87 Resp 20 18 16 B/P (MAP) 108/56 (73) 110/55 (73) 113/57 Pulse Ox 93 95 97 O2 Delivery Nasal Cannula Nasal Cannula Nasal Cannula Nasal Cannula O2 Flow Rate 3.00 3.00 3.00 3.00 02/07/20 02/07/20 02/07/20 02/07/20 12:23 13:19 14:30 15:49 Temp 37.2 36.2 37.1 36.9 Pulse 92 85 91 88 Resp 16 16 16 16 B/P (MAP) 121/57 118/55 127/56 133/60 Pulse Ox 99 98 95 95 O2 Delivery Nasal Cannula Nasal Cannula Nasal Cannula Nasal Cannula O2 Flow Rate 3.00 3.00 3.00 3.00 02/07/20 02/07/20 02/07/20 02/07/20 16:00 16:58 17:41 20:00 Temp 36.1 37.8 37.5 37.0 Pulse 107 89 Resp 16 18 B/P (MAP) 101/52 (68) 109/48 (68) Pulse Ox 94 96 O2 Delivery Nasal Cannula Nasal Cannula O2 Flow Rate 3.00 3.00 02/07/20 02/07/20 02/08/20 02/08/20 20:10 20:20 00:10 04:00 Temp 36.8 37.4 Pulse 81 95 Resp 20 20 B/P (MAP) 118/56 (76) 143/63 (89) Pulse Ox 91 92 93 O2 Delivery Nasal Cannula Nasal Cannula Nasal Cannula Nasal Cannula O2 Flow Rate 3.00 3.00 3.00 3.00 02/08/20 02/08/20 02/08/20 02/08/20 08:00 08:00 08:12 12:00 Temp 37.6 36.7 Pulse 90 101 Resp 20 20 B/P (MAP) 148/90 (109) 115/56 (75) Pulse Ox 92 91 92 O2 Delivery Nasal Cannula Nasal Cannula Nasal Cannula Nasal Cannula O2 Flow Rate 3.00 3.00 3.00 3.00 02/08/20 02/08/20 02/08/20 02/08/20 16:00 16:20 19:52 20:37 Temp 37.1 37.1 Pulse 107 104 76 Resp 18 18 B/P (MAP) 119/56 (77) 112/56 (74) Pulse Ox 93 92 92 79 O2 Delivery Nasal Cannula Nasal Cannula Nasal Cannula O2 Flow Rate 3.00 3.00 4.00 4.00 02/09/20 02/09/20 02/09/2002/08/20 00:24 07:56 08:45 09:50 Temp 36.8 36.4 36.2 Pulse 108 104 116 Resp 18 20 28 B/P (MAP) 133/61 (85) 129/53 (78) Pulse Ox 94 96 93 O2 Delivery Nasal Cannula Nasal Cannula High Flow N/C O2 Flow Rate 4.00 6.00 6.00 02/09/20 02/09/20 02/09/20 10:56 11:00 12:00 Pulse 57 70 65 Resp 37 26 B/P (MAP) 103/41 (61) Pulse Ox 97 98 O2 Delivery OxyMask OxyMask O2 Flow Rate 5.00 5.00 02/09/20 00:00 Intake Total 1075 ml Output Total 1225 ml Balance -150 ml Blood Pressure Mean: 61 FSBG Bedside Testing Finger Stick Blood Glucose: 135 Blood Glucose Action Taken: RN Notified Diagnostic Imaging Reviewed: Reviewed by Me Clinical Quality Measures DVT/VTE Risk/Contraindication: Risk Factor Score Per Nursin RFS Level Per Nursing on Admit: 4+=Very High Contraindications-Pharm: Other *list below* Other: Thrombocytopenia ELMER RIUZ MD Feb 09, 2020 16:46
--- NOTE | 2020-02-09 16:47 | Discharge Summary ---
Diagnosis/Chief Complaint Date of Admission Feb 02, 2020 at 10:30 Date of Discharge Feb 09, 2020 at 15:00 Admission Diagnosis Severe sepsis due to pneumonia Primary Care Miki Rhoades DO Discharge Diagnosis (1) Acute respiratory failure with hypoxia Status: Acute (2) PNA (pneumonia) Status: Acute (3) Lung nodule Status: Acute (4) Microcytic anemia Status: Acute (5) Thrombocytopenia Status: Acute (6) Severe sepsis Status: Resolved (7) Azotemia Status: Resolved (8) BMI 20.0-20.9, adult Status: Acute Discharge Summary Discharge Physical Exam Allergies: Coded Allergies: NKANo Known Allergies (Verified Allergy, Unknown, 02/28/06) Vitals & I&Os Vital Signs Date Time Temp Pulse Resp B/P (MAP) Pulse Ox O2 Delivery O2 Flow Rate FiO2 02/09/20 12:00 65 26 98 OxyMask 5.00 02/09/20 07:56 36.4 Hospital Course Labs (last 24 hrs) Laboratory Tests 02/08/20 20:43: Glucometer 133H 02/09/20 04:50: White Blood Count 14.8H, Red Blood Count 2.81L, Hemoglobin 8.0L, Hematocrit 25L, Mean Corpuscular Volume 89, Mean Corpuscular Hemoglobin 29, Mean Corpuscular Hemoglobin Concent 32, Red Cell Distribution Width 18.3H, Platelet Count 81L, Mean Platelet Volume 12.1, Immature Granulocyte % (Auto) 1, Neutrophils (%) (Auto) 77H, Lymphocytes (%) (Auto) 14, Monocytes (%) (Auto) 8, Eosinophils (%) (Auto) 0, Basophils (%) (Auto) 0, Neutrophils # (Auto) 11.4H, Lymphocytes # (Auto) 2.1, Monocytes # (Auto) 1.1H, Eosinophils # (Auto) 0.0, Basophils # (Auto) 0.0, Immature Granulocyte # (Auto) 0.1, Sodium Level 140, Potassium Level 4.2, Chloride Level 109H, Carbon Dioxide Level 25, Anion Gap 6, Blood Urea Nitrogen 19H, Creatinine 0.65, Estimat Glomerular Filtration Rate > 60, BUN/Creatinine Ratio 29, Glucose Level 118H, Calcium Level 7.8L, Corrected Calcium 9.3, Total Bilirubin 0.9, Aspartate Amino Transf (AST/SGOT) 14, Alanine Aminotransferase (ALT/SGPT) 15, Alkaline Phosphatase 74, B-Type Natriuretic Peptide 1180.5H, Total Protein 5.0L, Albumin 2.1L, Procalcitonin 0.17H 02/09/20 06:04: Glucometer 118H 02/09/20 10:05: Glucometer 135H 02/09/20 11:10: Blood Gas Puncture Site RR, Blood Gas Patient Temperature 36.9, Arterial Blood pH 7.51H, Arterial Blood Partial Pressure CO2 26L, Arterial Blood Partial Pressure O2 89, Arterial Blood HCO3 21L, Arterial Blood Total CO2 21.2, Arterial Blood Oxygen Saturation 97, Arterial Blood Base Excess -2.2, Alo Test YES-POS, Blood Gas Ventilator Setting NO, Blood Gas Inspired Oxygen 5L 02/09/20 11:49: Glucometer 108 02/09/20 12:07: White Blood Count 16.1H, Red Blood Count 2.49L, Hemoglobin 7.3L, Hematocrit 23L, Mean Corpuscular Volume 92, Mean Corpuscular Hemoglobin 29, Mean Corpuscular Hemoglobin Concent 32, Red Cell Distribution Width 18.2H, Platelet Count 57L, Mean Platelet Volume 12.7H, Immature Granulocyte % (Auto) 3, Neutrophils (%) (Auto) 52, Lymphocytes (%) (Auto) 40, Monocytes (%) (Auto) 5, Eosinophils (%) (Auto) 0, Basophils (%) (Auto) 0, Neutrophils # (Auto) 8.4H, Lymphocytes # (Auto) 6.5H, Monocytes # (Auto) 0.8, Eosinophils # (Auto) 0.0, Basophils # (Auto) 0.0, Immature Granulocyte # (Auto) 0.4H, Neutrophils % (Manual) 40, Lymphocytes % (Manual) 52, Monocytes % (Manual) 5, Eosinophils % (Manual) 0, Basophils % (Manual) 0, Myelocytes % 1, Band Neutrophils 2, Anisocytosis SLIGHT, D-Dimer 7.74H, Sodium Level 147H, Potassium Level 4.4, Chloride Level 112H, Carbon Dioxide Level 28, Anion Gap 7, Blood Urea Nitrogen 21H, Creatinine 0.72, Estimat Glomerular Filtration Rate > 60, BUN/Creatinine Ratio 29, Glucose Level 123H, Calcium Level 6.8L, Magnesium Level 2.1, Troponin I 0.107H 02/09/20 13:30: Coronavirus 2019 ([facility]) Negative Microbiology 02/02/20 Blood Culture - Final, Complete No growth 02/02/20 Influenza Types A,B Antigen ([facility]KAT) - Final, Complete Patient resulted labs reviewed. Pending Labs Laboratory Tests 02/09/20 10:05: Glucometer 135 02/09/20 11:10: Blood Gas Puncture Site RR, Blood Gas Patient Temperature 36.9, Arterial Blood pH 7.51, Arterial Blood Partial Pressure CO2 26, Arterial Blood Partial Pressure O2 89, Arterial Blood HCO3 21, Arterial Blood Total CO2 21.2, Arterial Blood Oxygen Saturation 97, Arterial Blood Base Excess -2.2, Alo Test YES-POS, Blood Gas Ventilator Setting NO, Blood Gas Inspired Oxygen 5L 02/09/20 11:49: Glucometer 108 02/09/20 12:07: White Blood Count 16.1, Red Blood Count 2.49, Hemoglobin 7.3, Hematocrit 23, Mean Corpuscular Volume 92, Mean Corpuscular Hemoglobin 29, Mean Corpuscular Hemoglobin Concent 32, Red Cell Distribution Width 18.2, Platelet Count 57, Mean Platelet Volume 12.7, Immature Granulocyte % (Auto) 3, Neutrophils (%) (Auto) 52, Lymphocytes (%) (Auto) 40, Monocytes (%) (Auto) 5, Eosinophils (%) (Auto) 0, Basophils (%) (Auto) 0, Neutrophils # (Auto) 8.4, Lymphocytes # (Auto) 6.5, Monocytes # (Auto) 0.8, Eosinophils # (Auto) 0.0, Basophils # (Auto) 0.0, Immature Granulocyte # (Auto) 0.4, Neutrophils % (Manual) 40, Lymphocytes % (Manual) 52, Monocytes % (Manual) 5, Eosinophils % (Manual) 0, Basophils % (Manual) 0, Myelocytes % 1, Band Neutrophils 2, Anisocytosis SLIGHT, D-Dimer 7.74, Sodium Level 147, Potassium Level 4.4, Chloride Level 112, Carbon Dioxide Level 28, Anion Gap 7, Blood Urea Nitrogen 21, Creatinine 0.72, Estimat Glomerular Filtration Rate > 60, BUN/Creatinine Ratio 29, Glucose Level 123, Calcium Level 6.8, Magnesium Level 2.1, Troponin I 0.107 02/09/20 13:30: Coronavirus (COVID-19)(PCR) [Pending], Coronavirus 2019 ([facility]) Negative Imaging: Reviewed Imaging Report Discharge Home Medications: Active Scripts Active Hydrocodone/Acetaminophen 5 MG/325 MG TAB (Hydrocodone/Acetaminophen) 1 Each Tablet 1 Tab PO Q6H PRN MDD 10 TABS 3 Days Lopressor Tab (Metoprolol Tartrate) 25 Mg Tablet 12.5 Mg PO BID Colace (Docusate Sodium) 100 Mg Cap 100 Mg PO BID Reported Lipitor (Atorvastatin Calcium) 40 Mg Tablet 40 Mg PO DAILY Multaq (Dronedarone HCl) 400 Mg Tablet 400 Mg PO BID Famotidine 20 Mg Tablet 20 Mg PO BID Eliquis (Apixaban) 5 Mg Tablet 5 Mg PO BID 30 Days TAKE 2 TABLETS BID X 7 DAYS, THEN 1 TABLET BID Metformin 500 Mg (Metformin HCl) 500 Mg Tablet 1 Each PO BID WITH MEALS Fish Oil 1,000 Mg Ec Softgel ([place]-3/Dha/Epa/Fish Oil) 1 Each Capsule.dr 3 Each PO DAILY Instructions to patient/family Please see electronic discharge instructions given to patient. Clinical Quality Measures DVT/VTE Risk/Contraindication: Risk Factor Score Per Nursin RFS Level Per Nursing on Admit: 4+=Very High Contraindications-Pharm: Other *list below* Other: Thrombocytopenia ELMER RUIZ MD Feb 09, 2020 16:47
== END 2020-02-09 15:00 | disposition expired | DRG 871 ==
LOC: EDUNIT# 08:20 → ER 08:22 → 4TH 10:30 → ICU 02-09 10:30
PROVIDERS: ADMIT Internal Medicine; ATTEND Internal Medicine
PROC: 5A12012 Performance of Cardiac Output, Single, Manual (ICD-10-PCS; principal; 2020-02-09)
DX: A41.9 Sepsis, unspecified organism (principal); J18.9 Pneumonia, unspecified organism; J96.01 Acute respiratory failure with hypoxia; E43 Unspecified severe protein-calorie malnutrition; Z68.1 Body mass index [BMI] 19.9 or less, adult; R65.20 Severe sepsis without septic shock; E86.0 Dehydration; D69.6 Thrombocytopenia, unspecified; D64.9 Anemia, unspecified; E11.9 Type 2 diabetes mellitus without complications; I46.9 Cardiac arrest, cause unspecified; Z20.828 Contact with and (suspected) exposure to other viral communicable diseases; I48.0 Paroxysmal atrial fibrillation; I73.9 Peripheral vascular disease, unspecified; I25.10 Atherosclerotic heart disease of native coronary artery without angina pectoris; E78.00 Pure hypercholesterolemia, unspecified; E78.5 Hyperlipidemia, unspecified; I10 Essential (primary) hypertension; M54.9 Dorsalgia, unspecified; R91.1 Solitary pulmonary nodule; Z98.1 Arthrodesis status; Z79.84 Long term (current) use of oral hypoglycemic drugs; Z87.891 Personal history of nicotine dependence; Z95.5 Presence of coronary angioplasty implant and graft; I25.2 Old myocardial infarction; Z79.01 Long term (current) use of anticoagulants; Z95.2 Presence of prosthetic heart valve; Z80.0 Family history of malignant neoplasm of digestive organs; Z82.49 Family history of ischemic heart disease and other diseases of the circulatory system; Z83.6 Family history of other diseases of the respiratory system
CPT/HCPCS: 36415; 70450; 70490; 71045; 71250; 80048; 80053; 80202; 81000; 82150; 82248; 82274; 82728; 82746; 82805; 82962; 83010; 83540; 83605; 83615; 83690; 83735; 83880; 84100; 84145; 84484; 85007; 85025; 85027; 85379; 85384; 85610; 85730; 86022; 86850; 86880; 86900; 86901; 86920; 87040; 87635; 87804; 93005; 93041; 94640; 94664; 94760; 94761